=== PATIENT | female | born 1960 ===

== ENCOUNTER 2016-08-18 10:53 | Emergency (ER) | payer OTHER ==
[2016-08-18 10:59] VITALS: BMI 25.4
[2016-08-18 11:00] VITALS: RESP 18; TEMP 97.7; O2SAT 98
--- NOTE | 2016-08-18 11:24 | C.PDOC ---
History Of Present Illness 56 y/o female c/o lumps in both breasts for years that have been getting bigger ; pt reports having a mammogram in Jan 2016, but doesn't know results. pt sts lumps in both breasts started becoming painful 4 days ago. denies fever and chills. pt took ibuprofen this morning with mild decrease in pain. Time Seen by Provider: 08/18/16 11:09 Chief Complaint (Nursing): Breast Problem History Per: Patient History/Exam Limitations: no limitations Onset/Duration Of Symptoms: Days (4) Current Symptoms Are (Timing): Worse Severity: Moderate Past Medical History Reviewed: Historical Data, Nursing Documentation, Vital Signs Vital Signs: Last Vital Signs Temp 97.7 F 08/18/16 10:59 Pulse 84 08/18/16 12:04 Resp 18 08/18/16 12:04 BP 124/73 08/18/16 12:04 Pulse Ox 98 08/18/16 12:10 - Medical History PMH: No Chronic Diseases Surgical History: No Surg Hx Family History: States: Unknown Family Hx - Social History Hx Tobacco Use: No Hx Alcohol Use: No Hx Substance Use: No - Immunization History Hx Tetanus Toxoid Vaccination: No Hx Influenza Vaccination: No Hx Pneumococcal Vaccination: No Review Of Systems Constitutional: Negative for: Fever, Chills Cardiovascular: Negative for: Chest Pain Respiratory: Negative for: Cough Gastrointestinal: Negative for: Nausea, Vomiting, Abdominal Pain Genitourinary: Positive for: Other (bilateral breast pain) Skin: Negative for: Rash Neurological: Negative for: Weakness, Numbness Physical Exam - Physical Exam Appears: Non-toxic, Other (uncomfortable) Skin: Warm, Dry Head: Atraumatic, No Normacephalic Cardiovascular: Rhythm Regular, No Murmur Respiratory: Normal Breath Sounds, No Rales, No Rhonchi, No Wheezing Gastrointestinal/Abdominal: Soft, No Tenderness Pelvic: Other (left breast: no nipple discharge, approx 1 x 2 cm firm area in one o'clock position, no swelling, erythema or warmth; right breast: no nipple discharge, 1 cm firm mobile tender mass in 7 oclock position. ) Extremity: No Pedal Edema, No Swelling ED Course And Treatment O2 Sat by Pulse Oximetry: 98 Medical Decision Making Medical Decision Making: Discussed with Dr Copeland; pt had normal mammogram on Jan 21, [address] Copeland recommends bilateral breast ultrasound; her office will fax over paperwork for patient to schedule outpatient ultrasound. 1201 pm faxed rx for bilateral ultrasound received; attempted to make appt at [facility] outpatient radiology facility but pt did not have mammomgram there in Jan 2016; pt advised to return to radiology center where mammogram was done to have ultrasound, and then make follow up appoimtment with Dr Copeland. pt and family understand. Disposition Counseled Patient/Family Regarding: Diagnosis, Need For Followup, Rx Given - Disposition Referrals: Yudi Copeland [Staff Provider] - Disposition: HOME/ ROUTINE Disposition Time: 12:05 Condition: STABLE Additional Instructions: Garcia troy para la ecografa de mama en el centro de radiologa donde realiz keenan mamografa. Garcia shaylee troy con el Dr. Barrera para hacer un seguimiento de los resultados de ultrasson y para shaylee evaluacin adicional de los senos. Candelero Abajo ibuprofeno (con alimentos) segn lo prescrito para el dolor. Prescriptions: Ibuprofen [Motrin] 600 mg PO TID #30 tab Forms: Gen Discharge Inst Czech, Work Excuse Print Language: HONDURAN - Clinical Impression Clinical Impression: Pain of breast
[2016-08-18 12:04] VITALS: BP 124/73; PULSE 84
== END 2016-08-18 12:16 | disposition home or self-care (01) ==
LOC: C.ER 10:53
DX: N64.4 Mastodynia (principal)
CPT/HCPCS: 96372; 99284; J1885

== ENCOUNTER 2017-02-09 17:41 | Emergency (ER) | payer OTHER ==
[2017-02-09 17:42] VITALS: BMI 29.5
[2017-02-09 17:46] VITALS: BP 152/88; PULSE 105; RESP 20; TEMP 97.9; O2SAT 98
[2017-02-09 18:51] LABS: URINE BACTERIA RARE (<OCC); URINE BILIRUBIN NEGATIVE (NEGATIVE); URINE BLOOD NEGATIVE (NEGATIVE); URINE COLOR Colorless (YELLOW); URINE GLUCOSE (UA) NORMAL (Normal); URINE KETONE NEGATIVE (NEGATIVE); URINE LEUKOCYTE ESTERASE NEG Leu/uL (Negative); URINE PROTEIN NEGATIVE (NEGATIVE); URINE UROBILINOGEN NORMAL mg/dL (0.2-1.0); WBC URINE < 1 /hpf (0-5)
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
--- NOTE | 2017-02-09 19:10 | C.PDOC ---
History Of Present Illness 56 year old female presents to the ED for evaluation, stating she has been feeling "bumps in her vagina" for the past month. Patient also reports vaginal pain and a burning sensation when she urinates. She denies fever, chills. Time Seen by Provider: 02/09/17 17:55 Chief Complaint (Nursing): Female Genitourinary History Per: Patient History/Exam Limitations: no limitations Onset/Duration Of Symptoms: Days Current Symptoms Are (Timing): Still Present Additional History Per: Patient Past Medical History Reviewed: Historical Data, Nursing Documentation, Vital Signs Vital Signs: Last Vital Signs Temp 97.9 F 02/09/17 17:45 Pulse 105 H 02/09/17 17:45 Resp 20 02/09/17 19:35 BP 152/88 H 02/09/17 17:45 Pulse Ox 98 02/09/17 19:33 - Medical History PMH: No Chronic Diseases Surgical History: No Surg Hx Family History: States: Unknown Family Hx - Social History Hx Tobacco Use: No Hx Alcohol Use: No Hx Substance Use: No - Immunization History Hx Tetanus Toxoid Vaccination: No Hx Influenza Vaccination: No Hx Pneumococcal Vaccination: No Review Of Systems Constitutional: Negative for: Fever, Chills Genitourinary: Positive for: Other (bumps inside vagina, burning sensation when urinating ) Physical Exam - Physical Exam Appears: Non-toxic, No Acute Distress Skin: Normal Color, Warm, Dry Pelvic: Vaginal Discharge (small amount, white ), No Cervix Open, Other (no lacerations, no signs of trauma, no herpetic lesions, no evidence of abscess. Sharepoint Administrator, Puja Salamanca RN) Neurological/Psych: Oriented x3, Normal Speech, Normal Cognition ED Course And Treatment O2 Sat by Pulse Oximetry: 98 (on RA) Pulse Ox Interpretation: Normal Medical Decision Making Medical Decision Making: UA ordered and reviewed. Motrin PO administered. Case discussed with Dr. Kiley English (PIPE STRAIGHTENER call center consultant), who evaluated the patient at bedside. Dr. English states the "bumps" that patient is feeling are cystoceles and feels the patient's pain is originating from her bladder. Recommended prescribing Pyridium and possibly Uribel. Pt to follow up w OBGYN. return prev advised Disposition - Disposition Referrals: [facility] [Outside] Disposition: HOME/ ROUTINE Disposition Time: 19:09 Condition: STABLE Additional Instructions: Please follow up with an chargeback specialist in the next week. Return to the ER for any worsening symptoms, fever, abdominal pain, or for any other concerns. Prescriptions: Meth/Meblue/Sod Phos/Psal/Hyos [Uribel] 1 cap PO QID PRN #20 cap PRN Reason: bladder pain Phenazopyridine HCl [Pyridium] 200 mg PO TID PRN #10 tablet PRN Reason: dysuria Instructions: Pelvic Pain in Women (ED) Forms: Gen Discharge Inst Citizen Of [place], [employer] (Citizen Of [place]) Print Language: [place] CITIZEN - Clinical Impression Clinical Impression: Dysuria, Vaginal pain - Scribe Statement The provider has reviewed the documentation as recorded by the Scribe (Laurence English) Provider Attestation: All medical record entries made by the Scribe were at my direction and personally dictated by me. I have reviewed the chart and agree that the record accurately reflects my personal performance of the history, physical exam, medical decision making, and the department course for this patient. I have also personally directed, reviewed, and agree with the discharge instructions and disposition.
== END 2017-02-09 19:35 | disposition home or self-care (01) ==
LOC: C.ER 17:41
DX: R10.2 Pelvic and perineal pain (principal); R30.0 Dysuria

== ENCOUNTER 2017-02-21 19:35 | Emergency (ER) | payer OTHER ==
[2017-02-21 19:36] VITALS: BMI 29.5
--- NOTE | 2017-02-21 21:46 | C.PDOC ---
History Of Present Illness Patient presents to the ER with a complaint of intermittent pelvic pain for the past few weeks. Patient was seen by her BANK COMPLIANCE OFFICER this morning, Dr. Arreaga, who sent her to the ER for evaluation. Denies vaginal bleeding, fever, or chills. Time Seen by Provider: 02/21/17 21:46 Chief Complaint (Nursing): Female Genitourinary History Per: Patient History/Exam Limitations: no limitations Onset/Duration Of Symptoms: Days, Intermittent Episodes Current Symptoms Are (Timing): Still Present Quality Of Discomfort: Unable To Describe Associated Symptoms: denies: Fever, Chills, Other (Vaginal bleeding) Alleviating Factors: None Recent travel outside of the [place]: No Abnormal Vaginal Bleeding: No Past Medical History Reviewed: Historical Data, Nursing Documentation, Vital Signs Family History: States: No Known Family Hx - Social History Hx Tobacco Use: No Hx Alcohol Use: No Hx Substance Use: No - Immunization History Hx Tetanus Toxoid Vaccination: No Hx Influenza Vaccination: No Hx Pneumococcal Vaccination: No Review Of Systems Constitutional: Negative for: Fever, Chills Gastrointestinal: Negative for: Nausea, Vomiting Genitourinary: Positive for: Pelvic Pain. Negative for: Vaginal Bleeding Physical Exam - Physical Exam Appears: Non-toxic Skin: Warm, Dry Head: Normacephalic Oral Mucosa: Moist Chest: Symmetrical, No Tenderness Cardiovascular: Rhythm Regular Respiratory: No Rales, No Rhonchi, No Wheezing Gastrointestinal/Abdominal: Soft, Tenderness (Mild suprapubic), No Guarding, No Rebound Neurological/Psych: Oriented x3 ED Course And Treatment - Laboratory Results Result Diagrams: 02/21/17 22:06 02/21/17 22:06 O2 Sat by Pulse Oximetry: 98 Pulse Ox Interpretation: Normal Progress Note: Blood work, CT abd/pel, and urinalysis ordered. Reevaluation Time: 23:51 Reassessment Condition: Improved Disposition Counseled Patient/Family Regarding: Studies Performed, Diagnosis, Need For Followup - Disposition Referrals: Reed Martell MD [Medical Doctor] - Disposition: HOME/ ROUTINE Disposition Time: 21:46 Condition: FAIR Additional Instructions: Please follow up with your podiatric medicine professor and primary care doctor regarding the cat scan results Instructions: Ovarian Cyst (ED), Pulmonary Nodules (ED) Forms: [employer] (Mauritanian) Print Language: ERITREAN - Clinical Impression Clinical Impression: Vaginal pain, Ovarian cyst, Lung nodule seen on imaging study - Scribe Statement The provider has reviewed the documentation as recorded by the Scribe Adryan Blake All medical record entries made by the Scribe were at my direction and personally dictated by me. I have reviewed the chart and agree that the record accurately reflects my personal performance of the history, physical exam, medical decision making, and the department course for this patient. I have also personally directed, reviewed, and agree with the discharge instructions and disposition.
[2017-02-21 22:09] LABS: BASO # 0.2 K/uL (0.0-0.2); BASO % 1.4 % (0.0-2.0); EOS # 0.3 K/uL (0.0-0.7); EOS % 2.6 % (0.0-4.0); HEMOGLOBIN 14.4 g/dL (11.0-16.0); LYMPH % 43.2 % (20.0-40.0); MEAN CELL VOLUME 85.3 fL (81.0-99.0); MEAN CORPUSCULAR HEMOGLOBIN 28.8 pg (27.0-31.0); MEAN CORPUSCULAR HGB CONC 33.8 g/dL (33.0-37.0); MEAN PLATELET VOLUME 11.5 fL (7.2-11.7); MONO # 0.6 K/uL (0.0-0.8); MONO % 5.5 % (0.0-10.0); NEUT # 5.4 K/uL (1.8-7.0); NEUT % 47.3 % (50.0-75.0); RBC 4.99 Mil/uL (3.80-5.20); RED CELL DISTRIBUTION WIDTH 13.5 % (11.5-14.5); WHITE BLOOD COUNT 11.5 K/uL (4.8-10.8)
[2017-02-21 22:17] LABS: INR 1.1
[2017-02-21 22:20] LABS: HCG,QUALITATIVE URINE NEGATIVE (NEGATIVE)
[2017-02-21 22:25] LABS: SQUAMOUS EPITHIAL 2 /hpf (0-5); URINE BACTERIA RARE (<OCC); URINE BILIRUBIN NEGATIVE (NEGATIVE); URINE CLARITY Clear (Clear); URINE COLOR Yellow (YELLOW); URINE GLUCOSE (UA) NORMAL (Normal); URINE LEUKOCYTE ESTERASE NEG Leu/uL (Negative); URINE NITRATE NEGATIVE (NEGATIVE); URINE PROTEIN NEGATIVE (NEGATIVE); URINE UROBILINOGEN NORMAL mg/dL (0.2-1.0)
[2017-02-21 22:26] LABS: ALBUMIN 4.4 g/dL (3.5-5.0); ALT/SGPT 37 U/L (9-52); AST/SGOT 32 U/L (14-36); BLOOD UREA NITROGEN 10 mg/dL (7-17); GFR AFRICAN-AMERICAN > 60; GFR NON-AFRICAN AMERICAN > 60; URINE BLOOD NEGATIVE (NEGATIVE)
[2017-02-21] MEDS ORDERED: Iohexol 300 100 ML IJ ONE (22:29)
--- NOTE | 2017-02-21 23:33 | CT ---
EXAM: CT Abdomen and Pelvis With Intravenous Contrast CLINICAL HISTORY: 56 years old, female; Pain; Abdominal pain; Additional info: Pelvic pain, ? tumor TECHNIQUE: Axial computed tomography images of the abdomen and pelvis with intravenous contrast. All CT scans at this facility use one or more dose reduction techniques, viz.: automated exposure control; ma/kV adjustment per patient size (including targeted exams where dose is matched to indication; i.e. head); or iterative reconstruction technique. Coronal and sagittal reformatted images were created and reviewed. CONTRAST: 100 mL of [id number] administered intravenously. COMPARISON: None. FINDINGS: Lower thorax: 9 mm left lung nodule. Series 2 image #3. ABDOMEN: Liver: Unremarkable. No mass. Gallbladder and bile ducts: Cholelithiasis. No ductal dilation. Pancreas: Unremarkable. No mass. No ductal dilation. Spleen: Unremarkable. No splenomegaly. Adrenals: Unremarkable. No mass. Kidneys and ureters: Unremarkable. No solid mass. No hydronephrosis. Stomach and bowel: Unremarkable. No obstruction. Appendix: No findings to suggest acute appendicitis. PELVIS: Bladder: Unremarkable. No mass. Reproductive: 3.5 CM hypodense lesion left ovary, most likely a cyst. Recommend further characterization with ultrasound. Degenerating uterine fibroids. ABDOMEN and PELVIS: Intraperitoneal space: Unremarkable. No free air. No significant fluid collection. Bones/joints: See above. Soft tissues: Unremarkable. Vasculature: Atherosclerotic vascular disease. No abdominal aortic aneurysm. Lymph nodes: Unremarkable. No enlarged lymph nodes. IMPRESSION: 1. 3.5 CM hypodense lesion left ovary, most likely a cyst. Recommend further characterization with ultrasound. 2. Degenerating uterine fibroids. 3. 9 mm left lung nodule. For low-risk or high-risk patients consider a follow-up chest CT at 3 months. If unchanged consider an additional follow-up CT at 18-24 months. Alternatively (or additionally) PET/CT or tissue sampling could be performed. 4. Cholelithiasis. 5. Remainder of findings as above.
[2017-02-22 00:04] VITALS: BP 133/86; PULSE 82; RESP 20; O2SAT 96
== END 2017-02-22 00:20 | disposition home or self-care (01) ==
LOC: C.ER 19:35
DX: N83.209 Unspecified ovarian cyst, unspecified side (principal); R10.2 Pelvic and perineal pain; R91.1 Solitary pulmonary nodule
CPT/HCPCS: 74177; 80053; 81001; 82105; 82378; 84443; 84703; 85025; 85610; 85730; 86301; 86304; 86850; 86900; 99284; Q9967

== ENCOUNTER 2017-02-27 07:56 | Day surgery (SDC) | payer OTHER ==
[2017-02-24 13:31] VITALS: BMI 29.2
[2017-02-27] MEDS ORDERED: ceFAZolin IV 1 gm in Dextrose 1 GM/50 ML BAG IVPB ONE ×2 (11:34→12:16)
[2017-02-27] MEDS ORDERED: Midazolam 2 MG/2 ML VIAL ONE (11:46)
[2017-02-27] MEDS ORDERED: Propofol 10 mg/ml Inj (20 ML) ONE (11:46)
[2017-02-27] MEDS ORDERED: Succinylcholine Chloride 20 mg/ml Syr (5 ml) IV ONE (11:48)
[2017-02-27] MEDS ORDERED: Lactated Ringer's 1,000 ML IV ONE ×2 (12:03→13:55)
[2017-02-27] MEDS: Lidocaine 2% w Epi 1:100,000 Inj IJ ONE ×2 (12:47→13:54)
[2017-02-27] MEDS: Bupivacaine HCl 0.25% PF (10 ml) Inj ONE ×2 (12:48→13:54)
[2017-02-27] MEDS ORDERED: Neostigmine Methylsulfate 3mg/3ml Syringe IV ONE (13:23)
--- NOTE | 2017-02-27 14:10 | PCM.SURG1 ---
Surgeon's Initial Post Op Note - Surgeon's Notes Surgeon: Dr. Olmedo Chief Warden: Calista MARINOY1, Amador CESPEDES Type of Anesthesia: General Endo Pre-Operative Diagnosis: Cholelithiasis, Biliary Colic Operative Findings: see operative report Post-Operative Diagnosis: Cholelithiasis, Biliary Colic Operation Performed: Laparoscopic Cholecystectomy Specimen/Specimens Removed: Gallbladder with stone Estimated Blood Loss: EBL {In ML}: 10 Blood Products Given: N/A Drains Used: No Drains Post-Op Condition: Good Date of Surgery/Procedure: 02/27/17 Time of Surgery/Procedure: 12:25
[2017-02-27] MEDS ORDERED: Oxycodone/Acetaminophen 5/325 mg Tab PO PRN (14:11)
[2017-02-27] MEDS: HYDROmorphone 0.5 mg/0.5 ml ISec IVP PRN ×2 (14:52→15:45)
[2017-02-27] MEDS ORDERED: Lactated Ringer's 1,000 ML IV SCH (17:00)
[2017-02-27 17:43] VITALS: RESP 18
[2017-02-27 18:20] VITALS: BP 114/79; PULSE 101; TEMP 98.4; O2SAT 97
--- NOTE | 2017-03-01 00:39 | OP ---
PROCEDURE DATE: 02/27/2017 The patient is a 56-year-old female. PREOPERATIVE DIAGNOSES: Chronic cholecystitis and cholelithiasis. POSTOPERATIVE DIAGNOSES: 1. Chronic cholecystitis and cholelithiasis. 2. Post-infectious extensive adhesions. PROCEDURES DONE: 1. Laparoscopic cholecystectomy. 2. Laparoscopic extensive lysis of adhesion. SURGEON: Chico Olmedo MD. CHAMFERING MACHINE OPERATOR: Beck Grigsby. TYPE OF ANESTHESIA: General endotracheal tube anesthesia. ESTIMATED BLOOD LOSS: Around 10 mL. DRAIN: None. PATHOLOGY: Gallbladder with gallstone was sent to pathology. COMPLICATIONS: None. INTRAOPERATIVE FINDINGS: The patient had extensive post-inflammatory adhesions due to the chronic cholecystitis. The patient had thick walled gallbladder with large stones. DESCRIPTION OF PROCEDURE: On intraoperative steps, this is a 56-year-old female, who was diagnosed with chronic cholecystitis and cholelithiasis and the patient was consented for laparoscopic cholecystectomy, possible open. Brought to the OR, placed supine on the operating table. After induction of the anesthesia, abdomen was prepped and draped in the usual sterile fashion. Supraumbilical transverse incision was made. After incising skin and subcutaneous tissue, the Yasmany port was placed, pneumo was created. Another 12-mm port was placed in the midline below costal margin and two 5-mm ports were placed in the midclavicular and anterior axillary line. After the grasper and dissector were introduced and after patient was placed in right side up head up position, patient found to have extensive omental as well as duodenal and colonic adhesion to the gallbladder and lysis of adhesion was done and gallbladder was retracted cranially. Again, the duodenum was firmly attached to the Calot triangle and after proper enterolysis, the Calot triangle dissection was done. The cystic duct and cystic artery were identified and clipped at 3 places and cut in between 2 clips near the gallbladder and gallbladder dissected free from the gallbladder fossa, taken in EndoCatch bag, taken out through the umbilical port site and sent off the table for pathology. There was a proper hemostasis in each and every part of the procedure and umbilical port site was closed in 2 layers, fascia with 0 Vicryl interrupted sutures, skin with a 4-0 Monocryl, and dry sterile dressing was applied. The patient tolerated the procedure well. Count of the instruments and gauze was correct. There was no apparent complication. The patient was extubated in the OR and sent to the Postanesthesia Care Unit in stable condition. Chico Olmedo MD
== END 2017-02-27 18:20 | disposition home or self-care (01) ==
LOC: C.SDS 07:56
PROVIDERS: ATTEND Surgery Surgical Critical Care
DX: K80.10 Calculus of gallbladder with chronic cholecystitis without obstruction (principal); N73.6 Female pelvic peritoneal adhesions (postinfective)
CPT/HCPCS: 47562; 49329; 88304; J0690; J1170; J2250; J2704; J2710; J3010; J7120

== ENCOUNTER 2017-03-19 13:22 | Emergency (ER) | payer OTHER ==
[2017-03-19 13:44] VITALS: BMI 27.3
[2017-03-19 13:47] VITALS: PULSE 87; RESP 18; O2SAT 100
--- NOTE | 2017-03-19 14:23 | C.PDOC ---
History Of Present Illness 56 year old female presents to the ED for evaluation of diffuse neck pain that gradually developed over the past 4 days. Patient reports she sustained a mechanical fall while she was getting off the bus, patient states she slipped fell backwards and hit her neck against the curb. Otherwise, Patient denies LOC , visual changes, head injury, sever headache, focal deficits, weakness, numbness. Time Seen by Provider: 03/19/17 14:04 Chief Complaint (Nursing): Headache History Per: Patient History/Exam Limitations: no limitations Onset/Duration Of Symptoms: Days Current Symptoms Are (Timing): Still Present Quality: "Pain" Preceeding Symptoms: None Recent travel outside of the [place]: No Additional History Per: Patient Past Medical History Reviewed: Historical Data, Nursing Documentation, Vital Signs Vital Signs: Last Vital Signs Temp 98.3 F 03/19/17 13:44 Pulse 87 03/19/17 13:44 Resp 18 03/19/17 13:44 BP 121/74 03/19/17 13:44 Pulse Ox 100 03/19/17 14:55 - Medical History PMH: Gall Bladder Disease Denies: Chronic Kidney Disease Surgical History: No Surg Hx Family History: States: Unknown Family Hx - Social History Hx Tobacco Use: No Hx Alcohol Use: No Hx Substance Use: No - Immunization History Hx Tetanus Toxoid Vaccination: No Hx Influenza Vaccination: No Hx Pneumococcal Vaccination: No Review Of Systems Constitutional: Negative for: Fever, Chills Eyes: Negative for: Vision Change Cardiovascular: Negative for: Chest Pain, Palpitations Respiratory: Negative for: Cough, Shortness of Breath Gastrointestinal: Negative for: Nausea, Vomiting, Abdominal Pain Musculoskeletal: Positive for: Neck Pain Skin: Negative for: Rash Neurological: Negative for: Weakness, Numbness, Headache, Dizziness Physical Exam - Physical Exam Appears: Non-toxic, No Acute Distress Skin: Normal Color, Warm, Dry, No Ecchymosis Head: Atraumatic, Normacephalic Eye(s): bilateral: PERRL Ear(s): Bilateral: Normal Nose: No Discharge, No Deformity Oral Mucosa: Moist Neck: Normal ROM, Trachea Midline, No Midline Cervical Tenderness, Paracervical Tenderness (diffuse B/L from occipital area down to upper back with mod mscle spasm. NO midline tenderness.), No Step Off Deformity, Supple Chest: Symmetrical, No Deformity, No Tenderness Cardiovascular: Rhythm Regular Respiratory: No Stridor, No Wheezing Back: No CVA Tenderness, No Vertebral Tenderness Extremity: Normal ROM, No Tenderness, No Deformity, No Swelling Neurological/Psych: Oriented x3, Normal Speech, Normal Cognition, Normal Motor, Normal Sensation, Normal Reflexes Gait: Steady ED Course And Treatment O2 Sat by Pulse Oximetry: 100 (On RA) Pulse Ox Interpretation: Normal - CT Scan/US CT C-spine Other Rad Studies (CT/US): Radiology Report Reviewed CT/US Interpretation: History: Injury. Comparison: None available. Technique: Multiple contiguous axial images were performed through the cervical spine without the use of intravenous contrast. This CT exam was performed using one or more of the following dose reduction techniques: Automated exposure control, adjustment of the mA and/or kV according to patient size, and/or use of iterative reconstruction technique. Findings: Small 2 millimeter ossific density seen at the superior right facet of the C5 vertebral body best seen on series 601, image 34 which may represent a small avulsion injury versus small accessory ossicle. Clinical correlation. Reversal of the normal cervical lordosis. Mild loss of height of the inferior endplates of the C3, C4, and C5 vertebral bodies. Multilevel anterior osteophytosis from the C3 through T2 levels. Prominent posterior disc osteophyte complex at the C5-6 level. Narrowing at the atlantodental interval with bony hypertrophy and sclerosis. Punctate radiopaque density seen posterior to the mid dens, possibly productive bone and or osteophyte formation. Clinical correlation. Multilevel uncovertebral joint and facet hypertrophy. Remainder of the visualized osseous structures appear grossly. Impression: 1. Small 2 millimeter ossific density seen at the superior right facet of the C5 vertebral body seen on series 601, image 34 which may represent a small avulsion injury versus small accessory ossicle. Clinical correlation. 2. Mild loss of height of the inferior endplates of the C3, C4, and C5 vertebral bodies. 3. Multilevel anterior osteophytosis from the C3 through T2 levels. 4. Prominent posterior disc osteophyte complex at the C5-6 level. Additional prominent posterior disc osteophyte complex at the T1-2 level. 5. Punctate radiopaque density seen posterior to the mid dens, possibly productive bone and or osteophyte formation. Clinical correlation. If pain persists, consider MRI. Progress Note: Plan: -CT CS spine. -Ultram 50 mg PO. On re-evaluation, pt is afebrile, hemodynamicaly stable. Non-toxic. Ambulatory in ED with stabe gait. head: AT/NC. Neck: Supple, (-) midline tenderness. Lungs: CTA B/L, BS equal B/L. Back: (-) midline tenderness. Neuorlogicaly intact. Imaging results review and discussed with pt, possible avulsion fx C5. Soft C-colar applied. Pt advised OBS for any sign of head injury. ref. to f/u with PMD, Neuorlogy in 2-3 days for re-eavl. return if any new changes. Disposition Counseled Patient/Family Regarding: Studies Performed, Diagnosis, Need For Followup, Rx Given - Disposition Referrals: [facility] [Outside] Lonnie Ramon MD [Staff Provider] - Disposition: HOME/ ROUTINE Disposition Time: 16:09 Condition: STABLE Additional Instructions: CERVICAL COLLAR FOR 1 WEEK TAKE MEDICATION PRESCRIBED FOLLOW UP WITH PMD AND NEUROLOGY IN 2-3 DAYS FOR RE-EVALUATION. RETURN TO ED IF ANY WORSENING OR NEW CHANGES. Prescriptions: Methocarbamol [Robaxin] 500 mg PO TID #14 tab traMADol [Ultram] 50 mg PO TID #7 tab Instructions: Cervical Sprain (ED), Avulsion Fracture (ED), Head Injury (ED) Forms: [employer] (French) Print Language: ALGERIAN - Clinical Impression Clinical Impression: Cervical strain, Head injury, Avulsion fracture - PA / [employer] / Resident Statement MD/DO has reviewed & agrees with the documentation as recorded. - Scribe Statement The provider has reviewed the documentation as recorded by the Scribe Enoch Condon All medical record entries made by the Scribe were at my direction and personally dictated by me. I have reviewed the chart and agree that the record accurately reflects my personal performance of the history, physical exam, medical decision making, and the department course for this patient. I have also personally directed, reviewed, and agree with the discharge instructions and disposition.
--- NOTE | 2017-03-19 16:06 | CT ---
CT cervical spine History: Injury. Comparison: None available. Technique: Multiple contiguous axial images were performed through the cervical spine without the use of intravenous contrast. This CT exam was performed using one or more of the following dose reduction techniques: Automated exposure control, adjustment of the mA and/or kV according to patient size, and/or use of iterative reconstruction technique. Findings: Small 2 millimeter ossific density seen at the superior right facet of the C5 vertebral body best seen on series 601, image 34 which may represent a small avulsion injury versus small accessory ossicle. Clinical correlation. Reversal of the normal cervical lordosis. Mild loss of height of the inferior endplates of the C3, C4, and C5 vertebral bodies. Multilevel anterior osteophytosis from the C3 through T2 levels. Prominent posterior disc osteophyte complex at the C5-6 level. Narrowing at the atlantodental interval with bony hypertrophy and sclerosis. Punctate radiopaque density seen posterior to the mid dens, possibly productive bone and or osteophyte formation. Clinical correlation. Multilevel uncovertebral joint and facet hypertrophy. Remainder of the visualized osseous structures appear grossly. Impression: 1. Small 2 millimeter ossific density seen at the superior right facet of the C5 vertebral body seen on series 601, image 34 which may represent a small avulsion injury versus small accessory ossicle. Clinical correlation. 2. Mild loss of height of the inferior endplates of the C3, C4, and C5 vertebral bodies. 3. Multilevel anterior osteophytosis from the C3 through T2 levels. 4. Prominent posterior disc osteophyte complex at the C5-6 level. Additional prominent posterior disc osteophyte complex at the T1-2 level. 5. Punctate radiopaque density seen posterior to the mid dens, possibly productive bone and or osteophyte formation. Clinical correlation. If pain persists, consider MRI.
[2017-03-19 16:49] VITALS: BP 132/78; TEMP 98.1
== END 2017-03-19 16:30 | disposition home or self-care (01) ==
LOC: C.ER 13:22
DX: S09.90XA Unspecified injury of head, initial encounter (principal); S12.9XXA Fracture of neck, unspecified, initial encounter; S16.1XXA Strain of muscle, fascia and tendon at neck level, initial encounter; W01.0XXA Fall on same level from slipping, tripping and stumbling without subsequent striking against object, initial encounter

== ENCOUNTER 2017-06-20 17:16 | Emergency (ER) | payer SELFPAY ==
[2017-06-20 17:16] VITALS: BMI 28.6
[2017-06-20 17:32] VITALS: BP 138/81; PULSE 95; RESP 17; TEMP 98; O2SAT 98
[2017-06-20] MEDS ORDERED: Amoxicillin-Clav 875-125 mg Tab PO STA (17:49)
--- NOTE | 2017-06-20 17:50 | C.PDOC ---
History Of Present Illness 57 yo female w/PMHx of seasonal allergy come in for evaluation of sore throat, nasal congestion and dry cough gradually developed for past 4 days, (+) subjective fever. Otherwise, pt denies high fever, headache, dizziness, drooling , dysphagia, dyspnea, CP, SOB, wheezing, abd. pain, V/D, back pain, UTI sx. Ambulate to Ed for evaluation, not in any apparent distress. Time Seen by Provider: 06/20/17 17:44 Chief Complaint (Nursing): ENT Problem History Per: Patient Past Medical History Reviewed: Historical Data, Nursing Documentation, Vital Signs Vital Signs: Last Vital Signs Temp 98.0 F 06/20/17 17:27 Pulse 95 H 06/20/17 17:27 Resp 17 06/20/17 17:27 BP 138/81 06/20/17 17:27 Pulse Ox 98 06/20/17 17:50 - Medical History PMH: No Chronic Diseases, Gall Bladder Disease Denies: Chronic Kidney Disease Surgical History: Cholecystectomy Family History: States: Unknown Family Hx - Social History Hx Tobacco Use: No Hx Alcohol Use: No Hx Substance Use: No - Immunization History Hx Tetanus Toxoid Vaccination: No Hx Influenza Vaccination: No Hx Pneumococcal Vaccination: No Review Of Systems Except As Marked, All Systems Reviewed And Found Negative. Constitutional: Positive for: Fever. Negative for: Chills ENT: Positive for: Nose Discharge, Nose Congestion, Throat Pain. Negative for: Ear Discharge Respiratory: Positive for: Cough. Negative for: Shortness of Breath, Wheezing Gastrointestinal: Negative for: Nausea, Vomiting, Abdominal Pain Genitourinary: Negative for: Dysuria Musculoskeletal: Negative for: Neck Pain, Back Pain Skin: Negative for: Rash Neurological: Negative for: Altered Mental Status, Headache, Dizziness Physical Exam - Physical Exam Appears: Well, Non-toxic, No Acute Distress Skin: Normal Color, Warm, Dry, No Rash Head: Normacephalic Eye(s): bilateral: PERRL Ear(s): Bilateral: Normal Nose: No Flaring, Discharge (B/L congestion with scant clear rhinorrhea) Oral Mucosa: Moist, No Drooling Tongue: Normal Appearing Lips: Normal Appearing Throat: Erythema (mod B/L), No Exudate, No Drooling Neck: Trachea Midline, Supple, Other ((-) meningeal sign) Lymphatic: Adenopathy (Right anterior cervical) Cardiovascular: Rhythm Regular Respiratory: No Decreased Breath Sounds, No Accessory Muscle Use, No Stridor, No Wheezing Gastrointestinal/Abdominal: Soft, No Tenderness Extremity: Normal ROM, No Pedal Edema, No Deformity, No Swelling Neurological/Psych: Oriented x3, Normal Speech ED Course And Treatment O2 Sat by Pulse Oximetry: 98 Pulse Ox Interpretation: Normal Progress Note: On re-evaluation, pt is awake, comfortable, not in any apparent distress. AFebrile, hemodynamicaly stable. PulseOx 98% RA. Neck: SUpple, (-) meningeal sign. ENT: exam c/w pharyngitis. Uvula midline, no edema. Lungs: CTA B/L, BS equal B/L. ABd: benign. Neurologicaly intact. Pt advised on course of ds. ref. to f/u with PMD in 2 days for re-eval. return to ED if any worsening or new changes. Disposition Counseled Patient/Family Regarding: Diagnosis, Need For Followup, Rx Given - Disposition Referrals: [facility] [Outside] Disposition: HOME/ ROUTINE Disposition Time: 17:49 Condition: STABLE Additional Instructions: Encourage fluids Take medication as prescribed Follow up with PMD In 2 days for re-evaluation. Return to ED if any worsening or new changes. Prescriptions: Amoxicillin/Clavulanate [Augmentin 875 MG-125 MG] 1 tab PO BID #14 tab Loratadine [Claritin] 10 mg PO DAILY #20 tab Prednisone [Deltasone] 20 mg PO DAILY #3 tablet Instructions: Strep Throat (DC), Seasonal Allergies (DC) Forms: [employer] (Filipino) Print Language: SWEDISH - Clinical Impression Clinical Impression: Pharyngitis, Seasonal allergic rhinitis
[2017-06-20] MEDS ORDERED: Amoxicillin-Clav 875-125 mg Tab PO ONE (17:54)
== END 2017-06-20 18:39 | disposition home or self-care (01) ==
LOC: C.ER 17:16
DX: J02.9 Acute pharyngitis, unspecified (principal); J30.2 Other seasonal allergic rhinitis

== ENCOUNTER 2017-07-15 17:59 | Emergency (ER) | payer SELFPAY ==
[2017-07-15 17:59] VITALS: BMI 28.6
[2017-07-15 18:06] VITALS: BP 142/88; PULSE 100; RESP 18; TEMP 98.5; O2SAT 98
--- NOTE | 2017-07-15 18:13 | C.PDOC ---
History Of Present Illness 57 year old female presents to the ED complaining of cough and sore throat for the past 2 weeks. She states that the cough worsened 4 days ago. Patient reports that she was seen in the ER and was given antibiotics for the sore throat, which she finished already but she was not given anything for the cough which is persistent. Patient denies any shortness of breath, chest pain, fever, chills, nausea or vomiting. Time Seen by Provider: 07/15/17 18:08 Chief Complaint (Nursing): ENT Problem History Per: Patient History/Exam Limitations: no limitations Onset/Duration Of Symptoms: Days Current Symptoms Are (Timing): Still Present Location Of Pain: Throat Associated Symptoms: Sore Throat, Cough. denies: Fever, Chills, Nausea, Vomiting Past Medical History Reviewed: Historical Data, Nursing Documentation, Vital Signs Vital Signs: Last Vital Signs Temp 98.5 F 07/15/17 18:04 Pulse 100 H 07/15/17 18:04 Resp 18 07/15/17 18:04 BP 142/88 07/15/17 18:04 Pulse Ox 98 07/15/17 19:02 - Medical History PMH: Gall Bladder Disease Denies: Chronic Kidney Disease Surgical History: Cholecystectomy Family History: States: No Known Family Hx - Social History Hx Tobacco Use: No Hx Alcohol Use: No Hx Substance Use: No - Immunization History Hx Tetanus Toxoid Vaccination: No Hx Influenza Vaccination: No Hx Pneumococcal Vaccination: No Review Of Systems Except As Marked, All Systems Reviewed And Found Negative. Constitutional: Negative for: Fever, Chills ENT: Positive for: Throat Pain Cardiovascular: Negative for: Chest Pain Respiratory: Positive for: Cough. Negative for: Shortness of Breath Gastrointestinal: Negative for: Nausea, Vomiting Physical Exam - Physical Exam Appears: Non-toxic, Other (Actively coughing) Skin: Normal Color, Warm, Dry Head: Atraumatic, Normacephalic Eye(s): bilateral: Normal Inspection Ear(s): Bilateral: Normal Nose: Normal Oral Mucosa: Moist Throat: No Normal (Irritation), No Exudate Neck: Supple Chest: Symmetrical Cardiovascular: Rhythm Regular Respiratory: Normal Breath Sounds, No Rales, No Rhonchi, No Wheezing Neurological/Psych: Oriented x3, Normal Speech Gait: Steady ED Course And Treatment O2 Sat by Pulse Oximetry: 98 (RA) Pulse Ox Interpretation: Normal Medical Decision Making Medical Decision Making: Impression: Cough Plan: Benzonatate 100mg PO CXR Progress: CXR reviewed. No active disease. Patient stable and ready for discharge. Patient instructed to take the prescribed medications and follow up with PMD in 2-3 days for evaluation. Disposition Counseled Patient/Family Regarding: Diagnosis, Need For Followup, Rx Given - Disposition Referrals: [facility] [Outside] [facility] [facility] [Outside] Disposition: HOME/ ROUTINE Disposition Time: 18:24 Condition: GOOD Additional Instructions: Vaya a keenan mdico o la clnica en 2-5 uribe sin falta, para mas evaluacin. [place] los medicamentos roby indicado. Volver a la amanda de emergencia en cualquier momento si los sntomas persisten o empeoran. Prescriptions: Benzonatate [Tessalon Perles] 100 mg PO TID #30 sgl Prednisone [Deltasone] 20 mg PO DAILY #10 tablet Instructions: Viral Upper Respiratory Infection, Adult (DC) Print Language: MALAYSIAN - POA Present On Arrival: None - Clinical Impression Clinical Impression: Cough, URI (upper respiratory infection) - PA / MOLD UN[employer]ER / Resident Statement MD/DO has reviewed & agrees with the documentation as recorded. - Scribe Statement The provider has reviewed the documentation as recorded by the Scribe (Arlene Singh) All medical record entries made by the Scribe were at my direction and personally dictated by me. I have reviewed the chart and agree that the record accurately reflects my personal performance of the history, physical exam, medical decision making, and the department course for this patient. I have also personally directed, reviewed, and agree with the discharge instructions and disposition.
--- NOTE | 2017-07-16 10:37 | RAD ---
HISTORY: cough COMPARISON: Chest radiographs 01/31/2017 prior TECHNIQUE: Chest PA and lateral FINDINGS: LUNGS: No active pulmonary disease. PLEURA: No significant pleural effusion identified. No pneumothorax apparent. CARDIOVASCULAR: Normal. OSSEOUS STRUCTURES: No significant abnormalities. VISUALIZED UPPER ABDOMEN: Normal. OTHER FINDINGS: None. IMPRESSION: No interval acute cardiopulmonary disease appreciated.
== END 2017-07-15 18:43 | disposition home or self-care (01) ==
LOC: C.ER 17:59
DX: J06.9 Acute upper respiratory infection, unspecified (principal)

== ENCOUNTER 2017-12-06 12:38 | Emergency (ER) | payer OTHER, SELFPAY ==
[2017-12-06 12:38] VITALS: BMI 28.6
[2017-12-06 12:45] VITALS: RESP 18
[2017-12-06] MEDS ORDERED: Sodium Chloride 0.9% 1,000 ML IV ONE (13:19)
[2017-12-06] MEDS ORDERED: Sodium Chloride 0.9% 1,000 ML ONE (13:26)
[2017-12-06 13:29] LABS: HEMOGLOBIN 14.6 g/dL (11.0-16.0); MEAN CELL VOLUME 86.4 fL (81.0-99.0); MEAN CORPUSCULAR HEMOGLOBIN 29.1 pg (27.0-31.0); MEAN CORPUSCULAR HGB CONC 33.7 g/dL (33.0-37.0); MEAN PLATELET VOLUME 11.5 fL (7.2-11.7); PLATELET COUNT 272 K/uL (130-400); RBC 5.03 Mil/uL (3.80-5.20); RED CELL DISTRIBUTION WIDTH 13.3 % (11.5-14.5)
[2017-12-06 13:32] LABS: SQUAMOUS EPITHIAL 1 /hpf (0-5); URINE BILIRUBIN NEGATIVE (NEGATIVE); URINE BLOOD NEGATIVE (NEGATIVE); URINE CLARITY Clear (Clear); URINE COLOR Straw (YELLOW); URINE GLUCOSE (UA) NORMAL (Normal); URINE LEUKOCYTE ESTERASE NEG Leu/uL (Negative); URINE PROTEIN NEGATIVE (NEGATIVE); URINE UROBILINOGEN NORMAL mg/dL (0.2-1.0)
[2017-12-06 13:35] LABS: WHITE BLOOD COUNT 9.8 K/uL (4.8-10.8)
[2017-12-06 13:41] LABS: ALB/GLOB RATIO 1.2 (1.0-2.1); ALBUMIN 4.7 g/dL (3.5-5.0); ALT/SGPT 76 U/L (9-52); AST/SGOT 110 U/L (14-36); BLOOD UREA NITROGEN 15 mg/dL (7-17); CALCIUM 10.2 mg/dl (8.6-10.4); GFR NON-AFRICAN AMERICAN > 60; LIPASE 131 U/L (23-300)
[2017-12-06 14:00] LABS: LYMPHOCYTE 25 % (20-40); MONOCYTE 3 % (0-10); NEUTROPHIL 72 % (50-75); TOTAL CELLS COUNTED 100
[2017-12-06 14:05] LABS: LARGE PLATELETS PRESENT; PLATELET ESTIMATE NORMAL (NORMAL)
[2017-12-06 14:07] LABS: LYMPH % 24.6 % (20.0-40.0); MONO % 5.2 % (0.0-10.0); NEUT % 68.1 % (50.0-75.0)
[2017-12-06 14:08] LABS: BASO % 0.8 % (0.0-2.0); EOS % 1.3 % (0.0-4.0); LYMPH # 2.5 K/uL (1.0-4.3); NEUT # 6.9 K/uL (1.8-7.0)
[2017-12-06 14:09] LABS: BASO # 0.1 K/uL (0.0-0.2); EOS # 0.1 K/uL (0.0-0.7); MONO # 0.5 K/uL (0.0-0.8)
[2017-12-06 14:45] VITALS: TEMP 98
--- NOTE | 2017-12-06 14:58 | C.PDOC ---
History Of Present Illness 57 year old female presents to the ED for evaluation of worsening epigastric abdominal pain for 2 days. Patient reports feeling bloated after eating, worse when drinking when drinking water, pain does not radiate, has not had a bowel movement in 2 days. Notes that her gall bladder was removed Feb 2016. She did have multiple small stones. Also notes having prior similar symptoms. Denies nausea, vomiting, fever, and any other associated symptoms. Time Seen by Provider: 12/06/17 13:14 Chief Complaint (Nursing): Abdominal Pain History Per: Patient History/Exam Limitations: no limitations Onset/Duration Of Symptoms: Days Current Symptoms Are (Timing): Still Present Past Medical History Reviewed: Historical Data, Nursing Documentation, Vital Signs Vital Signs: Last Vital Signs Temp 98 F 12/06/17 14:44 Pulse 69 12/06/17 14:44 Resp 18 12/06/17 14:44 BP 155/82 H 12/06/17 14:44 Pulse Ox 100 12/06/17 14:44 - Medical History PMH: Gall Bladder Disease Denies: Chronic Kidney Disease Surgical History: Cholecystectomy Family History: States: Unknown Family Hx - Social History Hx Tobacco Use: No Hx Alcohol Use: No Hx Substance Use: No - Immunization History Hx Tetanus Toxoid Vaccination: No Hx Influenza Vaccination: No Hx Pneumococcal Vaccination: No Review Of Systems Constitutional: Negative for: Fever Gastrointestinal: Positive for: Abdominal Pain (epigastric.). Negative for: Nausea, Vomiting Physical Exam - Physical Exam Appears: Well, Non-toxic, Other (quiet.) Skin: Normal Color, Warm, Dry Head: Atraumatic, Normacephalic Eye(s): bilateral: Normal Inspection Oral Mucosa: Moist Neck: Normal ROM, Supple Respiratory: Normal Breath Sounds, No Rales, No Rhonchi, No Wheezing Gastrointestinal/Abdominal: Bowel Sounds, Tenderness (to the epigastric area.), No Distention, No Guarding, No Rebound Extremity: Normal ROM (x4) Neurological/Psych: Oriented x3, Normal Speech Gait: Steady ED Course And Treatment - Laboratory Results Result Diagrams: 12/06/17 13:25 12/06/17 13:25 Lab Interpretation: Abnormal (Elevated AST, ALT, Alk Phos) O2 Sat by Pulse Oximetry: 100 (RA) Pulse Ox Interpretation: Normal - CT Scan/US Abdominal Ultrasound Other Rad Studies (CT/US): Read By Radiologist, Radiology Report Reviewed CT/US Interpretation: Accession No. : [id number]. Patient Name / ID : CHRISTIANO JANE / [id number]. Exam Date : 12/06/2017 15:12:15 ( Approved ). Study Comment : Sex / Age : F / 57Y. Creator : Reginaldo Condon MD. Dictator : Reginaldo Condon MD. Rn Endoscopy : Retail Helper : Reginaldo Condon MD. Approver2 : Report Date : 12/06/2017 15:44:00. My Comment : . Date of service: 12/06/2017. HISTORY: epigastric pain. COMPARISON: None. TECHNIQUE: Sonographic evaluation of the abdomen. FINDINGS: LIVER: Measures 13.8 cm. Increased echogenicity of the liver parenchyma. No mass. No intrahepatic bile duct dilatation. GALLBLADDER: Prior cholecystectomy now apparent. COMMON BILE DUCT: Measures 7.3 mm. No stones. Limited dilatation likely a function of post cholecystectomy change. PANCREAS: The head and tail of the pancreas are obscured by overlying stomach or bowel gas with the remainder unremarkable. RIGHT KIDNEY: Measures 10.0cm. Normal echogenicity. No calculus, mass, or hydronephrosis. LEFT KIDNEY: Measures 10.3cm. Normal echogenicity. No calculus, mass, or hydronephrosis. SPLEEN: Normal in size and contour, measuring 8.6 cm. No mass. AORTA: No aneurysmal dilatation. IVC: Unremarkable. OTHER FINDINGS: None. IMPRESSION: Reiteration of hepatic steatosis or other infiltrative process. No cystic or solid parenchymal mass seen in the liver or intrahepatic biliary dilatation. Prior cholecystectomy with mild dilatation of the CBD up to 7.3 mm, likely a function of post cholecystectomy affect. No choledocholithiasis identified. Partial imaging of the pancreas with remainder the examination unremarkable. CT abdomen and pelvis Other Rad Studies (CT/US): Read By Radiologist, Radiology Report Reviewed CT/US Interpretation: Accession No. : [id number]. Patient Name / ID : CHRISTIANO JANE / [id number]. Exam Date : 12/06/2017 17:54:07 ( Approved ). Study Com ment : Sex / Age : F / 57Y. Creator : Ny Cartwright MD. Dictator : Ny Cartwright MD. Rn Endoscopy : Retail Helper : Ny Cartwright MD. Approver2 : Report Date : 12/06/2017 18:14:37. My Comment : . PROCEDURE: CT Abdomen and Pelvis with oral and IV contrast. HISTORY: epigastric pain. COMPARISON: Abdominal ultrasound performed 12/06/17, CT of the abdomen and pelvis performed 02/21/17. TECHNIQUE: Contiguous axial images of the abdomen and pelvis. Oral and IV contrast was administered. Coronal and Sagittal reformats generated and reviewed. Contrast dose: 100 cc Omnipaque 300. Radiation dose: Total exam DLP = 735.56 mGy-cm. This CT exam was performed using one or more of the following dose reduction techniques: Automated exposure control, adjustment of the mA and/or kV according to patient size, and/or use of iterative reconstruction technique. FINDINGS: LOWER THORAX: No visible consolidation, pleural effusion, or pneumothorax. 5 mm left lower lobe pulmonary nodule, stable. Small hiatal hernia/distal esophageal wall thickening. LIVER: Hepatomegaly. Hypoattenuation of the liver compatible with hepatic steatosis. GALLBLADDER AND BILE DUCTS: Dilated common bile duct in the setting of cholecystectomy. PANCREAS: Unremarkable. SPLEEN: Unremarkable. ADRENALS: Unremarkable. KIDNEYS AND URETERS: No hydronephrosis or obstructing renal calculus. Region of diminished enhancement identified involving the right kidney which may reflect pyelonephritis. Differential considerations include sequela of vascular insults/infarct or infiltrating process. Too small to characterize left renal hypodensity, statistically likely cyst. BLADDER: The urinary bladder appears unremarkable. REPRODUCTIVE: Uterus is present. Heterogeneous echotexture with numerous low and high density lesions and calcifications likely related to fibroids. 3.2 cm probable left ovarian cyst. APPENDIX: The appendix appears within normal limits of caliber. No secondary signs of acute appendicitis. BOWEL: The stomach is nondistended. The bowel loops appear within normal limits of caliber without evidence of intestinal obstruction. PERITONEUM: No significant free fluid. No definite free air. LYMPH NODES: No bulky lymphadenopathy identified. VASCULATURE: No aortic aneurysm. BONES: Degenerative changes of the spine. Sclerosis of the iliac wings of bilateral sacroiliac joints. OTHER FINDINGS: None. IMPRESSION: Region of diminished enhancement identified involving the right kidney which may reflect pyelonephritis. Differential considerations include sequela of vascular insults/infarct or infiltrating process. Too small to characterize left renal hypodensity, statistically likely cyst. Re-identified 5 mm left lower lobe pulmonary nodule. Hepatomegaly. Hypoattenuation of the liver compatible with hepatic steatosis. Dilated common bile duct in the setting of cholecystectomy. Progress Note: 3:55 Patient continues to have epigastric discomfort despite IV Morphine. Abdomen is tender without guarding. CT scan ordered. Reevaluation Time: 18:19 Reassessment Condition: Improved Medical Decision Making Medical Decision Making: Plan: --Blood sent. --Urinalysis. --US Abd Complete. --Bentyl. --Morphine. Disposition Counseled Patient/Family Regarding: Studies Performed, Diagnosis, Need For Followup, Rx Given - Disposition Referrals: [facility] [Outside] Disposition: HOME/ ROUTINE Disposition Time: 18:22 Condition: IMPROVED Prescriptions: Pantoprazole Sodium [Protonix] 40 mg PO DAILY #14 ect Instructions: Gastritis Forms: pickrset (Angolan) Print Language: SWAZI - Clinical Impression Clinical Impression: Epigastric abdominal pain - Scribe Statement The provider has reviewed the documentation as recorded by the Scribe (Yohana Conrad) Provider Attestation: All medical record entries made by the Scribe were at my direction and personally dictated by me. I have reviewed the chart and agree that the record accurately reflects my personal performance of the history, physical exam, medical decision making, and the department course for this patient. I have also personally directed, reviewed, and agree with the discharge instructions and disposition.
--- NOTE | 2017-12-06 15:47 | US ---
Date of service: 12/06/2017 HISTORY: epigastric pain COMPARISON: None. TECHNIQUE: Sonographic evaluation of the abdomen. FINDINGS: LIVER: Measures 13.8 cm. Increased echogenicity of the liver parenchyma. No mass. No intrahepatic bile duct dilatation. GALLBLADDER: Prior cholecystectomy now apparent. COMMON BILE DUCT: Measures 7.3 mm. No stones. Limited dilatation likely a function of post cholecystectomy change. PANCREAS: The head and tail of the pancreas are obscured by overlying stomach or bowel gas with the remainder unremarkable. RIGHT KIDNEY: Measures 10.0cm. Normal echogenicity. No calculus, mass, or hydronephrosis. LEFT KIDNEY: Measures 10.3cm. Normal echogenicity. No calculus, mass, or hydronephrosis. SPLEEN: Normal in size and contour, measuring 8.6 cm. No mass. AORTA: No aneurysmal dilatation. IVC: Unremarkable. OTHER FINDINGS: None. IMPRESSION: Reiteration of hepatic steatosis or other infiltrative process. No cystic or solid parenchymal mass seen in the liver or intrahepatic biliary dilatation. Prior cholecystectomy with mild dilatation of the CBD up to 7.3 mm, likely a function of post cholecystectomy affect. No choledocholithiasis identified. Partial imaging of the pancreas with remainder the examination unremarkable.
[2017-12-06] MEDS ORDERED: Iohexol 240 (50 ml) PO ONE (15:53)
[2017-12-06] MEDS ORDERED: Iohexol 240 (50 ml) ONE (16:02)
[2017-12-06] MEDS ORDERED: Iohexol 350mg/ml 100 ML ONE (17:08)
--- NOTE | 2017-12-06 18:18 | CT ---
PROCEDURE: CT Abdomen and Pelvis with oral and IV contrast. HISTORY: epigastric pain COMPARISON: Abdominal ultrasound performed 12/06/17, CT of the abdomen and pelvis performed 02/21/17 TECHNIQUE: Contiguous axial images of the abdomen and pelvis. Oral and IV contrast was administered. Coronal and Sagittal reformats generated and reviewed. Contrast dose: 100 cc Omnipaque 300 Radiation dose: Total exam DLP = 735.56 mGy-cm. This CT exam was performed using one or more of the following dose reduction techniques: Automated exposure control, adjustment of the mA and/or kV according to patient size, and/or use of iterative reconstruction technique. FINDINGS: LOWER THORAX: No visible consolidation, pleural effusion, or pneumothorax. 5 mm left lower lobe pulmonary nodule, stable. Small hiatal hernia/distal esophageal wall thickening. LIVER: Hepatomegaly. Hypoattenuation of the liver compatible with hepatic steatosis. GALLBLADDER AND BILE DUCTS: Dilated common bile duct in the setting of cholecystectomy. PANCREAS: Unremarkable. SPLEEN: Unremarkable. ADRENALS: Unremarkable. KIDNEYS AND URETERS: No hydronephrosis or obstructing renal calculus. Region of diminished enhancement identified involving the right kidney which may reflect pyelonephritis. Differential considerations include sequela of vascular insults/infarct or infiltrating process. Too small to characterize left renal hypodensity, statistically likely cyst. BLADDER: The urinary bladder appears unremarkable. REPRODUCTIVE: Uterus is present. Heterogeneous echotexture with numerous low and high density lesions and calcifications likely related to fibroids. 3.2 cm probable left ovarian cyst. APPENDIX: The appendix appears within normal limits of caliber. No secondary signs of acute appendicitis. BOWEL: The stomach is nondistended. The bowel loops appear within normal limits of caliber without evidence of intestinal obstruction. PERITONEUM: No significant free fluid. No definite free air. LYMPH NODES: No bulky lymphadenopathy identified. VASCULATURE: No aortic aneurysm. BONES: Degenerative changes of the spine. Sclerosis of the iliac wings of bilateral sacroiliac joints. OTHER FINDINGS: None. IMPRESSION: Region of diminished enhancement identified involving the right kidney which may reflect pyelonephritis. Differential considerations include sequela of vascular insults/infarct or infiltrating process. Too small to characterize left renal hypodensity, statistically likely cyst. Re-identified 5 mm left lower lobe pulmonary nodule. Hepatomegaly. Hypoattenuation of the liver compatible with hepatic steatosis. Dilated common bile duct in the setting of cholecystectomy. Fibroid uterus. Additional findings as above.
[2017-12-06 18:37] VITALS: BP 136/79; PULSE 89; O2SAT 98
== END 2017-12-06 18:36 | disposition home or self-care (01) ==
LOC: C.ER 12:38
DX: R10.13 Epigastric pain (principal)
CPT/HCPCS: 74177; 76700; 80053; 81001; 83690; 85025; 96372; 96374; 99284; J0500; J2270; J7030; Q9966; Q9967

== ENCOUNTER 2017-12-08 15:35 | Inpatient (IN) | payer OTHER, SELFPAY ==
[2017-12-08 15:39] VITALS: BMI 24.5
--- NOTE | 2017-12-08 16:10 | C.PDOC ---
History Of Present Illness 57 y/o female with history of Cholecystectomy presents to ED with c/o abdominal pain for 4 days associated with x6 episodes of vomiting today. Patient was seen at ED 2 days ago for same, had Ultrasound, Blood work and CT showing Gastritis. Patient was discharged on protonic and states pain has not improved, denies fever, chills, diarrhea, dysuria, back pain or any other complaints at this time. Time Seen by Provider: 12/08/17 15:50 Chief Complaint (Nursing): Abdominal Pain History Per: Patient History/Exam Limitations: no limitations Onset/Duration Of Symptoms: Days Current Symptoms Are (Timing): Still Present Location Of Pain/Discomfort: Diffuse Past Medical History Reviewed: Historical Data, Nursing Documentation, Vital Signs Vital Signs: Last Vital Signs Temp 98.1 F 12/08/17 15:39 Pulse 108 H 12/08/17 15:39 Resp 18 12/08/17 15:39 BP 167/103 H 12/08/17 15:39 Pulse Ox 100 12/08/17 15:39 - Medical History PMH: Gall Bladder Disease Surgical History: Cholecystectomy Family History: States: No Known Family Hx - Social History Hx Tobacco Use: No Hx Alcohol Use: No Hx Substance Use: No - Immunization History Hx Tetanus Toxoid Vaccination: No Hx Influenza Vaccination: No Hx Pneumococcal Vaccination: No Review Of Systems Constitutional: Negative for: Fever, Chills Gastrointestinal: Positive for: Nausea, Vomiting, Abdominal Pain. Negative for: Diarrhea Genitourinary: Negative for: Dysuria, Vaginal Bleeding Musculoskeletal: Negative for: Back Pain Physical Exam - Physical Exam Additional Physical Exam Comments: Constitutional: No acute distress. Head: Normocephalic. Atraumatic. Eyes: PERRL. ENT: Moist mucous membranes. Neck: Supple. Cardiovascular: Regular rate. Radial pulse 2+ bilaterally. Chest: No tenderness. Respiratory: Clear to auscultation bilaterally. GI: Soft. Diffuse tenderness worse on epigastric Back: No CVA tenderness. Musculoskeletal: No tenderness or swelling of extremities. Skin: No rash. Neurologic: Alert, no focal deficit. ED Course And Treatment - Laboratory Results Result Diagrams: 12/08/17 16:28 12/08/17 16:28 O2 Sat by Pulse Oximetry: 100 (RA) Pulse Ox Interpretation: Normal - CT Scan/US CT abd/pelvis Other Rad Studies (CT/US): Read By Radiologist, Radiology Report Reviewed CT/US Interpretation: Accession No. : [id number]. Patient Name / ID : CHRISTIANO Elizalde / [id number]. Exam Date : 12/08/2017 17:45:36 ( Approved ). Study C omment : Sex / Age : F / 57Y. Creator : Morales Henriquez MD. Dictator : Morales Henriquez MD. Coding And Reimbursement Specialist : Reservations Agent : Morales Henriquez MD. Approver2 : Report Date : 12/08/2017 18:40:53. My Comment : . Date of service: 12/08/2017. PROCEDURE: CT Abdomen and Pelvis with contrast. HISTORY: abd pain, vomiting, transaminitis. COMPARISON: 12/06/2017. TECHNIQUE: Intravenous contrast dose: 100 cc Visipaque 320. Radiation dose: Total exam DLP = 629.29 mGy-cm. This CT exam was performed usi ng one or more of the following dose reduction techniques: Automated exposure control, adjustment of the mA and/or kV according to patient size, and/or use of iterative reconstruction technique. FINDINGS: LOWER THORAX: 5 mm pulmonary nodule right middle lobe. LIVER: Hepatic steatosis. No focal masses. No intrahepatic bile duct dilatation or perihepatic ascites. GALLBLADDER AND BILE DUCTS: Status post cholecystectomy. No abnormality is seen in the gallbladder fossa. PANCREAS: Mildly edematous pancreas in peripancreatic fluid common new findings compared to the prior study. No CT evidence of necrotizing pancreatitis. SPLEEN: Unremarkable. ADRENALS: Unremarkable. No mass. KIDNEY S AND URETERS: Vague abnormal contrast-enhancing characteristics right kidney consistent with focal pyelonephritis. Similar findings identified right kidney. VASCULATURE: Unremarkable. No aortic aneurysm. No atherosclerotic calcification or mural plaque present. BOWEL: Unremarkable. No obstruction. No gross mural thickening. APPENDIX: No abnormalities to suggest acute appendicitis. No right lower quadrant inflammatory processes identified. PERITONEUM: Unremarkable. No free fluid. No free air. LYMPH NODES: Unremarkable. No enlarged lymph nodes. BLADDER: Unremarkable. REPRODUCTIVE: Stable left adnexal cyst. BONES: No acute fracture. OTHER FINDINGS: None. IMPRESSION: New findings in the pancreas suggestive of acute pancreatitis. This includes edematous change within the pancreas and peripancreatic fluid/inflammatory change. No evidence of necrotizing pancreatitis. Otherwise, no interval change. Medical Decision Making Medical Decision Making: Worsening transaminitis with severely elevated lipase. Dr. Zuluaga accepts patie nt to hospitalist service. Disposition - Disposition Disposition: HOSPITALIZED Disposition Time: 18:41 Condition: GUARDED Forms: MOMENTFACE SRO (Yoruba) - Clinical Impression Clinical Impression: Acute pancreatitis - Scribe Statement The provider has reviewed the documentation as recorded by the Cassibhailey Pacheco All medical record entries made by the Cassibhailey were at my direction and personally dictated by me. I have reviewed the chart and agree that the record accurately reflects my personal performance of the history, physical exam, medical decision making, and the department course for this patient. I have also personally directed, reviewed, and agree with the discharge instructions and disposition.
[2017-12-08] MEDS ORDERED: Sodium Chloride 0.9% 1,000 ML IV STA (16:18)
[2017-12-08] MEDS ORDERED: Sodium Chloride 0.9% 1,000 ML ONE (16:29)
[2017-12-08] MEDS ORDERED: Morphine 4 MG/ML VIAL ONE (16:29)
[2017-12-08 16:38] LABS: BASO % 0.2 % (0.0-2.0); HEMOGLOBIN 15.5 g/dL (11.0-16.0); LYMPH # 0.7 K/uL (1.0-4.3); LYMPH % 4.5 % (20.0-40.0); MEAN CELL VOLUME 87.1 fL (81.0-99.0); MEAN CORPUSCULAR HEMOGLOBIN 28.3 pg (27.0-31.0); MEAN CORPUSCULAR HGB CONC 32.4 g/dL (33.0-37.0); MEAN PLATELET VOLUME 12.6 fL (7.2-11.7); MONO # 0.4 K/uL (0.0-0.8); MONO % 2.3 % (0.0-10.0); NEUT # 14.5 K/uL (1.8-7.0); PLATELET COUNT 255 K/uL (130-400); RED CELL DISTRIBUTION WIDTH 13.5 % (11.5-14.5)
[2017-12-08 16:42] LABS: WHITE BLOOD COUNT 15.6 K/uL (4.8-10.8)
[2017-12-08 16:50] LABS: ALB/GLOB RATIO 1.1 (1.0-2.1); ALBUMIN 4.5 g/dL (3.5-5.0); ALT/SGPT 311 U/L (9-52); AST/SGOT 354 U/L (14-36); BLOOD UREA NITROGEN 15 mg/dL (7-17); CALCIUM 10.5 mg/dl (8.6-10.4); GFR NON-AFRICAN AMERICAN > 60
[2017-12-08 17:01] LABS: BANDS 4 % (0-2); LYMPHOCYTE 5 % (20-40); MONOCYTE 2 % (0-10); NEUTROPHIL 89 % (50-75); PLATELET ESTIMATE NORMAL (NORMAL); TOTAL CELLS COUNTED 100
[2017-12-08 17:02] LABS: LARGE PLATELETS PRESENT
[2017-12-08 17:18] LABS: LIPASE 27020 U/L (23-300)
[2017-12-08] MEDS ORDERED: Iodixanol 320 MG/ML 100 ML BOTTLE IV ONE (17:29)
[2017-12-08] MEDS ORDERED: DiphenhydrAMINE 50 mg/ml Inj IVP STA (17:55)
--- NOTE | 2017-12-08 18:08 | PCM.RRT ---
<Ernesto Colin - Last Filed: 12/08/17 18:05> PAINTER DRUM Nurses Assessment - Situation Date: 12/08/17 Time PAINTER DRUM was called: 17:50 PAINTER DRUM Location:: CAT Scan PAINTER DRUM Reason for Call: Looks Sicker PAINTER DRUM Called By: Other Disciplines - IV IV Inserted during PAINTER DRUM?: No - Respiratory PAINTER DRUM Delivery Method: Room Air Received Nebulizer Treatments: No Was the Patient Ventilated with Bag/Mask 100% O2?: No Secretions Suctioned?: No Was the Patient Intubated?: No Was the Patient Placed on a Ventilator?: No - Medication Medications Administered During PAINTER DRUM: IV Solucortef 100 mg IVP x1, IV Benadryl 50 mg IVP x1, IV Pepcid 20 mg IVP x1 - Diagnostic Test Ordered EKG: No Chest X-Ray: No CT Scan: No (Pt just had CAT scan done) CPR started during PAINTER DRUM?: No - Vital Signs Vital Signs: BP 154/70, T 98, P 80, R 18, O2 sat 95% RA - [place] Coma Scale Coma Scale Eye Opening: Spontaneous Coma Scale Motor: Obeys Commands Movement Coma Scale Verbal: Oriented Coma Scale Total: 15 - Time PAINTER DRUM Ended Time PAINTER DRUM Ended: 18:05 - Recommendations 5) PAINTER DRUM Level of Care Recommendations: Pt to be transferred to ED for further work-up Notifications: Attending Physician (ED Attending Physician notified) I.Reason for PAINTER DRUM - A) Acute Change in Patient: (Select all that apply): Staff member or family is worried about patient Subjective: PAINTER DRUM was called at 17:50 to evaluate patient in CAT scan. Per radiochemical technician at bedside pt had episode of welts all over face and felt itchy and warm on her face after finishing CAT scan w/ IV contrast that was ordered for her in the ED. Denied chest pain, shortness of breath, dyspnea, repsiratory distress, abd pain, n/v/d/c, urinary complaints, or other symptoms. Pt denied ever having a shellfish allergy or allergy to iodine in past. - Neurological Status (Select all that apply): Alert, Responsive, Oriented, Verbal, Follows Commands - Respiratory Oxygen Delivery Method: Room Air - Constitutional Appears: Non-toxic, No Acute Distress - Head Head Exam: ATRAUMATIC, NORMOCEPHALIC Additional Comments: Diffuse urticaria noted on face and anterior/posterior neck extending down to upper mid back in thoracic area - Eyes Eye Exam: EOMI, Normal appearance, PERRL - Respiratory Exam Respiratory Exam: Clear to Ausculation Bilateral, NORMAL BREATHING PATTERN. absent: Rales, Rhonchi, Wheezes - Cardiovascular Exam Cardiovascular Exam: REGULAR RHYTHM, +S1, +S2. absent: Gallop, Rubs, Murmur - GI/Abdominal Exam GI & Abdominal Exam: Soft, Normal Bowel Sounds. absent: Distended, Firm, Guarding, Rigid, Tenderness, Organomegaly, Rebound - Neurological Exam Neurological Exam: Alert, Awake, CN II-XII Intact, Oriented x3 - Extremities Exam Extremities Exam: Full ROM, Normal Capillary Refill, Normal Inspection. absent: Calf Tenderness, Pedal Edema Plan - Assessment of Findings&Treatment Plan A: 57F with allergic reaction 2/2 intake of IV contrast for CAT scan. P: STAT Solucortef 100 mg IVP x1, Benadryl 50 mg IVPx1, and Pepcid 20 mg IVPx1 ordered. Pt clinically stable at this time. Airway patient, AAOx3, no acute distress. Pt to be transferred from CAT scan to ED for further work-up. Attending ED physician to be notified. Dr. Issac English at bedside during PAINTER DRUM, agrees with plan. Further management as per ED team. <José Muhammad H - Last Filed: 12/09/17 07:33> Attending/Attestation - Attestation I have personally seen and examined this patient.: Yes I have fully participated in the care of the patient.: Yes I have reviewed all pertinent clinical information, including history, physical exam and plan: Yes Notes (Text): 12/09/17 07:22 Medical Hospitalist: The patient was going to CT scan and PAINTER DRUM was called after the CT scan was completed she was found to have developed hives, rashes all over her face, upper body, and upper chest. The patient was not short of breath, denied breathing difficulty, denied chest pain, denied palpitations. As mentioned above the patient was administed benadryl, and also solucortef. Patient looked well during this time. The patient had BP was stable, and HR was stable. Patient was talking to us and besides the hives on face she appeared to be stable José Muhammad
--- NOTE | 2017-12-08 18:44 | CT ---
Date of service: 12/08/2017 PROCEDURE: CT Abdomen and Pelvis with contrast HISTORY: abd pain, vomiting, transaminitis COMPARISON: 12/06/2017. TECHNIQUE: Intravenous contrast dose: 100 cc Visipaque 320. Radiation dose: Total exam DLP = 629.29 mGy-cm. This CT exam was performed using one or more of the following dose reduction techniques: Automated exposure control, adjustment of the mA and/or kV according to patient size, and/or use of iterative reconstruction technique. FINDINGS: LOWER THORAX: 5 mm pulmonary nodule right middle lobe. LIVER: Hepatic steatosis. No focal masses. No intrahepatic bile duct dilatation or perihepatic ascites. GALLBLADDER AND BILE DUCTS: Status post cholecystectomy. No abnormality is seen in the gallbladder fossa. PANCREAS: Mildly edematous pancreas in peripancreatic fluid common new findings compared to the prior study. No CT evidence of necrotizing pancreatitis. SPLEEN: Unremarkable. ADRENALS: Unremarkable. No mass. KIDNEYS AND URETERS: Vague abnormal contrast-enhancing characteristics right kidney consistent with focal pyelonephritis. Similar findings identified right kidney. VASCULATURE: Unremarkable. No aortic aneurysm. No atherosclerotic calcification or mural plaque present. BOWEL: Unremarkable. No obstruction. No gross mural thickening. APPENDIX: No abnormalities to suggest acute appendicitis. No right lower quadrant inflammatory processes identified. PERITONEUM: Unremarkable. No free fluid. No free air. LYMPH NODES: Unremarkable. No enlarged lymph nodes. BLADDER: Unremarkable. REPRODUCTIVE: Stable left adnexal cyst BONES: No acute fracture. OTHER FINDINGS: None. IMPRESSION: New findings in the pancreas suggestive of acute pancreatitis. This includes edematous change within the pancreas and peripancreatic fluid/inflammatory change. No evidence of necrotizing pancreatitis. Otherwise, no interval change.
[2017-12-08] MEDS ORDERED: Pneumococcal 23-Valent Vaccine IM ONE (22:08)
[2017-12-08] MEDS ORDERED: Influenza Vaccine 60 MCG/0.5 ML SYR (3 yr & up) IM ONE (22:09)
[2017-12-08] MEDS: Sodium Chloride 0.9% 1,000 ML IV SCH (22:22)
--- NOTE | 2017-12-08 22:26 | CP.PCM.HP ---
Addendum entered and electronically signed by Eddi Gan 12/12/17 10:07: Original Note: <Eddi Gan - Last Filed: 12/08/17 22:28> History of Present Illness - History of Present Illness History of Present Illness: PGY-1 H&P note for Dr Neo Zuluaga (hospitalist) cc: abdominal pain HPI: Patient is a 57 year old history with past medical history of cholecystitis, s/p cholecystectomy in 2017 that came to the ER for abdominal pa in. Patient states the pain started about two days ago, and she noticed the pain the worst when eating food. Patient states she has stopped eating food due to fear to get the pain. Patient describes the pain to be located in the upper part of her stomach. Patient denies pain in the back or shoulder area. Patient states she came to the ER 2 days ago for similar complains, getting an ultrasound and CT of abdomen with unremarkable findings in the pancreas. Patient was discharged with protonix 40mg PO daily. Patient had a rapid response earlier today during CT procedure for episodes of welts in her face and itchiness due to possible interaction with IV contrast. Patient denied having any throat closure, tightness or shortness of breath. Patient received benadryl and pepcid back in the ER. Patient states her welts have improved, and denies having any itchiness at this time. Patient denies states feeling nausea, but not vomiting. Patient denies fever, chills, chest pain, shortness of breath, diarrhea or constipation. PMD: Clinic Allergies: Iodine contrast - oral and IV dye Pmhx: cholecystitis Pshx: cholecystectomy Fmhx: Stomach CA (brother, father), Breast CA (sister) Social hx: denies tobacco, alcohol or illicit drug use Meds: Protonix 40 mg PO daily Present on Admission - Present on Admission Any Indicators Present on Admission: No Review of Systems - Review of Systems All systems: reviewed and no additional remarkable complaints except Review of Systems: as stated in HPI Past Patient History - Past Medical History & Family History Past Medical History?: Yes - Past Social History Smoking Status: Never Smoked - CARDIAC Hx Cardiac Disorders: No - PULMONARY Hx Respiratory Disorders: No - NEUROLOGICAL Hx Neurological Disorder: No - HEENT Hx HEENT Problems: No - RENAL Hx Chronic Kidney Disease: No - ENDOCRINE/METABOLIC Hx Endocrine Disorders: No - HEMATOLOGICAL/ONCOLOGICAL Hx Blood Disorders: No - INTEGUMENTARY Hx Dermatological Problems: No - MUSCULOSKELETAL/RHEUMATOLOGICAL Hx Musculoskeletal Disorders: No Hx Falls: No - GASTROINTESTINAL Hx Gall Bladder Disease: Yes - GENITOURINARY/GYNECOLOGICAL Hx Genitourinary Disorders: No - PSYCHIATRIC Hx Substance Use: No - SURGICAL HISTORY Hx Cholecystectomy: Yes - ANESTHESIA Hx Anesthesia: Yes Hx Anesthesia Reactions: No Hx Malignant Hyperthermia: No Meds Allergies/Adverse Reactions: Allergies Allergy/AdvReac Type Severity Reaction Status Date / Time Iodinated Contrast- Oral and Allergy RASH Verified 12/08/17 18:21 IV Dye Physical Exam - Constitutional Appears: Non-toxic, No Acute Distress - Head Exam Head Exam: ATRAUMATIC, NORMAL INSPECTION, NORMOCEPHALIC - Eye Exam Eye Exam: EOMI, Normal appearance - ENT Exam ENT Exam: Mucous Membranes Moist, Normal Exam - Neck Exam Neck exam: Positive for: Full Rom, Normal Inspection - Respiratory Exam Respiratory Exam: Clear to Auscultation Bilateral, NORMAL BREATHING PATTERN. absent: Accessory Muscle Use, Rhonchi, Wheezes, Respiratory Distress - Cardiovascular Exam Cardiovascular Exam: REGULAR RHYTHM, +S1, +S2 - GI/Abdominal Exam GI & Abdominal Exam: Normal Bowel Sounds, Soft, Tenderness. absent: Distended, Rigid Additional comments: Epigastric pain with deep palpation - Extremities Exam Extremities exam: Positive for: full ROM, normal inspection. Negative for: calf tenderness, joint swelling, pedal edema, tenderness - Back Exam Back exam: FULL ROM, NORMAL INSPECTION. absent: paraspinal tenderness, tenderness, vertebral tenderness - Neurological Exam Neurological exam: Alert, Oriented x3 - Psychiatric Exam Psychiatric exam: Normal Affect, Normal Mood - Skin Skin Exam: Dry, Intact, Normal Color, Warm Results - Vital Signs Recent Vital Signs: Last Vital Signs Temp 99.4 F 12/08/17 20:54 Pulse 108 H 12/08/17 20:54 Resp 18 12/08/17 20:54 BP 125/69 12/08/17 20:54 Pulse Ox 97 12/08/17 20:54 - Labs Result Diagrams: 12/08/17 16:28 12/08/17 16:28 Labs: Laboratory Results - last 24 hr 12/08/17 12/08/17 16:28 16:28 WBC 15.6 H D RBC 5.50 H Hgb 15.5 Hct 47.9 H MCV 87.1 MCH 28.3 MCHC 32.4 L RDW 13.5 Plt Count 255 MPV 12.6 H Neut % (Auto) 93.0 H Lymph % (Auto) 4.5 L Wallace % (Auto) 2.3 Eos % (Auto) 0.0 Baso % (Auto) 0.2 Neut # (Auto) 14.5 H Lymph # (Auto) 0.7 L Wallace # (Auto) 0.4 Eos # (Auto) 0.0 Baso # (Auto) 0.0 Neutrophils % (Manual) 89 H Band Neutrophils % 4 H Lymphocytes % (Manual) 5 L Monocytes % (Manual) 2 Platelet Estimate Normal Large Platelets Present RBC Morphology Normal Sodium 143 Potassium 4.0 Chloride 103 Carbon Dioxide 23 Anion Gap 20 BUN 15 Creatinine 0.6 L Est GFR ( Amer) > 60 Est GFR (Non-Af Amer) > 60 Random Glucose 208 H Calcium 10.5 H Total Bilirubin 1.0 AST 354 H D ALT 311 H D Alkaline Phosphatase 317 H D Total Protein 8.8 H Albumin 4.5 Globulin 4.3 H Albumin/Globulin Ratio 1.1 Lipase 88308 H Assessment & Plan - Assessment and Plan (Free Text) Plan: Acute pancreatitis -Lipase: 27, 020 -AST/ALT: 208/311 -Alk Phosp: 317 -WBC: 15.6 from 9.8 last admission -CT abdomen and pelvis: acute pancreatitis and inflammatory changes -GI consult: Dr Dupont - help is appreciated -MRCP w/o contrast - f/u results -NPO - Accuchecks Q6hr - HbA1C - f/u -AM labs, lipase, amylase in the am -NS @125 mls/hr Allergic reaction possible from IV contrast dye reaction -in ED: benadryl 50mg IVP stat, pepcid 20mg IVP stat, solu-cortef 100mg IV stat - patient reports improving symptoms - continue to monitor PPX -protonix 40 mg IVP -Morphine 1mg IVP Q4 PRN -Heparin 5000 SC BID Plan discussed with Dr Zan Gan, PGY-1 - <Neo Zuluaga - Last Filed: 12/09/17 08:12> Results - Vital Signs Recent Vital Signs: Last Vital Signs Temp 98.9 F 12/09/17 07:47 Pulse 96 H 12/09/17 07:47 Resp 20 12/09/17 07:47 BP 133/75 12/09/17 07:47 Pulse Ox 95 12/09/17 07:47 - Labs Result Diagrams: 12/08/17 16:28 12/08/17 16:28 Labs: Laboratory Results - last 24 hr 12/08/17 12/08/17 12/09/17 16:28 16:28 06:33 WBC 15.6 H D RBC 5.50 H Hgb 15.5 Hct 47.9 H MCV 87.1 MCH 28.3 MCHC 32.4 L RDW 13.5 Plt Count 255 MPV 12.6 H Neut % (Auto) 93.0 H Lymph % (Auto) 4.5 L Wallace % (Auto) 2.3 Eos % (Auto) 0.0 Baso % (Auto) 0.2 Neut # (Auto) 14.5 H Lymph # (Auto) 0.7 L Wallace # (Auto) 0.4 Eos # (Auto) 0.0 Baso # (Auto) 0.0 Neutrophils % (Manual) 89 H Band Neutrophils % 4 H Lymphocytes % (Manual) 5 L Monocytes % (Manual) 2 Platelet Estimate Normal Large Platelets Present RBC Morphology Normal Sodium 143 Potassium 4.0 Chloride 103 Carbon Dioxide 23 Anion Gap 20 BUN 15 Creatinine 0.6 L Est GFR ( Amer) > 60 Est GFR (Non-Af Amer) > 60 POC Glucose (mg/dL) 74 Random Glucose 208 H Calcium 10.5 H Total Bilirubin 1.0 AST 354 H D ALT 311 H D Alkaline Phosphatase 317 H D Total Protein 8.8 H Albumin 4.5 Globulin 4.3 H Albumin/Globulin Ratio 1.1 Lipase 97436 H Urine Color Urine Clarity Urine pH Ur Specific [place] Urine Protein Urine Glucose (UA) Urine Ketones Urine Blood Urine Nitrate Urine Bilirubin Urine Urobilinogen Ur Leukocyte Esterase Urine WBC (Auto) Urine RBC (Auto) Ur Squamous Epith Cells 12/09/17 06:59 WBC RBC Hgb Hct MCV MCH MCHC RDW Plt Count MPV Neut % (Auto) Lymph % (Auto) Wallace % (Auto) Eos % (Auto) Baso % (Auto) Neut # (Auto) Lymph # (Auto) Wallace # (Auto) Eos # (Auto) Baso # (Auto) Neutrophils % (Manual) Band Neutrophils % Lymphocytes % (Manual) Monocytes % (Manual) Platelet Estimate Large Platelets RBC Morphology Sodium Potassium Chloride Carbon Dioxide Anion Gap BUN Creatinine Est GFR ( Amer) Est GFR (Non-Af Amer) POC Glucose (mg/dL) Random Glucose Calcium Total Bilirubin AST ALT Alkaline Phosphatase Total Protein Albumin Globulin Albumin/Globulin Ratio Lipase Urine Color Yellow Urine Clarity Clear Urine pH 5.0 Ur Specific [place] 1.020 Urine Protein Negative Urine Glucose (UA) Normal Urine Ketones 1+ H Urine Blood Negative Urine Nitrate Negative Urine Bilirubin Negative Urine Urobilinogen Normal Ur Leukocyte Esterase Neg Urine WBC (Auto) 1 Urine RBC (Auto) < 1 Ur Squamous Epith Cells < 1 Attending/Attestation - Attestation I have personally seen and examined this patient.: Yes I have fully participated in the care of the patient.: Yes I have reviewed all pertinent clinical information: Yes Notes (Text): Assessment Acute pancreatitis suspected biliary tree related etiology as ast/alt/alk elevated, cbd, dilated but unchanged form last CT, s/p cholecystectomy, not jaundiced. H/o GI mailgnancies in the family Itching and wheals while getting CT with iv contrast, no symptoms during ct 3 days back suspect allergy, mast cell activation, clinically not type 1 reaction Plan NPO IVF Monitory labs MRCP GI consult GI/DVT prophylaxis If develops fever will start abx, currently afebrile.
[2017-12-09 02:41] VITALS: RESP 20
[2017-12-09] MEDS: Sodium Chloride 0.9% 1,000 ML IV SCH ×3 (05:37→21:13)
[2017-12-09 07:15] LABS: SQUAMOUS EPITHIAL < 1 /hpf (0-5); URINE BILIRUBIN NEGATIVE (NEGATIVE); URINE BLOOD NEGATIVE (NEGATIVE); URINE CLARITY Clear (Clear); URINE COLOR Yellow (YELLOW); URINE GLUCOSE (UA) NORMAL (Normal); URINE LEUKOCYTE ESTERASE NEG Leu/uL (Negative); URINE PROTEIN NEGATIVE (NEGATIVE); URINE UROBILINOGEN NORMAL mg/dL (0.2-1.0)
[2017-12-09 08:25] LABS: BASO % 0.3 % (0.0-2.0); EOS % 0.2 % (0.0-4.0); HEMOGLOBIN 14.6 g/dL (11.0-16.0); LYMPH # 3.1 K/uL (1.0-4.3); LYMPH % 18.2 % (20.0-40.0); MEAN CELL VOLUME 87.3 fL (81.0-99.0); MEAN CORPUSCULAR HEMOGLOBIN 28.7 pg (27.0-31.0); MEAN CORPUSCULAR HGB CONC 32.9 g/dL (33.0-37.0); MEAN PLATELET VOLUME 12.7 fL (7.2-11.7); MONO % 5.9 % (0.0-10.0); NEUT # 13.1 K/uL (1.8-7.0); NEUT % 75.4 % (50.0-75.0); RBC 5.1 Mil/uL (3.80-5.20); RED CELL DISTRIBUTION WIDTH 13.8 % (11.5-14.5); WHITE BLOOD COUNT 17.3 K/uL (4.8-10.8)
--- NOTE | 2017-12-09 08:39 | CP.PCM.CON ---
History of Present Illness - History of Present Illness History of Present Illness: Asked by hospitalist team for a GI consultation on this patient. 57 year old female with history of cholecystectomy, GERD who presents to hospital with complaint of progressive abdominal pain for the past 3 days. She reports post prandial epigastric pain, 7/10 intensity, associated with bloating and nausea. She denies vomiting, diarrhea, fever/chills, weight loss, rectal bleeding, change in bowel habits, or change in medication, herbal OTC use. Currently she is seen resting in bed comfortably. Her pain has improved slightly compared to initial presentation. Review of vitals from this morning shows tachycardia. Social history: non-smoker, no ETOH use Family history: father (stomach CA), sister (breast CA) Review of Systems - Review of Systems Review of Systems: - All other comprehensive 12 point review of systems performed, negative - Cardiovascular Cardiovascular: absent: Acrocyanosis, Chest Pain, Chest Pain at Rest, Chest Pain with Activity, Claudication, Diaphoresis, Dyspnea, Dyspnea on Exertion, Edema, Irregular Heart Rhythm, Pain Radiating to Arm/Neck/Jaw, Leg Edema, Leg Ulcers, Lightheadedness, Orthopnea, Palpitations, Paroxysmal Nocturnal Dyspnea, Pedal Edema, Radiating Pain, Rapid Heart Rate, Slow Heart Rate, Syncope, Other - Respiratory Respiratory: absent: Cough, Dyspnea, Hemoptysis, Dyspnea on Exertion, Wheezing, Snoring, Stridor, Pain on Inspiration, Chest Congestion, Excessive Mucous Production, Change in Mucous Color, Pain with Coughing, Other - Gastrointestinal Gastrointestinal: Abdominal Pain - Genitourinary Genitourinary: absent: Change in Urinary Stream, Difficulty Urinating, Dysuria, Flank Pain, Hematuria, Pyuria, Nocturia, Urinary Incontinence, Urinary Freq uency, Urinary Hesitance, Urinary Urgency, Voiding Freq/Small Amts, Freq UTI, Hx Renal/Bladder Calculi, Hx /Renal Surgery, Bladder Distension, Other - Musculoskeletal Musculoskeletal: absent: Abnormal Gait, Arthralgias, Atrophy, Back Pain, Deformity, Joint Swelling, Limited Range of Motion, Loss of Height, Muscle Cramps, Muscle Weakness, Myalgias, Neck Pain, Numbness, Radiating Pain into Limb, Stiffness, Tingling, Other - Neurological Neurological: absent: Abnormal Gait, Abnormal Hearing, Abnormal Movements, Abnormal Speech, Behavioral Changes, Burning Sensations, Confusion, Convulsions, Disequilibrium, Dizziness, Numbness, Focal Weakness, Frequent Falls, Headaches, Lack of Coordination, Loss of Vision, Memory Loss, Paresthesias, Radicular Pain, Restless Legs, Sensory Deficit, Syncope, Tingling, Tremor, Vertigo, Weakness, Other Visual Disturbances, Other Past Patient History - Past Medical History & Family History Past Medical History?: Yes - Past Social History Smoking Status: Never Smoked - CARDIAC Hx Cardiac Disorders: No - PULMONARY Hx Respiratory Disorders: No - NEUROLOGICAL Hx Neurological Disorder: No - HEENT Hx HEENT Problems: No - RENAL Hx Chronic Kidney Disease: No - ENDOCRINE/METABOLIC Hx Endocrine Disorders: No - HEMATOLOGICAL/ONCOLOGICAL Hx Blood Disorders: No - INTEGUMENTARY Hx Dermatological Problems: No - MUSCULOSKELETAL/RHEUMATOLOGICAL Hx Musculoskeletal Disorders: No Hx Falls: No - GASTROINTESTINAL Hx Gall Bladder Disease: Yes - GENITOURINARY/GYNECOLOGICAL Hx Genitourinary Disorders: No - PSYCHIATRIC Hx Substance Use: No - SURGICAL HISTORY Hx Cholecystectomy: Yes - ANESTHESIA Hx Anesthesia: Yes Hx Anesthesia Reactions: No Hx Malignant Hyperthermia: No Meds Allergies/Adverse Reactions: Allergies Allergy/AdvReac Type Severity Reaction Status Date / Time Iodinated Contrast- Oral and Allergy RASH Verified 12/08/17 18:21 IV Dye - Medications Medications: Current Medications Heparin Sodium (Porcine) (Heparin) 5,000 units SC Q12H [facility] Last Admin: 12/08/17 22:23 Dose: 5,000 units Sodium Chloride (Sodium Chloride 0.9%) 1,000 mls @ 125 mls/hr IV .Q8H [facility] Last Admin: 12/09/17 05:37 Dose: 125 mls/hr Morphine Sulfate (Morphine) 1 mg IVP Q4 PRN PRN Reason: Pain, moderate (4-7) Ondansetron HCl (Zofran Inj) 4 mg IVP Q6 PRN PRN Reason: Nausea/Vomiting Pantoprazole Sodium (Protonix Inj) 40 mg IVP DAILY [facility] Physical Exam - Constitutional Appears: Non-toxic, No Acute Distress - Head Exam Head Exam: NORMAL INSPECTION - Eye Exam Eye Exam: EOMI, Normal appearance - ENT Exam ENT Exam: Mucous Membranes Moist - Respiratory Exam Respiratory Exam: Clear to Auscultation Bilateral - Cardiovascular Exam Cardiovascular Exam: REGULAR RHYTHM, +S1, +S2 - GI/Abdominal Exam GI & Abdominal Exam: Normal Bowel Sounds, Soft, Tenderness Additional comments: epigastric tenderness to palpation, no rebound/guarding no palpable hepato/splenomegaly - Extremities Exam Extremities exam: Positive for: normal inspection - Neurological Exam Neurological exam: Alert, CN II-XII Intact, Oriented x3, Reflexes Normal - Psychiatric Exam Psychiatric exam: Normal Affect, Normal Mood - Skin Skin Exam: Dry, Intact, Normal Color, Warm Results - Vital Signs Recent Vital Signs: Last Vital Signs Temp 98.9 F 12/09/17 07:47 Pulse 96 H 12/09/17 07:47 Resp 20 12/09/17 07:47 BP 133/75 12/09/17 07:47 Pulse Ox 95 12/09/17 07:47 - Labs Result Diagrams: 12/08/17 16:28 12/08/17 16:28 Labs: Laboratory Results - last 24 hr 12/08/17 12/08/17 12/09/17 16:28 16:28 06:33 WBC 15.6 H D RBC 5.50 H Hgb 15.5 Hct 47.9 H MCV 87.1 MCH 28.3 MCHC 32.4 L RDW 13.5 Plt Count 255 MPV 12.6 H Neut % (Auto) 93.0 H Lymph % (Auto) 4.5 L [place] % (Auto) 2.3 Eos % (Auto) 0.0 Baso % (Auto) 0.2 Neut # (Auto) 14.5 H Lymph # (Auto) 0.7 L [place] # (Auto) 0.4 Eos # (Auto) 0.0 Baso # (Auto) 0.0 Neutrophils % (Manual) 89 H Band Neutrophils % 4 H Lymphocytes % (Manual) 5 L Monocytes % (Manual) 2 Platelet Estimate Normal Large Platelets Present RBC Morphology Normal Sodium 143 Potassium 4.0 Chloride 103 Carbon Dioxide 23 Anion Gap 20 BUN 15 Creatinine 0.6 L Est GFR ( Amer) > 60 Est GFR (Non-Af Amer) > 60 POC Glucose (mg/dL) 74 Random Glucose 208 H Calcium 10.5 H Total Bilirubin 1.0 AST 354 H D ALT 311 H D Alkaline Phosphatase 317 H D Total Protein 8.8 H Albumin 4.5 Globulin 4.3 H Albumin/Globulin Ratio 1.1 Lipase 83047 H Urine Color Urine Clarity Urine pH Ur Specific [place] Urine Protein Urine Glucose (UA) Urine Ketones Urine Blood Urine Nitrate Urine Bilirubin Urine Urobilinogen Ur Leukocyte Esterase Urine WBC (Auto) Urine RBC (Auto) Ur Squamous Epith Cells 12/09/17 06:59 WBC RBC Hgb Hct MCV MCH MCHC RDW Plt Count MPV Neut % (Auto) Lymph % (Auto) [place] % (Auto) Eos % (Auto) Baso % (Auto) Neut # (Auto) Lymph # (Auto) [place] # (Auto) Eos # (Auto) Baso # (Auto) Neutrophils % (Manual) Band Neutrophils % Lymphocytes % (Manual) Monocytes % (Manual) Platelet Estimate Large Platelets RBC Morphology Sodium Potassium Chloride Carbon Dioxide Anion Gap BUN Creatinine Est GFR ( Amer) Est GFR (Non-Af Amer) POC Glucose (mg/dL) Random Glucose Calcium Total Bilirubin AST ALT Alkaline Phosphatase Total Protein Albumin Globulin Albumin/Globulin Ratio Lipase Urine Color Yellow Urine Clarity Clear Urine pH 5.0 Ur Specific [place] 1.020 Urine Protein Negative Urine Glucose (UA) Normal Urine Ketones 1+ H Urine Blood Negative Urine Nitrate Negative Urine Bilirubin Negative Urine Urobilinogen Normal Ur Leukocyte Esterase Neg Urine WBC (Auto) 1 Urine RBC (Auto) < 1 Ur Squamous Epith Cells < 1 Assessment & Plan - Assessment and Plan (Free Text) Assessment: GERD Abdominal pain - acute pancreatitis, unclear etiology Abdominal US reviewed showing 7.3 mm CBD, s/p cholecystectomy CT imaging reviewed showing sivan-pancreatic edema, +R sided pyelonephritis Plan: - NPO - Continue with aggressive IVF hydration therapy, supportive care - Anti-emetic therapy PRN - MRCP ordered by medical team, follow up results though do not suspect biliary obstruction - Continue to monitor LFTs - Obtain lipid profile, IGG4 level - Will discontinue PPI therapy since there is proven association with pancreatitis, this is patient's only home medication - Eventually, patient would benefit from elective outpatient EUS of pancreas for further evaluation. Will continue to monitor patient clinical course.
[2017-12-09 08:50] LABS: ALB/GLOB RATIO 1.1 (1.0-2.1); ALBUMIN 3.8 g/dL (3.5-5.0); ALT/SGPT 201 U/L (9-52); AMYLASE 642 U/L (30-110); AST/SGOT 122 U/L (14-36); BLOOD UREA NITROGEN 10 mg/dL (7-17); CALCIUM 9.7 mg/dl (8.6-10.4); GFR NON-AFRICAN AMERICAN > 60
[2017-12-09 09:00] LABS: LIPASE 4474 U/L (23-300)
--- NOTE | 2017-12-09 09:34 | CP.PCM.PN ---
<Clifton Coyne E - Last Filed: 12/09/17 13:43> Subjective - Date & Time of Evaluation Date of Evaluation: 12/09/17 Time of Evaluation: 09:15 - Subjective Subjective: Progress note ( Dr. Muhammad's service) Patient was seen and examined at bedside. Patient reports that she is with mild improvement of symptoms but still admits to epigastric pain and left lower abdominal pain but denies any symptoms of nausea, vomiting, fever, chills, chest pain, palpitations, diarrhea or constipation/ hematochezia. Objective - Vital Signs/Intake and Output Vital Signs (last 24 hours): Temp Pulse Resp BP Pulse Ox 98.9 F 96 H 20 133/75 95 12/09/17 07:47 12/09/17 07:47 12/09/17 07:47 12/09/17 07:47 12/09/17 07:47 Intake and Output: 12/09/17 12/09/17 06:59 18:59 Intake Total 1000 Balance 1000 - Medications Medications: Current Medications Heparin Sodium (Porcine) (Heparin) 5,000 units SC Q12H [facility] Last Admin: 12/08/17 22:23 Dose: 5,000 units Sodium Chloride (Sodium Chloride 0.9%) 1,000 mls @ 125 mls/hr IV .Q8H [facility] Last Admin: 12/09/17 05:37 Dose: 125 mls/hr Morphine Sulfate (Morphine) 1 mg IVP Q4 PRN PRN Reason: Pain, moderate (4-7) Ondansetron HCl (Zofran Inj) 4 mg IVP Q6 PRN PRN Reason: Nausea/Vomiting - Labs Labs: 12/09/17 08:20 12/09/17 08:20 - Constitutional Appears: Well, No Acute Distress - Head Exam Head Exam: ATRAUMATIC, NORMAL INSPECTION - Eye Exam Eye Exam: EOMI, Normal appearance - ENT Exam ENT Exam: Mucous Membranes Moist - Respiratory Exam Respiratory Exam: Clear to Ausculation Bilateral, NORMAL BREATHING PATTERN. absent: Prolonged Expiratory Phase, Rhonchi, Wheezes, Respiratory Distress - Cardiovascular Exam Cardiovascular Exam: REGULAR RHYTHM, +S1, +S2 - GI/Abdominal Exam GI & Abdominal Exam: Soft, Tenderness, Normal Bowel Sounds Additional comments: Tenderness with palpation of the epigastric region and left lower quadrant No bruising noted on the flank area and epigastric/Umbilical region - Extremities Exam Extremities Exam: Normal Inspection. absent: Calf Tenderness, Pedal Edema, Tenderness - Back Exam Back Exam: NORMAL INSPECTION. absent: CVA tenderness (L), CVA tenderness (R) - Neurological Exam Neurological Exam: Alert, Awake, Oriented x3 - Psychiatric Exam Psychiatric exam: Normal Affect, Normal Mood - Skin Skin Exam: Normal Color Assessment and Plan (1) Acute pancreatitis Assessment & Plan: GI consult, Dr. Dupont * Management as per recommendation * Avoid PPI use as per GI recommendation Lipase downtrendin,0020--->4,474 Lipid Panel: TGL: 74, Chol:143, LDL: 102 and HDL: 30 CT Abdomen/Pelvis: New findings in the pancreas suggestive of acute pancreatitis. This includes edematous change within the pancreas and peripancreatic fluid/inflammatory change. No evidence of necrotizing pancreatitis. Otherwise, no interval change. F/u MRCP report: NPO NS @ 150CC/HR Pain control: Morphine 1mg IV Q4H PRN Status: Acute (2) Elevated liver enzymes Assessment & Plan: Down trending Continue to monitor with labs F/u MRCP Avoid hepatoxic agents Status: Acute (3) Leukocytosis Assessment & Plan: Afebrile 2/2 to acute pancreatitis and Solumedrol 100mg IV given once Continue to monitor with labs. If no improvement, consider other work-up Status: Acute (4) Hypokalemia Assessment & Plan: K+: 3.4 KCL 40meq once Continue to monitor with labs Status: Acute (5) Prophylactic measure Assessment & Plan: DVT: Heparin 5,000 units SC Q12H GI: Not indicated and contraindicated as per GI recommendation All management and plans discussed with Dr. Muhammad Status: Acute <José Muhammad H - Last Filed: 12/09/17 16:04> Objective - Vital Signs/Intake and Output Vital Signs (last 24 hours): Temp Pulse Resp BP Pulse Ox 99.1 F 90 20 155/81 H 95 12/09/17 15:00 12/09/17 15:00 12/09/17 15:00 12/09/17 15:00 12/09/17 15:00 Intake and Output: 12/09/17 12/09/17 06:59 18:59 Intake Total 1000 900 Balance 1000 900 - Medications Medications: Current Medications Heparin Sodium (Porcine) (Heparin) 5,000 units SC Q12H [facility] Last Admin: 12/09/17 10:38 Dose: Not Given Potassium Chloride (Potassium Chloride 20 Meq/100 Ml) 20 meq in 100 mls @ 50 mls/hr IVPB ONCE ONE Stop: 12/09/17 17:40 Sodium Chloride (Sodium Chloride 0.9%) 1,000 mls @ 150 mls/hr IV .Q6H40M [facility] Last Admin: 12/09/17 14:02 Dose: 150 mls/hr Morphine Sulfate (Morphine) 1 mg IVP Q4 PRN PRN Reason: Pain, moderate (4-7) Ondansetron HCl (Zofran Inj) 4 mg IVP Q6 PRN PRN Reason: Nausea/Vomiting - Labs Labs: 12/09/17 08:20 12/09/17 08:20 Attending/Attestation - Attestation I have personally seen and examined this patient.: Yes I have fully participated in the care of the patient.: Yes I have reviewed all pertinent clinical information, including history, physical exam and plan: Yes Notes (Text): Medical attending: Patient was seen and examined by me. Agree with the above note by the medical case manager The patient was not in any acute distress when I came and saw the patient She was having some abdominal tenderness - less so she tells us than when she first came. The Lipase has decreased from 27K to 4K with IVF. Patient went for MRCP, the results of which are pending at the moment. There is a history of cholesectomy in the past. José Muhammad
[2017-12-09 11:29] LABS: HDL CHOLESTEROL 30 mg/dL (30-70)
[2017-12-09 11:40] LABS: LDL CHOLESTEROL 102 mg/dL (0-129)
[2017-12-10] MEDS: Sodium Chloride 0.9% 1,000 ML IV SCH ×4 (04:03→23:42)
--- NOTE | 2017-12-10 07:28 | CP.PCM.PN ---
<Hector Coulter - Last Filed: 12/10/17 08:36> Subjective - Date & Time of Evaluation Date of Evaluation: 12/10/17 Time of Evaluation: 07:25 - Subjective Subjective: Patient is feeling better this AM but still has a small amount of pain in the epigastric area. She is NPO, and is not hungry at this time. She is getting IVF at 150cc/hr and making yellow urine. Objective - Vital Signs/Intake and Output Vital Signs (last 24 hours): Temp Pulse Resp BP Pulse Ox 99.1 F 102 H 20 150/81 97 12/10/17 00:00 12/10/17 00:00 12/10/17 00:00 12/10/17 00:00 12/10/17 00:00 Intake and Output: 12/10/17 12/10/17 06:59 18:59 Intake Total 2600 Output Total 600 Balance 2000 - Medications Medications: Current Medications Heparin Sodium (Porcine) (Heparin) 5,000 units SC Q12H [facility] Last Admin: 12/09/17 21:15 Dose: 5,000 units Sodium Chloride (Sodium Chloride 0.9%) 1,000 mls @ 150 mls/hr IV .Q6H40M [facility] Last Admin: 12/10/17 04:03 Dose: 150 mls/hr Morphine Sulfate (Morphine) 1 mg IVP Q4 PRN PRN Reason: Pain, moderate (4-7) Last Admin: 12/10/17 07:18 Dose: 1 mg Ondansetron HCl (Zofran Inj) 4 mg IVP Q6 PRN PRN Reason: Nausea/Vomiting - Labs Labs: 12/09/17 08:20 12/09/17 08:20 - Constitutional Appears: Non-toxic, No Acute Distress - Head Exam Head Exam: NORMAL INSPECTION - Eye Exam Eye Exam: Normal appearance - ENT Exam ENT Exam: Mucous Membranes Moist - Respiratory Exam Respiratory Exam: Clear to Ausculation Bilateral, NORMAL BREATHING PATTERN. absent: Rales, Rhonchi - Cardiovascular Exam Cardiovascular Exam: REGULAR RHYTHM, +S1, +S2 - GI/Abdominal Exam GI & Abdominal Exam: Soft, Tenderness, Normal Bowel Sounds - Extremities Exam Extremities Exam: Normal Inspection - Neurological Exam Neurological Exam: Alert, Awake, Oriented x3 - Psychiatric Exam Psychiatric exam: Normal Affect, Normal Mood - Skin Skin Exam: Dry, Normal Color Assessment and Plan - Assessment and Plan (Free Text) Assessment: GERD Abdominal pain - acute pancreatitis, unclear etiology Abdominal US reviewed showing 7.3 mm CBD, s/p cholecystectomy CT imaging reviewed showing sivan-pancreatic edema, +R sided pyelonephritis Plan: - Advance diet to full liquid. Can advance to low fat diet tonight if tolerating. - Continue with aggressive IVF hydration therapy, supportive care. Continue to monitor fluid status, and decrease rate or DC if tolerating PO well. Defer to primary team. - Anti-emetic therapy PRN - MRCP ordered by medical team, follow up results though do not suspect biliary obstruction. PENDING final read. - Continue to monitor LFTs - IGG4 level. PENDING. - Lipid panel normal. - discontinue PPI therapy since there is proven association with pancreatitis, this is patient's only home medication - Eventually, patient would benefit from elective outpatient EUS of pancreas for further evaluation. Will continue to monitor patient clinical course. - Would consider abx for possible pyelonephritis, discussed with primary team. <Bhargav Dupont - Last Filed: 12/10/17 08:42> Objective - Vital Signs/Intake and Output Vital Signs (last 24 hours): Temp Pulse Resp BP Pulse Ox 98.7 F 101 H 20 144/78 96 12/10/17 07:46 12/10/17 07:46 12/10/17 07:46 12/10/17 07:46 12/10/17 07:46 Intake and Output: 12/10/17 12/10/17 06:59 18:59 Intake Total 2600 Output Total 600 Balance 2000 - Medications Medications: Current Medications Heparin Sodium (Porcine) (Heparin) 5,000 units SC Q12H [facility] Last Admin: 12/09/17 21:15 Dose: 5,000 units Sodium Chloride (Sodium Chloride 0.9%) 1,000 mls @ 150 mls/hr IV .Q6H40M [facility] Last Admin: 12/10/17 04:03 Dose: 150 mls/hr Morphine Sulfate (Morphine) 1 mg IVP Q4 PRN PRN Reason: Pain, moderate (4-7) Last Admin: 12/10/17 07:18 Dose: 1 mg Ondansetron HCl (Zofran Inj) 4 mg IVP Q6 PRN PRN Reason: Nausea/Vomiting - Labs Labs: 12/10/17 07:20 12/09/17 08:20 Attending/Attestation - Attestation I have personally seen and examined this patient.: Yes I have fully participated in the care of the patient.: Yes I have reviewed all pertinent clinical information, including history, physical exam and plan: Yes Notes (Text): 12/10/17 08:40 I have seen and examined patient with GI fellow. No acute events overnight, she continues to report epigastric discomfort though improved compared to yesterday. Additionally, she also reports lower quadrant/suprapubic pain following urination. She otherwise denies nausea, vomiting, fever/chills. Review of vitals from today shows tachycardia. Abdominal pain - acute pancreatitis of unclear etiology Pyelonephritis - Full liquid diet as tolerated - Continue with IVF hydration, supportive care - Awaiting IGG4 level - Given complaint of abdominal pain following urination along with rising WBC and findings on CT imaging, would suggest beginning antibiotic therapy and obtaining urine culture - LFTs trending down, awaiting results of MRCP - Will monitor patient clinical course
[2017-12-10 07:35] LABS: BASO # 0.2 K/uL (0.0-0.2); EOS # 0.1 K/uL (0.0-0.7); EOS % 0.5 % (0.0-4.0); HEMOGLOBIN 14.4 g/dL (11.0-16.0); LYMPH # 2.8 K/uL (1.0-4.3); MEAN CORPUSCULAR HEMOGLOBIN 29.3 pg (27.0-31.0); MEAN CORPUSCULAR HGB CONC 33.6 g/dL (33.0-37.0); MEAN PLATELET VOLUME 12.1 fL (7.2-11.7); MONO # 1.2 K/uL (0.0-0.8); MONO % 6.2 % (0.0-10.0); NEUT # 15.4 K/uL (1.8-7.0); NEUT % 78.3 % (50.0-75.0); NRBC % 0.1 % (0.0-2.0); RBC 4.92 Mil/uL (3.80-5.20); RED CELL DISTRIBUTION WIDTH 13.3 % (11.5-14.5); WHITE BLOOD COUNT 19.7 K/uL (4.8-10.8)
[2017-12-10 09:19] LABS: BLOOD UREA NITROGEN 7 mg/dL (7-17); GFR NON-AFRICAN AMERICAN > 60
[2017-12-10 09:20] LABS: ALB/GLOB RATIO 1.1 (1.0-2.1); CALCIUM 9.6 mg/dl (8.6-10.4)
[2017-12-10 09:21] LABS: ALT/SGPT 129 U/L (9-52); AST/SGOT 56 U/L (14-36)
[2017-12-10 09:30] LABS: LIPASE 271 U/L (23-300)
[2017-12-10 11:22] LABS: SQUAMOUS EPITHIAL < 1 /hpf (0-5); URINE BILIRUBIN NEGATIVE (NEGATIVE); URINE BLOOD 1+ (NEGATIVE); URINE CLARITY Clear (Clear); URINE COLOR Straw (YELLOW); URINE GLUCOSE (UA) NORMAL (Normal); URINE LEUKOCYTE ESTERASE NEG Leu/uL (Negative); URINE PROTEIN NEGATIVE (NEGATIVE); URINE UROBILINOGEN NORMAL mg/dL (0.2-1.0)
--- NOTE | 2017-12-10 11:49 | CP.PCM.PN ---
<Clifton Coyne - Last Filed: 12/10/17 11:45> Subjective - Date & Time of Evaluation Date of Evaluation: 12/10/17 Time of Evaluation: 08:30 - Subjective Subjective: Progress note ( Dr. Muhammad's service) Patient was seen and examined at bedside. Patient reports that she is with mild improvement of symptoms but still admits to epigastric pain and left lower abdominal pain and pain/lower abdominal pain with urination but denies any symptoms of nausea, vomiting, fever, chills, chest pain, palpitations, diarrhea or constipation/ hematochezia. Objective - Vital Signs/Intake and Output Vital Signs (last 24 hours): Temp Pulse Resp BP Pulse Ox 98.7 F 101 H 20 144/78 96 12/10/17 07:46 12/10/17 07:46 12/10/17 07:46 12/10/17 07:46 12/10/17 07:46 Intake and Output: 12/10/17 12/10/17 06:59 18:59 Intake Total 2600 Output Total 600 Balance 2000 - Medications Medications: Current Medications Heparin Sodium (Porcine) (Heparin) 5,000 units SC Q12H [facility] Last Admin: 12/10/17 10:32 Dose: 5,000 units Sodium Chloride (Sodium Chloride 0.9%) 1,000 mls @ 150 mls/hr IV .Q6H40M [facility] Last Admin: 12/10/17 10:33 Dose: 150 mls/hr Ceftriaxone Sodium 1 gm/ (Sodium Chloride) 100 mls @ 100 mls/hr IVPB Q12H [facility]; Protocol Last Admin: 12/10/17 10:00 Dose: 100 mls/hr Morphine Sulfate (Morphine) 1 mg IVP Q4 PRN PRN Reason: Pain, moderate (4-7) Last Admin: 12/10/17 07:18 Dose: 1 mg Ondansetron HCl (Zofran Inj) 4 mg IVP Q6 PRN PRN Reason: Nausea/Vomiting - Labs Labs: 12/10/17 07:20 12/10/17 07:20 - Head Exam Head Exam: ATRAUMATIC, NORMAL INSPECTION - Eye Exam Eye Exam: EOMI, Normal appearance - ENT Exam ENT Exam: Mucous Membranes Moist - Respiratory Exam Respiratory Exam: Clear to Ausculation Bilateral, NORMAL BREATHING PATTERN. absent: Prolonged Expiratory Phase, Rhonchi, Wheezes, Respiratory Distress - Cardiovascular Exam Cardiovascular Exam: REGULAR RHYTHM, +S1, +S2 - GI/Abdominal Exam GI & Abdominal Exam: Soft, Tenderness, Normal Bowel Sounds Additional comments: Tenderness with palpation of the epigastric region and left lower quadrant No bruising noted on the flank area and epigastric/Umbilical region - Extremities Exam Extremities Exam: Normal Inspection. absent: Calf Tenderness, Full ROM, Pedal Edema - Back Exam Additional comments: Mild tenderness on palpation on R>L flank region - Neurological Exam Neurological Exam: Alert, Awake, Oriented x3 - Psychiatric Exam Psychiatric exam: Normal Affect, Normal Mood - Skin Skin Exam: Normal Color Assessment and Plan (1) Acute pancreatitis Assessment & Plan: GI consult, Dr. Dupont * Management as per recommendation * Avoid PPI use as per GI recommendation due to literature with associate off PPI and pancreatitis * Autoimmune work-up * Patient may benefit from an endoscopy ultrasound outpatient as per conversation during GI round Lipase downtrendin,0020--->4,474---> 271, lipase has normalized Lipid Panel: TGL: 74, Chol:143, LDL: 102 and HDL: 30 CT Abdomen/Pelvis: New findings in the pancreas suggestive of acute pancreatiti s. This includes edematous change within the pancreas and peripancreatic fluid/inflammatory change. No evidence of necrotizing pancreatitis. Otherwise, no interval change. F/u MRCP official report: Advanced to Liquid diet as per GI recommendation. Recommendation to advance to low-fat diet by dinner time or tomorrow morning NS @ 150CC/HR Pain control: Morphine 1mg IV Q4H PRN Status: Acute (2) Elevated liver enzymes Assessment & Plan: Down trending Continue to monitor with labs F/u MRCP Avoid hepatoxic agents Status: Acute (3) Leukocytosis Assessment & Plan: Afebrile 2/2 to acute pancreatitis and Solumedrol 100mg IV given once/ UTI ( Patient with urinary symptoms) Abdomen/Pelvis CT: Vague abnormal contrast-enhancing characteristics right kidney consistent with focal pyelonephritis. Similar findings identified right kidney. Labs: UA: Negative for UTI F/u UC Rocephin 1gm Q12H Florastor 250mg PO BID Status: Acute (4) Hypokalemia Assessment & Plan: K+: 3.4 KCL 40meq once Continue to monitor with labs Status: Acute (5) Prophylactic measure Assessment & Plan: DVT: Heparin 5,000 units SC Q12H GI: Not indicated and contraindicated as per GI recommendation All management and plans discussed with Dr. Muhammad Status: Acute <José Muhammad H - Last Filed: 12/10/17 16:29> Objective - Vital Signs/Intake and Output Vital Signs (last 24 hours): Temp Pulse Resp BP Pulse Ox 99.1 F 99 H 20 155/85 H 96 12/10/17 16:00 12/10/17 16:00 12/10/17 16:00 12/10/17 16:00 12/10/17 16:00 Intake and Output: 12/10/17 12/10/17 06:59 18:59 Intake Total 2600 1550 Output Total 600 Balance 2000 1550 - Medications Medications: Current Medications Heparin Sodium (Porcine) (Heparin) 5,000 units SC Q12H [facility] Last Admin: 12/10/17 10:32 Dose: 5,000 units Sodium Chloride (Sodium Chloride 0.9%) 1,000 mls @ 150 mls/hr IV .Q6H40M [facility] Last Admin: 12/10/17 10:33 Dose: 150 mls/hr Ceftriaxone Sodium 1 gm/ (Sodium Chloride) 100 mls @ 100 mls/hr IVPB Q12H [facility]; Protocol Last Admin: 12/10/17 10:00 Dose: 100 mls/hr Morphine Sulfate (Morphine) 1 mg IVP Q4 PRN PRN Reason: Pain, moderate (4-7) Last Admin: 12/10/17 07:18 Dose: 1 mg Ondansetron HCl (Zofran Inj) 4 mg IVP Q6 PRN PRN Reason: Nausea/Vomiting Saccharomyces Boulardii (Florastor) 250 mg PO BID [facility] - Labs Labs: 12/10/17 07:20 12/10/17 07:20 Attending/Attestation - Attestation I have personally seen and examined this patient.: Yes I have fully participated in the care of the patient.: Yes I have reviewed all pertinent clinical information, including history, physical exam and plan: Yes Notes (Text): 12/10/17 16:21 Medical attending: Patient was seen and examined by me. Reviewed the above note by the resident The patient was NOT in any acute distress Her diet has been advanced by GI. She reported feeling well. There was minimal abdominal tenderness. For the time being will continue with the IVF Also WBC is elevated, the previous CT suggested she may have a pyelonephritis and so we added on Rocephin IV Emperically. That being said I looked over the recent UA and this appeared fine. We will repeat the UA. José Muhammad
[2017-12-10] MEDS: Saccharomyces Boulardi 250 mg Cap PO SCH (17:45)
[2017-12-11] MEDS: Sodium Chloride 0.9% 1,000 ML IV SCH ×2 (05:13→14:52)
[2017-12-11 08:04] LABS: BASO # 0.1 K/uL (0.0-0.2); BASO % 0.8 % (0.0-2.0); EOS # 0.2 K/uL (0.0-0.7); EOS % 1.6 % (0.0-4.0); HEMOGLOBIN 13.5 g/dL (11.0-16.0); LYMPH # 2.8 K/uL (1.0-4.3); LYMPH % 18.8 % (20.0-40.0); MEAN CORPUSCULAR HEMOGLOBIN 29.1 pg (27.0-31.0); MEAN CORPUSCULAR HGB CONC 33.5 g/dL (33.0-37.0); MEAN PLATELET VOLUME 12.6 fL (7.2-11.7); MONO % 6.8 % (0.0-10.0); NEUT # 10.7 K/uL (1.8-7.0); NRBC % 0.1 % (0.0-2.0); RBC 4.63 Mil/uL (3.80-5.20); RED CELL DISTRIBUTION WIDTH 13.1 % (11.5-14.5); WHITE BLOOD COUNT 14.8 K/uL (4.8-10.8)
[2017-12-11 08:20] VITALS: BP 149/79; PULSE 101; TEMP 98.3; O2SAT 97
--- NOTE | 2017-12-11 08:31 | CP.PCM.PN ---
Subjective - Date & Time of Evaluation Date of Evaluation: 12/11/17 Time of Evaluation: 08:31 Objective - Vital Signs/Intake and Output Vital Signs (last 24 hours): Temp Pulse Resp BP Pulse Ox 98.3 F 101 H 20 149/79 97 12/11/17 08:18 12/11/17 08:18 12/11/17 08:18 12/11/17 08:18 12/11/17 08:18 Intake and Output: 12/11/17 12/11/17 06:59 18:59 Intake Total 1500 1200 Output Total 400 Balance 1100 1200 - Medications Medications: Current Medications Heparin Sodium (Porcine) (Heparin) 5,000 units SC Q12H [facility] Last Admin: 12/10/17 21:25 Dose: 5,000 units Sodium Chloride (Sodium Chloride 0.9%) 1,000 mls @ 150 mls/hr IV .Q6H40M [facility] Last Admin: 12/11/17 05:13 Dose: 150 mls/hr Ceftriaxone Sodium 1 gm/ (Sodium Chloride) 100 mls @ 100 mls/hr IVPB Q12H [facility]; Protocol Last Admin: 12/10/17 20:31 Dose: 100 mls/hr Morphine Sulfate (Morphine) 1 mg IVP Q4 PRN PRN Reason: Pain, moderate (4-7) Last Admin: 12/11/17 05:12 Dose: 1 mg Ondansetron HCl (Zofran Inj) 4 mg IVP Q6 PRN PRN Reason: Nausea/Vomiting Saccharomyces Boulardii (Florastor) 250 mg PO BID [facility] Last Admin: 12/10/17 17:45 Dose: 250 mg - Labs Labs: 12/11/17 07:51 12/10/17 07:20
[2017-12-11 08:38] LABS: ALB/GLOB RATIO 1.1 (1.0-2.1); ALBUMIN 3.7 g/dL (3.5-5.0); ALT/SGPT 87 U/L (9-52); AST/SGOT 38 U/L (14-36); BLOOD UREA NITROGEN 5 mg/dL (7-17); GFR NON-AFRICAN AMERICAN > 60
--- NOTE | 2017-12-11 08:55 | CP.PCM.PN ---
<Ronny Chew - Last Filed: 12/11/17 10:12> Subjective - Date & Time of Evaluation Date of Evaluation: 12/11/17 Time of Evaluation: 07:30 - Subjective Subjective: PGY6 GI Fellow Progress Note Patient seen and examined bedside this morning. The patient states that she continues to have epigastric abdominal pain and bloating after minimal oral intake. Pain is severe after eating and thus she has a fear of intake. Not passing bowel movement since last Monday and no flatus since Monday. 12 system ROS performed and negative except where stated Objective - Vital Signs/Intake and Output Vital Signs (last 24 hours): Temp Pulse Resp BP Pulse Ox 98.3 F 101 H 20 149/79 97 12/11/17 08:18 12/11/17 08:18 12/11/17 08:18 12/11/17 08:18 12/11/17 08:18 Intake and Output: 12/11/17 12/11/17 06:59 18:59 Intake Total 1500 1200 Output Total 400 Balance 1100 1200 - Medications Medications: Current Medications Heparin Sodium (Porcine) (Heparin) 5,000 units SC Q12H [facility] Last Admin: 12/10/17 21:25 Dose: 5,000 units Sodium Chloride (Sodium Chloride 0.9%) 1,000 mls @ 150 mls/hr IV .Q6H40M [facility] Last Admin: 12/11/17 05:13 Dose: 150 mls/hr Ceftriaxone Sodium 1 gm/ (Sodium Chloride) 100 mls @ 100 mls/hr IVPB Q12H [facility]; Protocol Last Admin: 12/10/17 20:31 Dose: 100 mls/hr Morphine Sulfate (Morphine) 1 mg IVP Q4 PRN PRN Reason: Pain, moderate (4-7) Last Admin: 12/11/17 05:12 Dose: 1 mg Ondansetron HCl (Zofran Inj) 4 mg IVP Q6 PRN PRN Reason: Nausea/Vomiting Saccharomyces Boulardii (Florastor) 250 mg PO BID [facility] Last Admin: 12/10/17 17:45 Dose: 250 mg - Labs Labs: 12/11/17 07:51 12/11/17 07:51 - Constitutional Appears: Non-toxic, No Acute Distress - Eye Exam Eye Exam: EOMI, PERRL - ENT Exam ENT Exam: Mucous Membranes Moist - Respiratory Exam Respiratory Exam: Clear to Ausculation Bilateral. absent: Rales, Rhonchi, Wheezes - Cardiovascular Exam Cardiovascular Exam: RRR, +S1, +S2 - GI/Abdominal Exam GI & Abdominal Exam: Soft, Tenderness (diffuse, worst in epigastric), Hypoactive Bowel Sounds. absent: Distended, Firm, Guarding, Rigid, Organomegaly - Extremities Exam Extremities Exam: Normal Inspection. absent: Pedal Edema - Neurological Exam Neurological Exam: Alert, Awake, Oriented x3 - Psychiatric Exam Psychiatric exam: Normal Affect, Normal Mood - Skin Skin Exam: Dry, Warm Assessment and Plan - Assessment and Plan (Free Text) Assessment: Patient is a 57yo female with PMHx significant for GERD who presented with abdominal pain -Acute pancreatitis -GERD -Constipation - R/O ileus -Pyelonephritis Plan: -Start bowel regimen -Recommend plain film of abdomen to evaluate bowel pattern - R/O ileus -PPI discontinued, concern for possible drug induced pancreatitis -IgG4 pending -Liquid diet, advance as tolerated -Given unclear etiology of pancreatitis, recommend outpatient evaluation with EUS once symptoms resolve -Ongoing supportive care <Bhargav Dupont - Last Filed: 12/11/17 10:23> Objective - Vital Signs/Intake and Output Vital Signs (last 24 hours): Temp Pulse Resp BP Pulse Ox 98.3 F 101 H 20 149/79 97 12/11/17 08:18 12/11/17 08:18 12/11/17 08:18 12/11/17 08:18 12/11/17 08:18 Intake and Output: 12/11/17 12/11/17 06:59 18:59 Intake Total 1500 1200 Output Total 400 Balance 1100 1200 - Medications Medications: Current Medications Heparin Sodium (Porcine) (Heparin) 5,000 units SC Q12H [facility] Last Admin: 12/11/17 09:53 Dose: 5,000 units Sodium Chloride (Sodium Chloride 0.9%) 1,000 mls @ 150 mls/hr IV .Q6H40M [facility] Last Admin: 12/11/17 05:13 Dose: 150 mls/hr Ceftriaxone Sodium 1 gm/ (Sodium Chloride) 100 mls @ 100 mls/hr IVPB Q12H [facility]; Protocol Last Admin: 12/11/17 09:52 Dose: 100 mls/hr Morphine Sulfate (Morphine) 1 mg IVP Q4 PRN PRN Reason: Pain, moderate (4-7) Last Admin: 12/11/17 05:12 Dose: 1 mg Ondansetron HCl (Zofran Inj) 4 mg IVP Q6 PRN PRN Reason: Nausea/Vomiting Polyethylene Glycol (Miralax) 17 gm PO BID [facility] Stop: 12/15/17 18:01 Saccharomyces Boulardii (Florastor) 250 mg PO BID [facility] Last Admin: 12/11/17 09:54 Dose: 250 mg - Labs Labs: 12/11/17 07:51 12/11/17 07:51 Attending/Attestation - Attestation I have personally seen and examined this patient.: Yes I have fully participated in the care of the patient.: Yes I have reviewed all pertinent clinical information, including history, physical exam and plan: Yes Notes (Text): 12/11/17 10:20 I have seen and examined patient with GI fellow. No acute events overnight, she is seen ambulating in room. She continues to endorse mild epigastric pain, though improved. She was able to tolerate PO liquids and oatmeal without difficulty. No bowel movements over past 48 hours, but she is passing gas. Abdominal pain, acute pancreatitis - resolving GERD Constipation Pyelonephritis - Advance diet to low fat as tolerated - Continue with antibiotic therapy as per medical team - Begin bowel regimen to prevent ongoing constipation - Awaiting results of IGG4 level - Avoid PPI therapy for time being given unexplained pancreatitis. Patient would benefit from outpatient follow up including consideration of EUS for further evaluation. No further planned GI interventions, will sign off case. Please reconsult as necessary, thank you.
[2017-12-11] MEDS: Saccharomyces Boulardi 250 mg Cap PO SCH (09:54)
[2017-12-11] MEDS ORDERED: POLYETHYLENE GLYCOL 3350 17 GM/Dose PACKET PO SCH (10:15)
--- NOTE | 2017-12-11 10:34 | MRI ---
MRCP Indication: Acute appendicitis Technique: Multiplanar, multisequence MR images of the abdomen were obtained, including heavily T2 weighted MRCP images of the biliary system. Rotating maximum intensity projection images of the biliary system were generated. A total of 594 images were submitted for review. Comparison: CT abdomen and pelvis with IV contrast performed 12/09/19 Findings: Fatty infiltration of the liver. The patient is status postcholecystectomy. There is no intrahepatic biliary ductal dilatation. The common bile duct appears dilated measuring approximately 8 mm in diameter. The pancreatic duct does not appear dilated. No filling defects are seen in the common bile duct or pancreatic duct. Subtle edematous appearance of the pancreas with mild peripancreatic edema. The limited visualized noncontrast adrenal glands, kidneys, and spleen appear unremarkable. No bulky abdominal lymphadenopathy is seen. No ascites. Visualized bowel loops appear within normal limits of caliber without evidence of obstruction. Mild jejunal wall thickening may be seen in the setting of enteritis. Correlate clinically. Incidental note is made of 3.7 x 4.1 cm septated large left T2 hyperintense lesion, probable ovarian cyst. Partially imaged presumed appendix appears within normal limits of caliber. Degenerative changes of the spine. Impression: Subtle edematous changes of the pancreas and peripancreatic inflammatory changes may be seen in the setting of acute pancreatitis. Recommend correlation with amylase and lipase. Limited visualization of the presumed proximal appendix appears within normal limits of caliber. Mildly dilated common bile duct in the setting of cholecystectomy. Fatty infiltration of the liver. Mild jejunal wall thickening may be seen in the setting of enteritis. Correlate clinically. Partially imaged probable left ovarian cyst measures approximately 3.7 x 4.1 cm and appears septated. Additional findings as above. Preliminary impression was provided by [employer].
--- NOTE | 2017-12-11 13:48 | RAD ---
Date of service: 12/11/2017 HISTORY: abdominal pain COMPARISON: 12/08/2017. CT abdomen and pelvis. FINDINGS: BOWEL: Normal. No obstruction. No free air. BONES: Normal. OTHER FINDINGS: None. IMPRESSION: No significant or acute findings to account for/ related to the clinical presentation.
--- NOTE | 2017-12-11 16:54 | CP.PCM.DIS ---
Provider - Provider Date of Admission: 12/08/17 20:09 Attending physician: José Muhammad DO Time Spent in preparation of Discharge (in minutes): 45 Diagnosis - Discharge Diagnosis (1) Acute pancreatitis Status: Resolved (2) Elevated liver enzymes Status: Resolved (3) Epigastric abdominal pain Status: Resolved (4) Leukocytosis Status: Resolved (5) Lung nodule < 6cm on CT Status: Chronic Hospital Course - Lab Results Lab Results: Micro Results 12/10/17 11:09 Urine,Clean Catch Urine Culture - Final No Growth (<1,000 CFU/ML) Most Recent Lab Values WBC 14.8 K/uL (4.8-10.8) H 12/11/17 07:51 RBC 4.63 Mil/uL (3.80-5.20) 12/11/17 07:51 Hgb 13.5 g/dL (11.0-16.0) 12/11/17 07:51 Hct 40.3 % (34.0-47.0) 12/11/17 07:51 MCV 87.0 fL (81.0-99.0) 12/11/17 07:51 MCH 29.1 pg (27.0-31.0) 12/11/17 07:51 MCHC 33.5 g/dL (33.0-37.0) 12/11/17 07:51 RDW 13.1 % (11.5-14.5) 12/11/17 07:51 Plt Count 228 K/uL (130-400) 12/11/17 07:51 MPV 12.6 fL (7.2-11.7) H 12/11/17 07:51 Neut % (Auto) 72.0 % (50.0-75.0) 12/11/17 07:51 Lymph % (Auto) 18.8 % (20.0-40.0) L 12/11/17 07:51 Richardson % (Auto) 6.8 % (0.0-10.0) 12/11/17 07:51 Eos % (Auto) 1.6 % (0.0-4.0) 12/11/17 07:51 Baso % (Auto) 0.8 % (0.0-2.0) 12/11/17 07:51 Neut # (Auto) 10.7 K/uL (1.8-7.0) H 12/11/17 07:51 Lymph # (Auto) 2.8 K/uL (1.0-4.3) 12/11/17 07:51 Richardson # (Auto) 1.0 K/uL (0.0-0.8) H 12/11/17 07:51 Eos # (Auto) 0.2 K/uL (0.0-0.7) 12/11/17 07:51 Baso # (Auto) 0.1 K/uL (0.0-0.2) 12/11/17 07:51 Neutrophils % (Manual) 89 % (50-75) H 12/08/17 16:28 Band Neutrophils % 4 % (0-2) H 12/08/17 16:28 Lymphocytes % (Manual) 5 % (20-40) L 12/08/17 16:28 Monocytes % (Manual) 2 % (0-10) 12/08/17 16:28 Platelet Estimate Normal (NORMAL) 12/08/17 16:28 Large Platelets Present 12/08/17 16:28 RBC Morphology Normal 12/08/17 16:28 Sodium 140 mmol/L (132-148) 12/11/17 07:51 Potassium 3.4 mmol/L (3.6-5.2) L 12/11/17 07:51 Chloride 105 mmol/L (98-107) 12/11/17 07:51 Carbon Dioxide 23 mmol/L (22-30) 12/11/17 07:51 Anion Gap 15 (10-20) 12/11/17 07:51 BUN 5 mg/dL (7-17) L 12/11/17 07:51 Creatinine 0.4 mg/dL (0.7-1.2) L 12/11/17 07:51 Est GFR ( Amer) > 60 12/11/17 07:51 Est GFR (Non-Af Amer) > 60 12/11/17 07:51 POC Glucose (mg/dL) 141 mg/dL (65-110) H 12/11/17 11:10 Random Glucose 97 mg/dL (65-105) 12/11/17 07:51 Hemoglobin A1c 6.2 % (4.2-6.5) 12/09/17 08:20 Calcium 9.0 mg/dl (8.6-10.4) 12/11/17 07:51 Phosphorus 2.2 mg/dL (2.5-4.5) L 12/11/17 07:51 Magnesium 1.9 mg/dL (1.6-2.3) 12/11/17 07:51 Total Bilirubin 0.9 mg/dL (0.2-1.3) 12/11/17 07:51 AST 38 U/L (14-36) H D 12/11/17 07:51 ALT 87 U/L (9-52) H D 12/11/17 07:51 Alkaline Phosphatase 172 U/L (38-126) H 12/11/17 07:51 Total Protein 7.3 g/dL (6.3-8.3) 12/11/17 07:51 Albumin 3.7 g/dL (3.5-5.0) 12/11/17 07:51 Globulin 3.5 gm/dL (2.2-3.9) 12/11/17 07:51 Albumin/Globulin Ratio 1.1 (1.0-2.1) 12/11/17 07:51 Triglycerides 74 mg/dL (0-149) D 12/09/17 08:20 Cholesterol 143 mg/dL (0-199) 12/09/17 08:20 LDL Cholesterol Direct 102 mg/dL (0-129) 12/09/17 08:20 HDL Cholesterol 30 mg/dL (30-70) 12/09/17 08:20 Amylase 642 U/L (30-110) H 12/09/17 08:20 Lipase 271 U/L (23-300) 12/10/17 07:20 Urine Color Straw (YELLOW) 12/10/17 11:09 Urine Clarity Clear (Clear) 12/10/17 11:09 Urine pH 6.0 (5.0-8.0) 12/10/17 11:09 Ur Specific [place] 1.008 (1.003-1.030) 12/10/17 11:09 Urine Protein Negative mg/dL (NEGATIVE) 12/10/17 11:09 Urine Glucose (UA) Normal mg/dL (Normal) 12/10/17 11:09 Urine Ketones 2+ mg/dL (NEGATIVE) H 12/10/17 11:09 Urine Blood 1+ (NEGATIVE) H 12/10/17 11:09 Urine Nitrate Negative (NEGATIVE) 12/10/17 11:09 Urine Bilirubin Negative (NEGATIVE) 12/10/17 11:09 Urine Urobilinogen Normal mg/dL (0.2-1.0) 12/10/17 11:09 Ur Leukocyte Esterase Neg Anatoliy/uL (Negative) 12/10/17 11:09 Urine WBC (Auto) < 1 /hpf (0-5) 12/10/17 11:09 Urine RBC (Auto) < 1 /hpf (0-3) 12/10/17 11:09 Ur Squamous Epith Cells < 1 /hpf (0-5) 12/10/17 11:09 - Hospital Course Hospital Course: Patient is a 57 year old female with past medical history of cholecystitis s/p cholecystectomy in 2017 presenting with abdominal pain. CT Abdomen/Pelvis showed new findings in the pancreas suggestive of acute pancreatitis. This includes edematous change within the pancreas and peripancreatic fluid/inflammatory change. No evidence of necrotizing pancreatitis. MRCP showed subtle edematous changes of the pancreas in the setting of acute pancreatitis. Mildly dilated common bile duct in the setting of cholecystectomy. Fatty infiltration of the liver and mild jejunal wall thickening in the setting of enteritis. Probable left ovarian cyst measuring 3.7 x 4.1 cm appears septated. Abdominal xray showed no acute findings. GI (Dr. Dupont) was consulted and recommended patient to be NPO, IVF hydration, antibiotics, IGG4 level, and lipid panel. Upon discharge, patient instructed to follow up with Dr. Dupont in his office for an EUS. She was also instructed to follow up at [facility] for repeat CBC and possible CT scan for her 5mm right pulmonary nodule. According to Fleischner guidelines, pulmonary nodules <6 mm require no follow up in low-risk patient. Patient was instructed to resume diet and activities as tolerated. Patient was also told to return to the emergency room for worsening or newly concerning symptoms. Patient is medically stable for discharge. Discharge Exam - Head Exam Head Exam: ATRAUMATIC, NORMAL INSPECTION - Additional Findings Additional findings: - Constitutional Appears: Non-toxic, No Acute Distress - Eye Exam Eye Exam: EOMI, PERRL - ENT Exam ENT Exam: Mucous Membranes Moist - Respiratory Exam Respiratory Exam: Clear to Ausculation Bilateral. absent: Rales, Rhonchi, Wheezes - Cardiovascular Exam Cardiovascular Exam: RRR, +S1, +S2 - GI/Abdominal Exam GI & Abdominal Exam: Soft, Tenderness (diffuse, worst in epigastric), Hypoactive Bowel Sounds. absent: Distended, Firm, Guarding, Rigid, Organomegaly - Extremities Exam Extremities Exam: Normal Inspection. absent: Pedal Edema - Neurological Exam Neurological Exam: Alert, Awake, Oriented x3 - Psychiatric Exam Psychiatric exam: Normal Affect, Normal Mood - Skin Skin Exam: Dry, Warm Discharge Plan - Follow Up Plan Condition: GUARDED Disposition: HOME/ ROUTINE Instructions: Low Cholesterol, Saturated Fat, and Trans Fat Diet , Hypokalemia (DC), Pancreatitis (DC), Leukocytosis (DC) Additional Instructions: 1. Please follow up with Inspector Subassembly, Dr. Dupont in 1-2 weeks for Endoscopic Ultrasound (UES) in his office. 2. Please follow up with [facility] clinic within 1-2 weeks after discharge, for repeat lab work and possible CT scan for right pulmonary nodule. 3. We will contact you for pending lab results. 4. Resume diet and activities as tolerated. 5. Return to the emergency room for worsening or newly concerning symptoms. 1. Pngase en contacto con el gastroenterlogo, Dr. Dupont, en 1-2 semanas para realizar un ultrasonido endoscpico (UES) en keenan consultorio. 2. Pngase en contacto con la clnica vecina de [facility] dentro de 1 a 2 semanas despus del gertrude hospitalaria, para repetir el trabajo de laboratorio y la posible tomografa computarizada del ndulo pulmonar derecho. 3. Nos pondremos en contacto con usted para los resultados de laboratorio pendientes. 4. Reanudar dieta y actividades segn lo tolerado. 5. Regrese a la amanda de emergencias por empeoramiento o sntomas nuevos. Referrals: Bhargav Dupont MD [Staff Provider] - Alvina Do MD [Staff Provider] -
--- NOTE | 2017-12-11 17:25 | CARD ---
APPROVED REPORT Date of service: 12/08/2017 EKG Measurement Heart [id number] <Conclusion> Normal sinus rhythm Possible Left atrial enlargement Left ventricular hypertrophy Nonspecific ST abnormality Abnormal ECG
== END 2017-12-11 16:31 | disposition home or self-care (01) | DRG 282 ==
LOC: C.ER 15:35 → C.9E 20:09 → C.3T 20:47
PROVIDERS: ADMIT Hospitalist; ATTEND Hospitalist
DX: K85.90 Acute pancreatitis without necrosis or infection, unspecified (principal); N12 Tubulo-interstitial nephritis, not specified as acute or chronic; K76.0 Fatty (change of) liver, not elsewhere classified; E87.6 Hypokalemia; K21.9 Gastro-esophageal reflux disease without esophagitis; K52.9 Noninfective gastroenteritis and colitis, unspecified; K59.00 Constipation, unspecified; K83.8 Other specified diseases of biliary tract; R91.1 Solitary pulmonary nodule

== ENCOUNTER 2018-03-26 18:15 | Emergency (ER) | payer OTHER ==
[2018-03-26 18:15] VITALS: BMI 24.5
[2018-03-26 18:57] VITALS: BP 137/89; PULSE 92; RESP 18; TEMP 97.9; O2SAT 97
[2018-03-26 20:03] LABS: HCG,QUALITATIVE URINE NEGATIVE (NEGATIVE)
[2018-03-26 20:06] LABS: SQUAMOUS EPITHIAL 3 /hpf (0-5); URINE BACTERIA OCC (<OCC); URINE BILIRUBIN NEGATIVE (NEGATIVE); URINE BLOOD 1+ (NEGATIVE); URINE CLARITY Clear (Clear); URINE COLOR Amber (YELLOW); URINE GLUCOSE (UA) NORMAL (Normal); URINE LEUKOCYTE ESTERASE NEG Leu/uL (Negative); URINE PROTEIN NEGATIVE (NEGATIVE)
--- NOTE | 2018-03-26 21:36 | C.PDOC ---
History Of Present Illness 57 year old female presents to the ER with three days of dysuria associated with vaginal discomfort described as a burning sensation. She has been taking azo OTC with no relief and now reports she feels "hot all over". Denies vaginal bleeding, abdominal pain, nausea, vomiting, or diarrhea. Time Seen by Provider: 03/26/18 19:17 Chief Complaint (Nursing): Female Genitourinary History Per: Patient History/Exam Limitations: no limitations Onset/Duration Of Symptoms: Days (3) Current Symptoms Are (Timing): Still Present Quality Of Discomfort: Burning Associated Symptoms: Urinary Symptoms (Dysuria), Other (Vaginal discomfort, "Feels hot all over") Alleviating Factors: None Recent travel outside of the [place]: No Abnormal Vaginal Bleeding: No Past Medical History Reviewed: Historical Data, Nursing Documentation, Vital Signs Vital Signs: Last Vital Signs Temp 97.9 F 03/26/18 18:55 Pulse 92 H 03/26/18 18:55 Resp 18 03/26/18 18:55 BP 137/89 03/26/18 18:55 Pulse Ox 97 03/26/18 18:55 - Medical History PMH: Gall Bladder Disease Denies: Chronic Kidney Disease Surgical History: Cholecystectomy Family History: States: Unknown Family Hx - Social History Hx Tobacco Use: No Hx Alcohol Use: No Hx Substance Use: No - Immunization History Hx Tetanus Toxoid Vaccination: No Hx Influenza Vaccination: No Hx Pneumococcal Vaccination: No Review Of Systems Constitutional: Positive for: Other ("Feels hot all over") Respiratory: Negative for: Cough Gastrointestinal: Negative for: Nausea, Vomiting, Abdominal Pain, Diarrhea Genitourinary: Positive for: Dysuria, Other (Vaginal discomfort). Negative for: Vaginal Bleeding Musculoskeletal: Negative for: Back Pain Skin: Negative for: Rash Physical Exam - Physical Exam Appears: Non-toxic, No Acute Distress Skin: Normal Color, Warm, Dry, No Rash Head: Atraumatic, Normacephalic Eye(s): bilateral: Normal Inspection Oral Mucosa: Moist Throat: No Erythema, No Exudate Neck: Normal, Supple Chest: Symmetrical, No Tenderness Cardiovascular: Rhythm Regular, No Friction Rub, No Murmur Respiratory: Normal Breath Sounds, No Rales, No Rhonchi, No Wheezing Gastrointestinal/Abdominal: Soft, No Tenderness Back: No CVA Tenderness Pelvic: Normal External Exam, No Vaginal Bleeding, No Cervical Motion Tenderness, No Adnexal Tenderness, Other (Scant white/yellow discharge. Tenderness with insertion of speculum. City Planning Engineer CP Yelitza Schaffer) Extremity: Normal ROM, No Tenderness, No Swelling Neurological/Psych: Oriented x3, Normal Speech Gait: Steady ED Course And Treatment - Laboratory Results Lab Results: Urine Color Roslyn (YELLOW) 03/26/18 19:49 Urine Clarity Clear (Clear) 03/26/18 19:49 Urine pH 6.0 (5.0-8.0) 03/26/18 19:49 Ur Specific [place] 1.003 (1.003-1.030) 03/26/18 19:49 Urine Protein Negative mg/dL (NEGATIVE) 03/26/18 19:49 Urine Glucose (UA) Normal mg/dL (Normal) 03/26/18 19:49 Urine Ketones Negative mg/dL (NEGATIVE) 03/26/18 19:49 Urine Blood 1+ (NEGATIVE) H 03/26/18 19:49 Urine Nitrate Negative (NEGATIVE) 03/26/18 19:49 Urine Bilirubin Negative (NEGATIVE) 03/26/18 19:49 Urine Urobilinogen 4.0 mg/dL (0.2-1.0) H 03/26/18 19:49 Ur Leukocyte Esterase Neg Anatoliy/uL (Negative) 03/26/18 19:49 Urine WBC (Auto) 1 /hpf (0-5) 03/26/18 19:49 Urine RBC (Auto) < 1 /hpf (0-3) 03/26/18 19:49 Ur Squamous Epith Cells 3 /hpf (0-5) 03/26/18 19:49 Urine Bacteria Occ (<OCC) H 03/26/18 19:49 Urine HCG, Qual Negative (NEGATIVE) 03/26/18 19:49 Urine HCG, Qual Negative (NEGATIVE) 03/26/18 19:49 O2 Sat by Pulse Oximetry: 97 (Room air) Pulse Ox Interpretation: Normal Medical Decision Making Medical Decision Making: Toradol administered, patient started on antibiotics and discharged home with instructions to follow up with PMD or return if symptoms worsen. Disposition - Disposition Referrals: [facility] [Outside] [facility] [Outside] Disposition: HOME/ ROUTINE Disposition Time: 21:33 Condition: STABLE Additional Instructions: Follow up with the medical doctor within 1-2 days. Return if worsened. Prescriptions: Doxycycline Monohydrate 100 mg PO BID #14 tablet metroNIDAZOLE [Flagyl] 500 mg PO BID #14 tab Naproxen [Naprosyn] 500 mg PO BID #20 tab Instructions: Bacterial Vaginosis (DC) Forms: [employer] (Syriac) Print Language: TURKISH - Clinical Impression Clinical Impression: Bacterial vaginosis - PA / CHEF BROILER OR FRY / Resident Statement MD/DO has reviewed & agrees with the documentation as recorded. - Scribe Statement The provider has reviewed the documentation as recorded by the Scribhailey Blake All medical record entries made by the Germania were at my direction and personally dictated by me. I have reviewed the chart and agree that the record accurately reflects my personal performance of the history, physical exam, medic al decision making, and the department course for this patient. I have also personally directed, reviewed, and agree with the discharge instructions and disposition.
== END 2018-03-26 21:45 | disposition home or self-care (01) ==
LOC: C.ER 18:15
DX: N76.0 Acute vaginitis (principal)
CPT/HCPCS: 81001; 84703; 87086; 96372; 99283; J1885

== ENCOUNTER 2018-03-30 18:04 | Emergency (ER) | payer OTHER ==
[2018-03-30 18:14] VITALS: BMI 22.6
[2018-03-30 18:15] VITALS: RESP 18
--- NOTE | 2018-03-30 18:48 | C.PDOC ---
History Of Present Illness 57 year old female presents to the ED for evaluation of vaginal pain and dysuria which began around one week ago. Patient was evaluated in the ED on 03/26 for similar complaints and was treated with metronedazone. At the time, her urinalysis results were negative for a urinary tract infection and her urine test was also negative. Patient returns to the ED because her symptoms have persisted. She reports internal pain, right below her urethra. She admits to experiencing dysuria occasionally, but states the sensation has never been this severe. She denies fever, chills, cough, runny nose, nausea, vomiting. Time Seen by Provider: 03/30/18 18:18 Chief Complaint (Nursing): Female Genitourinary History Per: Patient History/Exam Limitations: no limitations Onset/Duration Of Symptoms: Days, Persistent Current Symptoms Are (Timing): Still Present Quality Of Discomfort: "Pain" Associated Symptoms: Urinary Symptoms (dysuria ). denies: Fever, Chills, Nausea, Vomiting Additional History Per: Patient Abnormal Vaginal Bleeding: No Past Medical History Reviewed: Historical Data, Nursing Documentation, Vital Signs Vital Signs: Last Vital Signs Temp 98.8 F 03/30/18 18:12 Pulse 99 H 03/30/18 18:12 Resp 18 03/30/18 18:12 BP 137/85 03/30/18 18:12 Pulse Ox 98 03/30/18 18:12 - Medical History PMH: Gall Bladder Disease Denies: Chronic Kidney Disease Surgical History: Cholecystectomy Family History: States: Unknown Family Hx - Social History Hx Tobacco Use: No Hx Alcohol Use: No Hx Substance Use: No - Immunization History Hx Tetanus Toxoid Vaccination: No Hx Influenza Vaccination: No Hx Pneumococcal Vaccination: No Review Of Systems Constitutional: Negative for: Fever, Chills ENT: Negative for: Nose Discharge Respiratory: Negative for: Cough Gastrointestinal: Negative for: Nausea, Vomiting Genitourinary: Positive for: Dysuria, Other (vaginal pain ) Physical Exam - Physical Exam Appears: Non-toxic, No Acute Distress, Other (tearful ) Skin: Normal Color, Warm, Dry Oral Mucosa: Moist Chest: Symmetrical, No Deformity, No Tenderness Cardiovascular: Rhythm Regular, No Murmur Respiratory: Normal Breath Sounds, No Rales, No Rhonchi, No Wheezing Gastrointestinal/Abdominal: Soft, No Tenderness, No Guarding, No Rebound Pelvic: No Normal External Exam (lesions noted to the medial aspects of right an d left sides of labia majora. area is nontender with no discharge or fluctuance ), Other (internal exam: firm, tender protrusion below the urethra, possibly consistent with polyp or prolapse ) Extremity: Normal ROM, Capillary Refill (less than 2 seconds ) Neurological/Psych: Oriented x3, Normal Speech, Normal Cognition ED Course And Treatment O2 Sat by Pulse Oximetry: 98 Medical Decision Making Medical Decision Making: Impression: 57 year old female with vaginal pain and dysuria Plan: * urinalysis * reassess and disposition Progress: Urinalysis ordered and reviewed. Case discussed with Dr. West (BLANK DRILLER bakery demonstrator), who states she will evaluate the patient in the ED. Pending SEWAGE DISPOSAL WORKER evaluation. Disposition Discussed With : Lorene West - Disposition Disposition Time: 19:03 Condition: STABLE Forms: Gen Discharge Inst Citizen Of [place], [facility] (Citizen [place]) - POA Present On Arrival: None - Clinical Impression Clinical Impression: Vaginal pain - Scribe Statement The provider has reviewed the documentation as recorded by the Scribe (Laurence English) Provider Attestation: All medical record entries made by the Scribe were at my direction and personally dictated by me. I have reviewed the chart and agree that the record accurately reflects my personal performance of the history, physical exam, medical decision making, and the department course for this patient. I have also personally directed, reviewed, and agree with the discharge instructions and disposition. Physician Patient Turnover Patient Signed Over To: Reginaldo Huber DO Handoff Comments: pending eval by SEWAGE DISPOSAL WORKER and final dispo.
[2018-03-30 19:08] LABS: SQUAMOUS EPITHIAL 5 /hpf (0-5); URINE BACTERIA RARE (<OCC); URINE BILIRUBIN NEGATIVE (NEGATIVE); URINE BLOOD NEGATIVE (NEGATIVE); URINE CLARITY Clear (Clear); URINE COLOR Straw (YELLOW); URINE GLUCOSE (UA) NORMAL (Normal); URINE LEUKOCYTE ESTERASE NEG Leu/uL (Negative); URINE PROTEIN NEGATIVE (NEGATIVE); URINE UROBILINOGEN NORMAL mg/dL (0.2-1.0)
[2018-03-30] MEDS ORDERED: cefTRIAXone (Rocephin) 250 mg Inj IM STA (19:41)
[2018-03-30] MEDS ORDERED: CEFTRIAXONE IM ONE (19:45)
[2018-03-30] MEDS ORDERED: LIDOCAINE HYDROCHLORIDE 1% IM ONE (19:45)
[2018-03-30 20:28] VITALS: BP 149/84; PULSE 88; TEMP 97.9; O2SAT 97
[2018-03-30] MEDS ORDERED: Miconazole 100 MG Vaginal Supp VG SCH (22:00)
== END 2018-03-30 20:16 | disposition home or self-care (01) ==
LOC: C.ER 18:04
DX: R10.2 Pelvic and perineal pain (principal)
CPT/HCPCS: 81001; 96372; 99284; J0696

== ENCOUNTER 2018-06-10 06:20 | Observation (INO) | payer OTHER ==
[2018-06-10 06:21] VITALS: BMI 24.5
[2018-06-10] MEDS ORDERED: Sodium Chloride 0.9% 1,000 ML IV ONE ×2 (07:05→09:06)
[2018-06-10] MEDS ORDERED: Sodium Chloride 0.9% 1,000 ML ONE ×2 (07:13→09:10)
[2018-06-10 07:24] LABS: BASO % 0.2 % (0.0-2.0); HEMOGLOBIN 14.8 g/dL (11.0-16.0); LYMPH % 5.5 % (20.0-40.0); MEAN CELL VOLUME 87.1 fL (81.0-99.0); MEAN CORPUSCULAR HEMOGLOBIN 29.3 pg (27.0-31.0); MEAN CORPUSCULAR HGB CONC 33.6 g/dL (33.0-37.0); MEAN PLATELET VOLUME 10.9 fL (7.2-11.7); MONO # 0.8 K/uL (0.0-0.8); MONO % 4.8 % (0.0-10.0); NEUT # 15.6 K/uL (1.8-7.0); NEUT % 89.5 % (50.0-75.0); PLATELET COUNT 250 K/uL (130-400); RBC 5.07 Mil/uL (3.80-5.20); RED CELL DISTRIBUTION WIDTH 13.8 % (11.5-14.5)
[2018-06-10 07:25] LABS: SQUAMOUS EPITHIAL 39 /hpf (0-5); URINE BACTERIA RARE (<OCC); URINE BILIRUBIN NEGATIVE (NEGATIVE); URINE BLOOD 2+ (NEGATIVE); URINE CLARITY Hazy (Clear); URINE COLOR Amber (YELLOW); URINE GLUCOSE (UA) NORMAL (Normal); URINE LEUKOCYTE ESTERASE NEG Leu/uL (Negative); URINE PROTEIN NEGATIVE (NEGATIVE); URINE UROBILINOGEN NORMAL mg/dL (0.2-1.0)
[2018-06-10 07:26] LABS: WHITE BLOOD COUNT 17.5 K/uL (4.8-10.8)
[2018-06-10 07:29] LABS: ALB/GLOB RATIO 1.1 (1.0-2.1); ALBUMIN 4.4 g/dL (3.5-5.0); ALT/SGPT 18 U/L (9-52); AST/SGOT 38 U/L (14-36); BLOOD UREA NITROGEN 9 mg/dL (7-17); CALCIUM 9.9 mg/dl (8.6-10.4); GFR NON-AFRICAN AMERICAN > 60; LIPASE 61 U/L (23-300)
--- NOTE | 2018-06-10 07:40 | C.PDOC ---
History Of Present Illness 58 y/o female c/o multiple episodes of watery brownish black stool every 15 min x last 2 days with fever and nausea and mild lower abdominal pain. no urinary symptoms., . Time Seen by Provider: 06/10/18 07:04 Chief Complaint (Nursing): Abdominal Pain History Per: Patient History/Exam Limitations: no limitations Onset/Duration Of Symptoms: Days (2) Current Symptoms Are (Timing): Still Present Location Of Pain/Discomfort: RLQ, LLQ, Suprapubic Quality Of Discomfort: "Pain" Associated Symptoms: Nausea, Diarrhea, Loss Of Appetite Last Bowel Movement: Today Past Medical History Reviewed: Historical Data, Nursing Documentation, Vital Signs Vital Signs: Last Vital Signs Temp 100.2 F H 06/10/18 06:37 Pulse 123 H 06/10/18 06:37 Resp 18 06/10/18 06:37 BP 131/82 06/10/18 06:37 Pulse Ox 97 06/10/18 06:37 - Medical History PMH: Gall Bladder Disease Denies: Chronic Kidney Disease Other PMH: pancreatitis Surgical History: Cholecystectomy Family History: States: Unknown Family Hx - Social History Hx Tobacco Use: No Hx Alcohol Use: No Hx Substance Use: No - Immunization History Hx Tetanus Toxoid Vaccination: No Hx Influenza Vaccination: No Hx Pneumococcal Vaccination: No Review Of Systems Constitutional: Positive for: Fever, Chills, Malaise Respiratory: Negative for: Cough Gastrointestinal: Positive for: Nausea, Abdominal Pain, Diarrhea. Negative for: Vomiting Genitourinary: Negative for: Dysuria Skin: Negative for: Rash Neurological: Negative for: Weakness, Numbness Physical Exam - Physical Exam Appears: Non-toxic, No Acute Distress Skin: Warm, Dry Head: Atraumatic, Normacephalic Oral Mucosa: Dry Neck: Supple Cardiovascular: No Murmur, Other (tachycardic) Respiratory: No Decreased Breath Sounds, No Wheezing Gastrointestinal/Abdominal: Bowel Sounds, Soft, Tenderness (mild in left and right lower quadrants and suprapubic area. ) Neurological/Psych: Oriented x3, Normal Speech, Normal Cognition ED Course And Treatment - Laboratory Results Result Diagrams: 06/10/18 07:12 06/10/18 07:12 Lab Results: Total Bilirubin 1.0 mg/dL (0.2-1.3) 06/10/18 07:12 AST 38 U/L (14-36) H 06/10/18 07:12 ALT 18 U/L (9-52) 06/10/18 07:12 Alkaline Phosphatase 166 U/L (38-126) H 06/10/18 07:12 Total Protein 8.4 g/dL (6.3-8.3) H 06/10/18 07:12 Albumin 4.4 g/dL (3.5-5.0) 06/10/18 07:12 Globulin 4.0 gm/dL (2.2-3.9) H 06/10/18 07:12 Albumin/Globulin Ratio 1.1 (1.0-2.1) 06/10/18 07:12 Lipase 61 U/L (23-300) 06/10/18 07:12 Urine Color Roslyn (YELLOW) 06/10/18 07:12 Urine Clarity Hazy (Clear) 06/10/18 07:12 Urine pH 5.0 (5.0-8.0) 06/10/18 07:12 Ur Specific [place] 1.018 (1.003-1.030) 06/10/18 07:12 Urine Protein Negative mg/dL (NEGATIVE) 06/10/18 07:12 Urine Glucose (UA) Normal mg/dL (Normal) 06/10/18 07:12 Urine Ketones Trace mg/dL (NEGATIVE) 06/10/18 07:12 Urine Blood 2+ (NEGATIVE) H 06/10/18 07:12 Urine Nitrate Negative (NEGATIVE) 06/10/18 07:12 Urine Bilirubin Negative (NEGATIVE) 06/10/18 07:12 Urine Urobilinogen Normal mg/dL (0.2-1.0) 06/10/18 07:12 Ur Leukocyte Esterase Neg Anatoliy/uL (Negative) 06/10/18 07:12 Urine WBC (Auto) 3 /hpf (0-5) 06/10/18 07:12 Urine RBC (Auto) 4 /hpf (0-3) H 06/10/18 07:12 Ur Squamous Epith Cells 39 /hpf (0-5) H 06/10/18 07:12 Urine Bacteria Rare (<OCC) 06/10/18 07:12 ECG Rhythm: Sinus Tachycardia Interpretation Of ECG: sinus tachycardia, no st-t changes O2 Sat by Pulse Oximetry: 97 Medical Decision Making Medical Decision Making: fever and diarrhea with lower ab pain- labs, iv fluids, ct scan, zofra. Disposition Discussed With Dr.: Issac English Doctor Will See Patient In The: Hospital - Disposition Disposition: HOSPITALIZED Disposition Time: 09:43 Forms: [employer] (Z[place]ian) - Clinical Impression Clinical Impression: Colitis, Bandemia
--- NOTE | 2018-06-10 08:45 | CT ---
Date of service: 06/10/2018 PROCEDURE: CT Abdomen and Pelvis without intravenous contrast HISTORY: Diarrhea and bloating COMPARISON: 12/08/2017. TECHNIQUE: CT scan of the abdomen and pelvis was performed without administration of intravenous contrast. Oral contrast was not administered. Coronal and sagittal reformatted images were obtained. Radiation dose: Total exam DLP = 355.54 mGy-cm. This CT exam was performed using one or more of the following dose reduction techniques: Automated exposure control, adjustment of the mA and/or kV according to patient size, and/or use of iterative reconstruction technique. FINDINGS: LOWER THORAX: Stable 3 mm nodule in the right middle lobe. The visualized lungs are clear. LIVER: Fatty liver. No gross lesion or ductal dilatation. GALLBLADDER AND BILE DUCTS: Surgically absent. PANCREAS: Normal in size. No gross lesion or ductal dilatation. SPLEEN: Normal in size. ADRENALS: Normal in size. No discrete nodule. KIDNEYS AND URETERS: Both kidneys are normal in size. No hydronephrosis or nephrolithiasis. VASCULATURE: Normal in caliber. No aortic aneurysm. There are early aortic atherosclerotic calcifications present. BOWEL: Evaluation of the bowel is limited in the absence of oral contrast. There are fluid-filled mildly dilated small bowel loops with mild mural thickening. There is moderate amount of stool in the ascending colon. There is fluid in the transverse and left hemicolon with mild mural thickening. APPENDIX: Normal appendix. PERITONEUM: No free fluid. No free air. LYMPH NODES: No enlarged lymph nodes. BLADDER: Well distended and normal in appearance. REPRODUCTIVE: The uterus is normal in size. Small myometrial calcifications most compatible with small calcified fibroids. There is a stable 4.3 x 3.1 cm left adnexal presumable ovarian simple cyst. BONES: No acute fracture. Within normal limits for the patient's age. OTHER FINDINGS: None. IMPRESSION: 1. Fluid in the small bowels and left hemicolon with mild mural thickening likely represents acute nonspecific infectious/inflammatory enterocolitis in this clinical setting. No evidence for bowel obstruction. 2. Fatty liver. 3. Fibroid uterus. 4. Stable 4.3 x 3.1 cm left adnexal cyst.
[2018-06-10 08:46] LABS: BANDS 12 % (0-2); LYMPHOCYTE 6 % (20-40); MONOCYTE 7 % (0-10); NEUTROPHIL 75 % (50-75); PLATELET ESTIMATE NORMAL (NORMAL); TOTAL CELLS COUNTED 100
[2018-06-10 08:48] LABS: ANISOCYTOSIS SLIGHT
[2018-06-10 08:49] LABS: LARGE PLATELETS PRESENT
[2018-06-10 08:50] LABS: GIANT PLATELETS PRESENT
[2018-06-10] MEDS ORDERED: Piperacillin/Tazobact 3.375 gm 100 ML IVPB ONE (09:10)
[2018-06-10] MEDS: Piperacillin/Tazobact 3.375 GM in Sodium Chloride 100 ML IVPB SCH ×2 (09:11→16:16)
[2018-06-10 09:31] LABS: VENOUS BLOOD GAS BASE EXCESS -2.8 mmol/L (0.0-2.0); VENOUS BLOOD GAS PCO2 37 mmHg (40-60); VENOUS BLOOD GAS PO2 62 mm/Hg (30-55); VENOUS BLOOD PH 7.38 (7.32-7.43)
[2018-06-10] MEDS: Sodium Chloride 0.9% 1,000 ML IV SCH ×3 (10:29→21:35)
[2018-06-10] MEDS ORDERED: metroNIDAZOLE IV 500 mg/100 ml 500 MG/100 ML BAG ONE (10:35)
--- NOTE | 2018-06-10 10:35 | CP.PCM.HP ---
History of Present Illness - History of Present Illness History of Present Illness: CC: Abdominal pain and diarrhea ED language translating system not found during the encounter. ED staff, Ramesh Kayleen was able to provide assistance with translation from south su[place]ese HPI: Patient is a 58 year old female with past medical history cholecystitis, pancreatitis, lung nodule (<6cm), who presents to the ED with complaints of epigastric/cramping diffuse abdominal discomfort that started monday night that intensified by Monday morning. Patient admits to associated symptoms of water diarrhea [id number] since yesterday morning. Patient states that she took OTC Motrin 2 tablets yesterday for abdominal pain and subjective fever as well as chamomile honey tea, which did not provide significant relief for her abdominal pain. Patient admits to associated symptoms of muscle aches, subjective fever, decrease PO intake and melena. Patient denies any symptoms of chills, nausea, vomiting, hematochezia, hematuria, urinary symptoms. 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 Works with [employer]. Denies current or former use tobacco, ETOH and illicit drugs Present on Admission - Present on Admission Any Indicators Present on Admission: No Review of Systems - Constitutional Constitutional: Fever. absent: Chills, Headache, Increased Appetite - Cardiovascular Cardiovascular: absent: Chest Pain, Dyspnea, Dyspnea on Exertion, Edema, Orthopnea, Palpitations - Respiratory Respiratory: absent: Cough, Dyspnea, Dyspnea on Exertion - Gastrointestinal Gastrointestinal: Abdominal Pain, Diarrhea, Loose Stools. absent: Belching, Bloating, Excessive Flatus, Hematemesis, Hematochezia, Nausea, Vomiting Additional comments: Epigastric/Diffuse abdominal pain - Genitourinary Genitourinary: absent: Dysuria, Flank Pain, Hematuria, Urinary Frequency - Integumentary Integumentary: absent: Dry Skin, Jaundice - Neurological Neurological: absent: Dizziness, Weakness - Endocrine Endocrine: absent: Fatigue, Palpitations Past Patient History - Infectious Disease Hx of Infectious Diseases: None - Past Medical History & Family History Past Medical History?: Yes - Past Social History Smoking Status: Never Smoked - CARDIAC Hx Cardiac Disorders: No - PULMONARY Hx Respiratory Disorders: No - NEUROLOGICAL Hx Neurological Disorder: No - HEENT Hx HEENT Problems: No - RENAL Hx Chronic Kidney Disease: No - ENDOCRINE/METABOLIC Hx Endocrine Disorders: No - HEMATOLOGICAL/ONCOLOGICAL Hx Blood Disorders: No - INTEGUMENTARY Hx Dermatological Problems: No - MUSCULOSKELETAL/RHEUMATOLOGICAL Hx Musculoskeletal Disorders: No Hx Falls: No - GASTROINTESTINAL Hx Gall Bladder Disease: Yes - GENITOURINARY/GYNECOLOGICAL Hx Genitourinary Disorders: No - PSYCHIATRIC Hx Substance Use: No - SURGICAL HISTORY Hx Cholecystectomy: Yes - ANESTHESIA Hx Anesthesia: Yes Hx Anesthesia Reactions: No Hx Malignant Hyperthermia: No Meds Allergies/Adverse Reactions: Allergies Allergy/AdvReac Type Severity Reaction Status Date / Time Iodinated Contrast- Oral and Allergy RASH Verified 06/10/18 06:36 IV Dye Physical Exam - Constitutional Appears: No Acute Distress - Head Exam Head Exam: ATRAUMATIC, NORMAL INSPECTION - Eye Exam Eye Exam: EOMI, Normal appearance, PERRL Pupil Exam: PERRL - ENT Exam ENT Exam: Mucous Membranes Moist - Respiratory Exam Respiratory Exam: Clear to Auscultation Bilateral, NORMAL BREATHING PATTERN. absent: Prolonged Expiratory Phase, Rales, Rhonchi, Wheezes, Respiratory Distress - Cardiovascular Exam Cardiovascular Exam: REGULAR RHYTHM, +S1, +S2 - GI/Abdominal Exam GI & Abdominal Exam: Normal Bowel Sounds, Soft. absent: Distended, Firm, Guarding, Tenderness - Extremities Exam Extremities exam: Positive for: normal inspection. Negative for: calf tenderness, pedal edema - Back Exam Back exam: NORMAL INSPECTION. absent: CVA tenderness (L), CVA tenderness (R) - Neurological Exam Neurological exam: Alert, Oriented x3 - Psychiatric Exam Psychiatric exam: Normal Affect - Skin Skin Exam: Normal Color Results - Vital Signs Recent Vital Signs: Last Vital Signs Temp 99.8 F H 06/10/18 09:14 Pulse 113 H 06/10/18 09:14 Resp 20 06/10/18 09:14 BP 100/57 L 06/10/18 09:14 Pulse Ox 97 06/10/18 09:43 - Labs Result Diagrams: 06/10/18 07:12 06/10/18 07:12 Labs: Laboratory Results - last 24 hr 06/10/18 06/10/18 06/10/18 07:12 07:12 07:12 WBC 17.5 H RBC 5.07 Hgb 14.8 Hct 44.1 MCV 87.1 MCH 29.3 MCHC 33.6 RDW 13.8 Plt Count 250 MPV 10.9 Neut % (Auto) 89.5 H Lymph % (Auto) 5.5 L [place] % (Auto) 4.8 Eos % (Auto) 0.0 Baso % (Auto) 0.2 Neut # (Auto) 15.6 H Lymph # (Auto) 1.0 [place] # (Auto) 0.8 Eos # (Auto) 0.0 Baso # (Auto) 0.0 Neutrophils % (Manual) 75 Band Neutrophils % 12 H* Lymphocytes % (Manual) 6 L Monocytes % (Manual) 7 Platelet Estimate Normal Large Platelets Present Giant Platelets Present Anisocytosis (manual) Slight pO2 VBG pH VBG pCO2 VBG HCO3 VBG Total CO2 VBG O2 Sat (Calc) VBG Base Excess VBG Potassium Glucose Lactate Sodium 136 Potassium 3.9 Chloride 105 Carbon Dioxide 22 Anion Gap 13 BUN 9 Creatinine 0.6 L Est GFR ( Amer) > 60 Est GFR (Non-Af Amer) > 60 Random Glucose 140 H D Calcium 9.9 Total Bilirubin 1.0 AST 38 H ALT 18 Alkaline Phosphatase 166 H Total Protein 8.4 H Albumin 4.4 Globulin 4.0 H Albumin/Globulin Ratio 1.1 Lipase 61 Venous Blood Potassium Urine Color [place] Urine Clarity Hazy Urine pH 5.0 Ur Specific [place] 1.018 Urine Protein Negative Urine Glucose (UA) Normal Urine Ketones Trace Urine Blood 2+ H Urine Nitrate Negative Urine Bilirubin Negative Urine Urobilinogen Normal Ur Leukocyte Esterase Neg Urine WBC (Auto) 3 Urine RBC (Auto) 4 H Ur Squamous Epith Cells 39 H Urine Bacteria Rare Stool Occult Blood 06/10/18 06/10/18 07:44 09:26 WBC RBC Hgb Hct MCV MCH MCHC RDW Plt Count MPV Neut % (Auto) Lymph % (Auto) [place] % (Auto) Eos % (Auto) Baso % (Auto) Neut # (Auto) Lymph # (Auto) [place] # (Auto) Eos # (Auto) Baso # (Auto) Neutrophils % (Manual) Band Neutrophils % Lymphocytes % (Manual) Monocytes % (Manual) Platelet Estimate Large Platelets Giant Platelets Anisocytosis (manual) pO2 62 H VBG pH 7.38 VBG pCO2 37 L VBG HCO3 22.6 VBG Total CO2 23.0 VBG O2 Sat (Calc) 95.1 H VBG Base Excess -2.8 L VBG Potassium 3.3 L Glucose 112 H Lactate 0.8 Sodium 137.0 Potassium Chloride 107.0 Carbon Dioxide Anion Gap BUN Creatinine Est GFR ( Amer) Est GFR (Non-Af Amer) Random Glucose Calcium Total Bilirubin AST ALT Alkaline Phosphatase Total Protein Albumin Globulin Albumin/Globulin Ratio Lipase Venous Blood Potassium 3.3 L Urine Color Urine Clarity Urine pH Ur Specific [place] Urine Protein Urine Glucose (UA) Urine Ketones Urine Blood Urine Nitrate Urine Bilirubin Urine Urobilinogen Ur Leukocyte Esterase Urine WBC (Auto) Urine RBC (Auto) Ur Squamous Epith Cells Urine Bacteria Stool Occult Blood Negative Assessment & Plan (1) Sepsis Assessment and Plan: On admission * HR: 123 * Temp: 100.2. Tmax: 102.8 * Source of infection: Colitis * Lactate: 0.8 * Bandemia: 12 * Procalcitonin: 0.25 Labs/Imaging: (06/10/18)Abdomen/Pelvis CT without contrast (due to allergy): Fluid in the small bowels and left hemicolon with mild mural thickening likely represents acute nonspecific infectious/inflammatory enterocolitis in this clinical setting. No evidence for bowel obstruction Chest X-ray (06/10/2018): No active pulmonary disease. UA: Negative but not a clean catch F/u BC, UC and Influenza Management: * 2L of bolus and Zosyn 3.375IV once given in the ED * Maintenance fluid NS @125cc/hr * Cipro 400mg IV Q12H * Flagyl 500mg IV Q8H * Florastor 250mg PO BID * Tylenol 650mg PO Q6H PRN of fever Status: Acute (2) Colitis Assessment and Plan: Labs/Imaging: (06/10/18)Abdomen/Pelvis CT without contrast (due to allergy): Fluid in the small bowels and left hemicolon with mild mural thickening likely represents acute nonspecific infectious/inflammatory enterocolitis in this clinical setting. No evidence for bowel obstruction Lipase: 61 (due to epigastric complaint) F/u stool culture, Ova & parasite X3, C-diff and stool leukocyte Management: - Currently NPO, will reassess PO intake at 5pm and decide to start liquid diet - Maintenance fluid NS @125cc/hr - Cipro 400mg IV Q12H - Flagyl 500mg IV Q8H - Zofran 4mg IV Q6H prn for nausea - Florastor 250mg PO BID Status: Acute (3) Melena Assessment and Plan: H/H: 14.8/44.1 Stool Occult: Negative Status: Acute (4) Prophylactic measure Assessment and Plan: GI: Not indicated DVT: score of 2, SCDs and lovenox 40mg SC daily All plans and management discussed with Dr. Issac English Status: Acute
[2018-06-10] MEDS: metroNIDAZOLE IV 500 mg/100 ml 500 MG/100 ML BAG IVPB SCH ×2 (10:37→18:20)
--- NOTE | 2018-06-10 10:40 | RAD ---
Date of service: 06/10/2018 HISTORY: Pulmonary venous congestion COMPARISON: No prior. TECHNIQUE: Chest PA and lateral FINDINGS: LINES AND TUBES: None. LUNG AND PLEURA: The lungs are well inflated and clear. No pleural effusion or pneumothorax. HEART AND MEDIASTINUM: The heart is not enlarged. There are early aortic atherosclerotic calcifications present. The hilar and mediastinal contours are within normal limits. SKELETAL STRUCTURES: The bony structures are within normal limits for the patient's age. VISUALIZED UPPER ABDOMEN: Normal. OTHER FINDINGS: None. IMPRESSION: No active pulmonary disease.
[2018-06-10 11:17] VITALS: RESP 20
[2018-06-10] MEDS: Ciprofloxacin 200mg/100ml D5W 100 ML IVPB SCH ×2 (12:00→23:57)
[2018-06-10] MEDS: Saccharomyces Boulardi 250 mg Cap PO SCH (17:03)
[2018-06-11] MEDS: metroNIDAZOLE IV 500 mg/100 ml 500 MG/100 ML BAG IVPB SCH ×3 (02:19→17:32)
[2018-06-11] MEDS: Sodium Chloride 0.9% 1,000 ML IV SCH ×3 (04:37→13:30)
--- NOTE | 2018-06-11 08:01 | CP.PCM.PN ---
<José Kilgore - Last Filed: 06/11/18 15:39> Subjective - Date & Time of Evaluation Date of Evaluation: 06/11/18 Time of Evaluation: 08:01 - Subjective Subjective: PGY-1 Medicine Progress Note for Dr. Dean Patient seen and examined at bedside this AM, resting comfortably and in no acute distress. No overnight events reported. Patient denies abdominal pain or nausea/vomiting but does endorse some watery diarrhea this AM. No other acute somatic complaints. No fevers/chills, headaches, dizziness, chest pain, palpitations, sob, cough. 12 pt ROS reviewed and otherwise negative. Objective - Vital Signs/Intake and Output Vital Signs (last 24 hours): Temp Pulse Resp BP Pulse Ox 98.5 F 97 H 20 97/58 L 96 06/11/18 05:36 06/11/18 00:00 06/10/18 23:00 06/10/18 23:00 06/10/18 23:00 Intake and Output: 06/11/18 06/11/18 06:59 18:59 Intake Total 2019 Balance 2020 - Medications Medications: Current Medications Acetaminophen (Tylenol 325mg Tab) 650 mg PO Q6 [facility] Stop: 06/11/18 18:00 Last Admin: 06/11/18 05:36 Dose: Not Given Enoxaparin Sodium (Lovenox) 40 mg SC DAILY [facility] Sodium Chloride (Sodium Chloride 0.9%) 1,000 mls @ 110 mls/hr IV .Q9H6M [facility] Last Admin: 06/11/18 04:37 Dose: Not Given Ciprofloxacin (Cipro 200mg/100ml D5w) 100 mls @ 67 mls/hr IVPB Q12H [facility]; Protocol Last Admin: 06/10/18 23:57 Dose: 67 mls/hr Metronidazole (Flagyl) 500 mg in 100 mls @ 100 mls/hr IVPB Q8H [facility]; Protocol Last Admin: 06/11/18 02:19 Dose: 100 mls/hr Ondansetron HCl (Zofran Inj) 4 mg IVP Q6H PRN PRN Reason: Nausea/Vomiting Pneumococcal Polyvalent Vaccine (Pneumovax 23 Vaccine) 0.5 ml IM .ONCE ONE Stop: 06/12/18 10:01 Saccharomyces Boulardii (Florastor) 250 mg PO BID [facility] Last Admin: 06/10/18 17:03 Dose: 250 mg - Labs Labs: 06/10/18 07:12 06/10/18 07:12 - Constitutional Appears: Non-toxic, No Acute Distress - Head Exam Head Exam: ATRAUMATIC, NORMAL INSPECTION, NORMOCEPHALIC - Eye Exam Eye Exam: EOMI, Normal appearance, PERRL Pupil Exam: NORMAL ACCOMODATION - ENT Exam ENT Exam: Mucous Membranes Moist, Normal Exam - Neck Exam Neck Exam: Full ROM, Normal Inspection - Respiratory Exam Respiratory Exam: Clear to Ausculation Bilateral, NORMAL BREATHING PATTERN. ab sent: Accessory Muscle Use, Rales, Rhonchi, Wheezes, Respiratory Distress, Stridor - Cardiovascular Exam Cardiovascular Exam: REGULAR RHYTHM, +S1, +S2 - GI/Abdominal Exam GI & Abdominal Exam: Soft, Normal Bowel Sounds. absent: Distended, Firm, Guarding, Rigid, Tenderness, Rebound - Extremities Exam Extremities Exam: Full ROM, Normal Capillary Refill, Normal Inspection. absent: Calf Tenderness, Pedal Edema - Back Exam Back Exam: NORMAL INSPECTION - Neurological Exam Neurological Exam: Alert, Awake, Normal Gait, Oriented x3 - Skin Skin Exam: Dry, Intact, Normal Color, Warm Assessment and Plan - Assessment and Plan (Free Text) Assessment: 58 year old female with pmhx of cholecystitis, pancreatitis, lung nodule (<6cm), who presents to the ED with complaints of epigastric/cramping d iffuse abdominal discomfort. Plan: Colitis -Lipase 61 on admission -stool leukocytes positive -c diff negative, ova and parasite x 2 negative -blood culture negative x 2 after 24 hrs -Abdomen/Pelvis CT without contrast (06/10): Fluid in the small bowels and left hemicolon with mild mural thickening likely represents acute nonspecific infectious/inflammatory enterocolitis in this clinical setting. No evidence for bowel obstruction. -Cipro 400mg IV Q12H -Flagyl 500mg IV Q8H -Zofran 4mg IV Q6H prn for nausea -Florastor 250mg PO BID Melena, resolved -no further melena reported -Hb/Hct wnl -stool occult Negative PPx, Diet, Disposition -DVT ppx: scds, lovenox 40 mg SC daily -Diet: advance to full liquid, continue to advance as tolerated Case discussed with Dr. Jermaine Kilgore , PGY-1 <[email or web address] - Last Filed: 06/11/18 15:52> Objective - Vital Signs/Intake and Output Vital Signs (last 24 hours): Temp Pulse Resp BP Pulse Ox 98.4 F 93 H 20 120/76 97 06/11/18 15:00 06/11/18 15:00 06/11/18 15:00 06/11/18 15:00 06/11/18 15:00 Intake and Output: 06/11/18 06/11/18 06:59 18:59 Intake Total 2019 1305 Balance 2019 1305 - Medications Medications: Current Medications Acetaminophen (Tylenol 325mg Tab) 650 mg PO Q6 [facility] Stop: 06/11/18 18:00 Last Admin: 06/11/18 12:15 Dose: Not Given Enoxaparin Sodium (Lovenox) 40 mg SC DAILY [facility] Last Admin: 06/11/18 10:35 Dose: 40 mg Ciprofloxacin (Cipro 200mg/100ml D5w) 100 mls @ 67 mls/hr IVPB Q12H [facility]; Protocol Last Admin: 06/11/18 11:40 Dose: 67 mls/hr Metronidazole (Flagyl) 500 mg in 100 mls @ 100 mls/hr IVPB Q8H [facility]; Protocol Last Admin: 06/11/18 10:35 Dose: 100 mls/hr Ondansetron HCl (Zofran Inj) 4 mg IVP Q6H PRN PRN Reason: Nausea/Vomiting Pneumococcal Polyvalent Vaccine (Pneumovax 23 Vaccine) 0.5 ml IM .ONCE ONE Stop: 06/12/18 10:01 Saccharomyces Boulardii (Florastor) 250 mg PO BID [facility] Last Admin: 06/11/18 10:35 Dose: 250 mg - Labs Labs: 06/11/18 07:44 06/11/18 07:44 Attending/Attestation - Attestation I have personally seen and examined this patient.: Yes I have fully participated in the care of the patient.: Yes I have reviewed all pertinent clinical information, including history, physical exam and plan: Yes Notes (Text): seen and examined. her abdominal pain is better,loos e stool,no fawn,no fever on examination abdomen is soft and nontender continue antibiotics,Advance to full liquids
[2018-06-11 08:05] LABS: BASO % 0.3 % (0.0-2.0); EOS % 0.2 % (0.0-4.0); HEMOGLOBIN 13.5 g/dL (11.0-16.0); LYMPH # 1.8 K/uL (1.0-4.3); LYMPH % 13.1 % (20.0-40.0); MEAN CELL VOLUME 87.9 fL (81.0-99.0); MEAN CORPUSCULAR HEMOGLOBIN 29.5 pg (27.0-31.0); MEAN CORPUSCULAR HGB CONC 33.6 g/dL (33.0-37.0); MEAN PLATELET VOLUME 11.1 fL (7.2-11.7); MONO # 0.6 K/uL (0.0-0.8); MONO % 4.5 % (0.0-10.0); NEUT % 81.9 % (50.0-75.0); NRBC % 0.1 % (0.0-2.0); RBC 4.58 Mil/uL (3.80-5.20); RED CELL DISTRIBUTION WIDTH 13.5 % (11.5-14.5); WHITE BLOOD COUNT 13.4 K/uL (4.8-10.8)
[2018-06-11 08:27] LABS: BLOOD UREA NITROGEN 7 mg/dL (7-17)
[2018-06-11 08:28] LABS: ALB/GLOB RATIO 1.1 (1.0-2.1); ALBUMIN 3.8 g/dL (3.5-5.0); ALT/SGPT 26 U/L (9-52); AST/SGOT 34 U/L (14-36); CALCIUM 9.2 mg/dl (8.6-10.4); GFR NON-AFRICAN AMERICAN > 60
[2018-06-11] MEDS: Saccharomyces Boulardi 250 mg Cap PO SCH ×2 (10:35→17:32)
[2018-06-11] MEDS: Enoxaparin 40 mg Syringe SC SCH (10:35)
--- NOTE | 2018-06-11 10:57 | CARD ---
APPROVED REPORT Date of service: 06/10/2018 EKG Measurement Heart [id number] <Conclusion> Sinus tachycardia Otherwise normal ECG
[2018-06-11] MEDS: Ciprofloxacin 200mg/100ml D5W 100 ML IVPB SCH (11:40)
[2018-06-11] MEDS ORDERED: Sodium Chloride 0.9% 1,000 ML IV SCH (15:35)
[2018-06-12] MEDS: Ciprofloxacin 200mg/100ml D5W 100 ML IVPB SCH ×2 (00:24→13:20)
[2018-06-12] MEDS: metroNIDAZOLE IV 500 mg/100 ml 500 MG/100 ML BAG IVPB SCH ×2 (02:03→10:47)
--- NOTE | 2018-06-12 07:40 | CP.PCM.PN ---
Subjective - Date & Time of Evaluation Date of Evaluation: 06/12/18 Time of Evaluation: 07:40 - Subjective Subjective: PGY-1 Medicine Progress Note for Dr. Dean Objective - Vital Signs/Intake and Output Vital Signs (last 24 hours): Temp Pulse Resp BP Pulse Ox 98 F 75 20 126/78 96 06/11/18 23:36 06/12/18 04:00 06/11/18 23:36 06/11/18 23:36 06/11/18 23:36 Intake and Output: 06/12/18 06/12/18 06:59 18:59 Intake Total 600 Balance 600 - Medications Medications: Current Medications Enoxaparin Sodium (Lovenox) 40 mg SC DAILY [facility] Last Admin: 06/11/18 10:35 Dose: 40 mg Ciprofloxacin (Cipro 200mg/100ml D5w) 100 mls @ 67 mls/hr IVPB Q12H [facility]; Protocol Last Admin: 06/12/18 00:24 Dose: 67 mls/hr Metronidazole (Flagyl) 500 mg in 100 mls @ 100 mls/hr IVPB Q8H [facility]; Protocol Last Admin: 06/12/18 02:03 Dose: 100 mls/hr Ondansetron HCl (Zofran Inj) 4 mg IVP Q6H PRN PRN Reason: Nausea/Vomiting Pneumococcal Polyvalent Vaccine (Pneumovax 23 Vaccine) 0.5 ml IM .ONCE ONE Stop: 06/12/18 10:01 Saccharomyces Boulardii (Florastor) 250 mg PO BID [facility] Last Admin: 06/11/18 17:32 Dose: 250 mg - Labs Labs: 06/11/18 07:44 06/11/18 07:44
[2018-06-12 08:03] VITALS: BP 120/76; PULSE 72; TEMP 97.3; O2SAT 97
[2018-06-12 08:27] LABS: BASO % 0.6 % (0.0-2.0); EOS # 0.1 K/uL (0.0-0.7); EOS % 1.9 % (0.0-4.0); HEMOGLOBIN 13.1 g/dL (11.0-16.0); LYMPH # 1.8 K/uL (1.0-4.3); LYMPH % 25.4 % (20.0-40.0); MEAN CELL VOLUME 86.8 fL (81.0-99.0); MEAN CORPUSCULAR HEMOGLOBIN 29.7 pg (27.0-31.0); MEAN CORPUSCULAR HGB CONC 34.2 g/dL (33.0-37.0); MEAN PLATELET VOLUME 11.1 fL (7.2-11.7); MONO # 0.6 K/uL (0.0-0.8); MONO % 8.8 % (0.0-10.0); NEUT # 4.4 K/uL (1.8-7.0); NEUT % 63.3 % (50.0-75.0); NRBC % 0.1 % (0.0-2.0); RBC 4.41 Mil/uL (3.80-5.20); RED CELL DISTRIBUTION WIDTH 13.7 % (11.5-14.5)
[2018-06-12 09:08] LABS: ALB/GLOB RATIO 1.1 (1.0-2.1); ALBUMIN 3.7 g/dL (3.5-5.0); ALT/SGPT 20 U/L (9-52); AST/SGOT 30 U/L (14-36); BLOOD UREA NITROGEN 6 mg/dL (7-17); CALCIUM 9.1 mg/dl (8.6-10.4); GFR NON-AFRICAN AMERICAN > 60
[2018-06-12] MEDS ORDERED: Potassium Chloride 20 mEq ER Tab PO ONE ×2 (09:50→11:00)
--- NOTE | 2018-06-12 09:51 | CP.PCM.DIS ---
<José Kilgore - Last Filed: 06/12/18 18:12> Provider - Provider Date of Admission: 06/10/18 09:43 Attending physician: Christiano Dean MD Primary care physician: Non [facility] Provider Time Spent in preparation of Discharge (in minutes): 40 Diagnosis - Discharge Diagnosis (1) Colitis Status: Acute Hospital Course - Lab Results Lab Results: Micro Results 06/11/18 08:22 Stool Ova and Parasite Concentrate Exam - Final 06/10/18 17:52 Stool Ova and Parasite Concentrate Exam - Final 06/10/18 09:00 Blood-Venous Blood Culture - Preliminary NO GROWTH AFTER 24 HOURS 06/10/18 09:15 Blood-Venous Blood Culture - Preliminary NO GROWTH AFTER 24 HOURS 06/10/18 07:12 Urine Random Urine Culture - Final <10,000 CFU/ML. MULTIPLE SPECIES. PROBABLE CONTAMINATION. Most Recent Lab Values WBC 7.0 K/uL (4.8-10.8) 06/12/18 08:14 RBC 4.41 Mil/uL (3.80-5.20) 06/12/18 08:14 Hgb 13.1 g/dL (11.0-16.0) 06/12/18 08:14 Hct 38.3 % (34.0-47.0) 06/12/18 08:14 MCV 86.8 fL (81.0-99.0) 06/12/18 08:14 MCH 29.7 pg (27.0-31.0) 06/12/18 08:14 MCHC 34.2 g/dL (33.0-37.0) 06/12/18 08:14 RDW 13.7 % (11.5-14.5) 06/12/18 08:14 Plt Count 250 K/uL (130-400) 06/12/18 08:14 MPV 11.1 fL (7.2-11.7) 06/12/18 08:14 Neut % (Auto) 63.3 % (50.0-75.0) 06/12/18 08:14 Lymph % (Auto) 25.4 % (20.0-40.0) 06/12/18 08:14 Dukes % (Auto) 8.8 % (0.0-10.0) 06/12/18 08:14 Eos % (Auto) 1.9 % (0.0-4.0) 06/12/18 08:14 Baso % (Auto) 0.6 % (0.0-2.0) 06/12/18 08:14 Neut # (Auto) 4.4 K/uL (1.8-7.0) 06/12/18 08:14 Lymph # (Auto) 1.8 K/uL (1.0-4.3) 06/12/18 08:14 Dukes # (Auto) 0.6 K/uL (0.0-0.8) 06/12/18 08:14 Eos # (Auto) 0.1 K/uL (0.0-0.7) 06/12/18 08:14 Baso # (Auto) 0.0 K/uL (0.0-0.2) 06/12/18 08:14 Neutrophils % (Manual) 75 % (50-75) 06/10/18 07:12 Band Neutrophils % 12 % (0-2) H* 06/10/18 07:12 Lymphocytes % (Manual) 6 % (20-40) L 06/10/18 07:12 Monocytes % (Manual) 7 % (0-10) 06/10/18 07:12 Platelet Estimate Normal (NORMAL) 06/10/18 07:12 Large Platelets Present 06/10/18 07:12 Giant Platelets Present 06/10/18 07:12 Anisocytosis (manual) Slight 06/10/18 07:12 pO2 62 mm/Hg (30-55) H 06/10/18 09:26 VBG pH 7.38 (7.32-7.43) 06/10/18 09:26 VBG pCO2 37 mmHg (40-60) L 06/10/18 09:26 VBG HCO3 22.6 mmol/L 06/10/18 09:26 VBG Total CO2 23.0 mmol/L (22-28) 06/10/18 09:26 VBG O2 Sat (Calc) 95.1 % (40-65) H 06/10/18 09:26 VBG Base Excess -2.8 mmol/L (0.0-2.0) L 06/10/18 09:26 VBG Potassium 3.3 mmol/L (3.6-5.2) L 06/10/18 09:26 Sodium 137.0 mmol/l (132-148) 06/10/18 09:26 Chloride 107.0 mmol/L (98-107) 06/10/18 09:26 Glucose 112 mg/dl (65-105) H 06/10/18 09:26 Lactate 0.8 mmol/L (0.7-2.1) 06/10/18 09:26 Sodium 141 mmol/L (132-148) 06/12/18 08:14 Potassium 3.5 mmol/L (3.6-5.2) L 06/12/18 08:14 Chloride 107 mmol/L (98-107) 06/12/18 08:14 Carbon Dioxide 25 mmol/L (22-30) 06/12/18 08:14 Anion Gap 12 (10-20) 06/12/18 08:14 BUN 6 mg/dL (7-17) L 06/12/18 08:14 Creatinine 0.5 mg/dL (0.7-1.2) L 06/12/18 08:14 Est GFR ( Amer) > 60 06/12/18 08:14 Est GFR (Non-Af Amer) > 60 06/12/18 08:14 Random Glucose 97 mg/dL (65-105) D 06/12/18 08:14 Calcium 9.1 mg/dl (8.6-10.4) 06/12/18 08:14 Total Bilirubin 0.2 mg/dL (0.2-1.3) 06/12/18 08:14 AST 30 U/L (14-36) 06/12/18 08:14 ALT 20 U/L (9-52) 06/12/18 08:14 Alkaline Phosphatase 107 U/L (38-126) 06/12/18 08:14 Total Protein 7.1 g/dL (6.3-8.3) 06/12/18 08:14 Albumin 3.7 g/dL (3.5-5.0) 06/12/18 08:14 Globulin 3.4 gm/dL (2.2-3.9) 06/12/18 08:14 Albumin/Globulin Ratio 1.1 (1.0-2.1) 06/12/18 08:14 Lipase 61 U/L (23-300) 06/10/18 07:12 Procalcitonin 0.25 NG/ML (0.19-0.49) 06/10/18 09:30 Venous Blood Potassium 3.3 mmol/L (3.6-5.2) L 06/10/18 09:26 Urine Color Roslyn (YELLOW) 06/10/18 07:12 Urine Clarity Hazy (Clear) 06/10/18 07:12 Urine pH 5.0 (5.0-8.0) 06/10/18 07:12 Ur Specific Jackson 1.018 (1.003-1.030) 06/10/18 07:12 Urine Protein Negative mg/dL (NEGATIVE) 06/10/18 07:12 Urine Glucose (UA) Normal mg/dL (Normal) 06/10/18 07:12 Urine Ketones Trace mg/dL (NEGATIVE) 06/10/18 07:12 Urine Blood 2+ (NEGATIVE) H 06/10/18 07:12 Urine Nitrate Negative (NEGATIVE) 06/10/18 07:12 Urine Bilirubin Negative (NEGATIVE) 06/10/18 07:12 Urine Urobilinogen Normal mg/dL (0.2-1.0) 06/10/18 07:12 Ur Leukocyte Esterase Neg Anatoliy/uL (Negative) 06/10/18 07:12 Urine WBC (Auto) 3 /hpf (0-5) 06/10/18 07:12 Urine RBC (Auto) 4 /hpf (0-3) H 06/10/18 07:12 Ur Squamous Epith Cells 39 /hpf (0-5) H 06/10/18 07:12 Urine Bacteria Rare (<OCC) 06/10/18 07:12 Stool Occult Blood Negative (NEGATIVE) 06/10/18 07:44 Stool Leukocytes, Qual Positive (NEGATIVE) H 06/10/18 17:52 C. difficile Ag & Toxin Negative (NEGATIVE) 06/10/18 17:52 Influenza Typ A,B (EIA) Negative for flu a/b (NEGATIVE) 06/10/18 17:11 - Hospital Course Hospital Course: HPI: Patient is a 58 year old female with past medical history cholecystitis, pancreatitis, lung nodule (<6cm), who presents to the ED with complaints of epigastric/cramping diffuse abdominal discomfort that started monday night that intensified by Monday morning. Patient admits to associated symptoms of water diarrhea [id number] since yesterday morning. Patient states that she took OTC Motrin 2 tablets yesterday for abdominal pain and subjective fever as well as chamomile honey tea, which did not provide significant relief for her abdominal pain. Patient admits to associated symptoms of muscle aches, subjective fever, decrease PO intake and melena. Patient denies any symptoms of chills, nausea, vomiting, hematochezia, hematuria, urinary symptoms. The following is a summary of hospital course. For full detail, please refer to EMR: Colitis -Lipase 61 on admission -stool leukocytes positive -c diff negative, ova and parasite x 2 negative -blood culture negative x 2 after 24 hrs -Abdomen/Pelvis CT without contrast (06/10): Fluid in the small bowels and left hemicolon with mild mural thickening likely represents acute nonspecific infectious/inflammatory enterocolitis in this clinical setting. No evidence for bowel obstruction. -Cipro 400mg IV Q12H -Flagyl 500mg IV Q8H -Zofran 4mg IV Q6H prn for nausea -Florastor 250mg PO BID Melena, resolved -no further melena reported -Hb/Hct wnl -stool occult Negative PPx, Diet, Disposition -DVT ppx: scds, lovenox 40 mg SC daily -Diet: advance to full liquid, continue to advance as tolerated On discharge: Patient is medically stable for discharge to home, as per Dr. Dean. Please take medications as prescribed: Ciprofloxacin 500 mg PO tablet, 1 tablet daily for 10 days Flagyl 500 mg PO tablet, 1 tablet daily for 10 days Patient is instructed to follow up at [facility] within 3-5 days of discharge for further monitoring and care. Contact information has been provided below. Please call to schedule an appointment [place] [address] If symptoms worsen or persist, please return to the ED immediately. - Date & Time of H&P Date of H&P: 06/12/18 Time of H&P: 18:13 Discharge Exam - Head Exam Head Exam: ATRAUMATIC, NORMAL INSPECTION, NORMOCEPHALIC - Eye Exam Eye Exam: EOMI, Normal appearance, PERRL Pupil Exam: NORMAL ACCOMODATION - ENT Exam ENT Exam: Mucous Membranes Moist, Normal Exam - Neck Exam Neck exam: Full Rom, Normal Inspection - Respiratory Exam Respiratory Exam: Clear to PA & Lateral, NORMAL BREATHING PATTERN, UNREMARKABLE. absent: Accessory Muscle Use, Respiratory Distress - Cardiovascular Exam Cardiovascular Exam: REGULAR RHYTHM, +S1, +S2 - GI/Abdominal Exam GI & Abdominal Exam: Normal Bowel Sounds, Soft, Unremarkable - Extremities Exam Extremities exam: full ROM, normal capillary refill, normal inspection, pedal pulses present - Back Exam Back exam: NORMAL INSPECTION - Neurological Exam Neurological exam: Alert, CN II-XII Intact, Normal Gait, Oriented x3 - Skin Skin Exam: Dry, Intact, Normal Color, Warm Discharge Plan - Discharge Medications Prescriptions: Ciprofloxacin [Cipro] 500 mg PO DAILY #10 tab Metronidazole [Flagyl] 500 mg PO DAILY #10 tablet - Follow Up Plan Condition: GOOD Disposition: HOME/ ROUTINE Instructions: Ciprofloxacin (Systemic), Metronidazole (Systemic), Colitis (DC) Additional Instructions: Patient is medically stable for discharge to home, as per Dr. Dean. Please take medications as prescribed: Ciprofloxacin 500 mg PO tablet, 1 tablet daily for 10 days Flagyl 500 mg PO tablet, 1 tablet daily for 10 days Patient is instructed to follow up at [facility] within 3-5 days of discharge for further monitoring and care. Contact information has been provided below. Please call to schedule an appointment [place] [address] If symptoms worsen or persist, please return to the ED immediately. El paciente se encuentra mdicamente estable para el gertrude hospitalaria, segn el Dr. Dean. Por favor, tome los medicamentos segn lo prescrito: Comprimido de ciprofloxacina 500 mg PO, 1 comprimido al da yariel 10 uribe Tableta Flagyl 500 mg PO, 1 tableta diaria yariel 10 uribe Se instruye al paciente para que realice un seguimiento en [facility] dentro de los 3-5 uribe posteriores al gertrude hospitalaria para un seguimiento y atencin adicionales. La informacin de contacto se wyatt proporcionado a continuacin. Por favor llame para programar shaylee troy y establecer el cuidado. [facility] [address] [place] [address] Telfono: [phone] Si los sntomas empeoran o persisten, regrese inmediatamente al servicio de urgencias. Referrals: [facility] [Outside] Non [facility] Provider, [Primary Care Provider] - 06/18/18 9:00 am <Christiano Dean - Last Filed: 06/12/18 18:30> Provider - Provider Date of Admission: 06/10/18 09:43 Attending physician: Christiano Dean MD Primary care physician: Non [facility] Provider Hospital Course - Lab Results Lab Results: Micro Results 06/10/18 09:00 Blood-Venous Blood Culture - Preliminary NO GROWTH AFTER 48 HOURS 06/10/18 09:15 Blood-Venous Blood Culture - Preliminary NO GROWTH AFTER 48 HOURS 06/11/18 08:22 Stool Ova and Parasite Concentrate Exam - Final 06/10/18 17:52 Stool Ova and Parasite Concentrate Exam - Final 06/10/18 07:12 Urine Random Urine Culture - Final <10,000 CFU/ML. MULTIPLE SPECIES. PROBABLE CONTAMINATION. Most Recent Lab Values WBC 7.0 K/uL (4.8-10.8) 06/12/18 08:14 RBC 4.41 Mil/uL (3.80-5.20) 06/12/18 08:14 Hgb 13.1 g/dL (11.0-16.0) 06/12/18 08:14 Hct 38.3 % (34.0-47.0) 06/12/18 08:14 MCV 86.8 fL (81.0-99.0) 06/12/18 08:14 MCH 29.7 pg (27.0-31.0) 06/12/18 08:14 MCHC 34.2 g/dL (33.0-37.0) 06/12/18 08:14 RDW 13.7 % (11.5-14.5) 06/12/18 08:14 Plt Count 250 K/uL (130-400) 06/12/18 08:14 MPV 11.1 fL (7.2-11.7) 06/12/18 08:14 Neut % (Auto) 63.3 % (50.0-75.0) 06/12/18 08:14 Lymph % (Auto) 25.4 % (20.0-40.0) 06/12/18 08:14 Dukes % (Auto) 8.8 % (0.0-10.0) 06/12/18 08:14 Eos % (Auto) 1.9 % (0.0-4.0) 06/12/18 08:14 Baso % (Auto) 0.6 % (0.0-2.0) 06/12/18 08:14 Neut # (Auto) 4.4 K/uL (1.8-7.0) 06/12/18 08:14 Lymph # (Auto) 1.8 K/uL (1.0-4.3) 06/12/18 08:14 Dukes # (Auto) 0.6 K/uL (0.0-0.8) 06/12/18 08:14 Eos # (Auto) 0.1 K/uL (0.0-0.7) 06/12/18 08:14 Baso # (Auto) 0.0 K/uL (0.0-0.2) 06/12/18 08:14 Neutrophils % (Manual) 75 % (50-75) 06/10/18 07:12 Band Neutrophils % 12 % (0-2) H* 06/10/18 07:12 Lymphocytes % (Manual) 6 % (20-40) L 06/10/18 07:12 Monocytes % (Manual) 7 % (0-10) 06/10/18 07:12 Platelet Estimate Normal (NORMAL) 06/10/18 07:12 Large Platelets Present 06/10/18 07:12 Giant Platelets Present 06/10/18 07:12 Anisocytosis (manual) Slight 06/10/18 07:12 pO2 62 mm/Hg (30-55) H 06/10/18 09:26 VBG pH 7.38 (7.32-7.43) 06/10/18 09:26 VBG pCO2 37 mmHg (40-60) L 06/10/18 09:26 VBG HCO3 22.6 mmol/L 06/10/18 09:26 VBG Total CO2 23.0 mmol/L (22-28) 06/10/18 09:26 VBG O2 Sat (Calc) 95.1 % (40-65) H 06/10/18 09:26 VBG Base Excess -2.8 mmol/L (0.0-2.0) L 06/10/18 09:26 VBG Potassium 3.3 mmol/L (3.6-5.2) L 06/10/18 09:26 Sodium 137.0 mmol/l (132-148) 06/10/18 09:26 Chloride 107.0 mmol/L (98-107) 06/10/18 09:26 Glucose 112 mg/dl (65-105) H 06/10/18 09:26 Lactate 0.8 mmol/L (0.7-2.1) 06/10/18 09:26 Sodium 141 mmol/L (132-148) 06/12/18 08:14 Potassium 3.5 mmol/L (3.6-5.2) L 06/12/18 08:14 Chloride 107 mmol/L (98-107) 06/12/18 08:14 Carbon Dioxide 25 mmol/L (22-30) 06/12/18 08:14 Anion Gap 12 (10-20) 06/12/18 08:14 BUN 6 mg/dL (7-17) L 06/12/18 08:14 Creatinine 0.5 mg/dL (0.7-1.2) L 06/12/18 08:14 Est GFR ( Amer) > 60 06/12/18 08:14 Est GFR (Non-Af Amer) > 60 06/12/18 08:14 Random Glucose 97 mg/dL (65-105) D 06/12/18 08:14 Calcium 9.1 mg/dl (8.6-10.4) 06/12/18 08:14 Total Bilirubin 0.2 mg/dL (0.2-1.3) 06/12/18 08:14 AST 30 U/L (14-36) 06/12/18 08:14 ALT 20 U/L (9-52) 06/12/18 08:14 Alkaline Phosphatase 107 U/L (38-126) 06/12/18 08:14 Total Protein 7.1 g/dL (6.3-8.3) 06/12/18 08:14 Albumin 3.7 g/dL (3.5-5.0) 06/12/18 08:14 Globulin 3.4 gm/dL (2.2-3.9) 06/12/18 08:14 Albumin/Globulin Ratio 1.1 (1.0-2.1) 06/12/18 08:14 Lipase 61 U/L (23-300) 06/10/18 07:12 Procalcitonin 0.25 NG/ML (0.19-0.49) 06/10/18 09:30 Venous Blood Potassium 3.3 mmol/L (3.6-5.2) L 06/10/18 09:26 Urine Color Roslyn (YELLOW) 06/10/18 07:12 Urine Clarity Hazy (Clear) 06/10/18 07:12 Urine pH 5.0 (5.0-8.0) 06/10/18 07:12 Ur Specific Jackson 1.018 (1.003-1.030) 06/10/18 07:12 Urine Protein Negative mg/dL (NEGATIVE) 06/10/18 07:12 Urine Glucose (UA) Normal mg/dL (Normal) 06/10/18 07:12 Urine Ketones Trace mg/dL (NEGATIVE) 06/10/18 07:12 Urine Blood 2+ (NEGATIVE) H 06/10/18 07:12 Urine Nitrate Negative (NEGATIVE) 06/10/18 07:12 Urine Bilirubin Negative (NEGATIVE) 06/10/18 07:12 Urine Urobilinogen Normal mg/dL (0.2-1.0) 06/10/18 07:12 Ur Leukocyte Esterase Neg Anatoliy/uL (Negative) 06/10/18 07:12 Urine WBC (Auto) 3 /hpf (0-5) 06/10/18 07:12 Urine RBC (Auto) 4 /hpf (0-3) H 06/10/18 07:12 Ur Squamous Epith Cells 39 /hpf (0-5) H 06/10/18 07:12 Urine Bacteria Rare (<OCC) 06/10/18 07:12 Stool Occult Blood Negative (NEGATIVE) 06/10/18 07:44 Stool Leukocytes, Qual Positive (NEGATIVE) H 06/10/18 17:52 C. difficile Ag & Toxin Negative (NEGATIVE) 06/10/18 17:52 Influenza Typ A,B (EIA) Negative for flu a/b (NEGATIVE) 06/10/18 17:11 Attending/Attestation - Attestation I have personally seen and examined this patient.: Yes I have fully participated in the care of the patient.: Yes I have reviewed all pertinent clinical information, including history, physical exam and plan: Yes Notes (Text): Patient has no abdominal pain,tolerating diet we will discharge home on cipro and flagyl. follow our clinic,out patient colonoscopy/GI evaluation
[2018-06-12] MEDS ORDERED: Pneumococcal 23-Valent Vaccine IM ONE (10:00)
[2018-06-12] MEDS: Saccharomyces Boulardi 250 mg Cap PO SCH (10:47)
[2018-06-12] MEDS: Enoxaparin 40 mg Syringe SC SCH (10:48)
== END 2018-06-12 16:13 | disposition home or self-care (01) ==
LOC: SUPCPDRO 06:20 → C.ER 06:20 → C.9E 09:43 → C.5S 10:41
PROVIDERS: ADMIT Internal Medicine; ATTEND Internal Medicine
DX: A09 Infectious gastroenteritis and colitis, unspecified (principal); D72.825 Bandemia; Z90.49 Acquired absence of other specified parts of digestive tract; Z80.3 Family history of malignant neoplasm of breast; Z23 Encounter for immunization
CPT/HCPCS: 36415; 71046; 74176; 80053; 81001; 82803; 83690; 84145; 85025; 87040; 87045; 87086; 87177; 87209; 87230; 87804; 89055; 90471; 90732; 93005; 96360; 96365; 96374; 99285; G0328; G0378; J0744; J1650; J2405; J2543; J7030

== ENCOUNTER 2018-07-12 17:25 | Emergency (ER) | payer OTHER ==
[2018-07-12 17:33] VITALS: BMI 25.6
[2018-07-12 17:35] VITALS: BP 143/83; PULSE 88; TEMP 99.1; O2SAT 99
--- NOTE | 2018-07-12 19:38 | C.PDOC ---
Time Seen by Provider: 07/12/18 18:27 Chief Complaint (Nursing): ENT Problem Past Medical History Vital Signs: Last Vital Signs Temp 99.1 F 07/12/18 17:33 Pulse 88 07/12/18 17:33 Resp 18 07/12/18 17:33 BP 143/83 07/12/18 17:33 Pulse Ox 99 07/12/18 17:33 Primary Care Provider: FAMILY PROVIDER,NO - Medical History PMH: Gall Bladder Disease Denies: Chronic Kidney Disease Surgical History: Cholecystectomy Family History: States: Unknown Family Hx - Social History Hx Tobacco Use: No Hx Alcohol Use: No Hx Substance Use: No - Immunization History Hx Tetanus Toxoid Vaccination: No Hx Influenza Vaccination: No Hx Pneumococcal Vaccination: No ED Course And Treatment O2 Sat by Pulse Oximetry: 99 Disposition Counseled Patient/Family Regarding: Studies Performed, Diagnosis, Rx Given - Disposition Disposition: HOME/ ROUTINE Disposition Time: 19:33 Condition: GOOD Prescriptions: Benzonatate [Tessalon Perles] 100 mg PO TID #15 sgl Ibuprofen [Motrin Tab] 600 mg PO Q8 #30 tab Prednisone [Deltasone] 2 tab PO DAILY #6 tablet Instructions: Viral Pharyngitis (DC) - Clinical Impression Clinical Impression: Pharyngitis
--- NOTE | 2018-07-12 19:39 | C.PDOC ---
History Of Present Illness 58 y/o female presents to ED with complaints of sore throat and dry cough x1 day. Patient reports subjective fevers. Otherwise denies ear pain, nausea, vomiting, dizziness, weakness, chest pain, SOB, or abdominal pain. States she has not taken anything prior to arrival and has no sick contacts. Time Seen by Provider: 07/12/18 18:27 Chief Complaint (Nursing): ENT Problem History Per: Patient History/Exam Limitations: None Onset/Duration Of Symptoms: Days (1) Current Symptoms Are (Timing): Still Present Past Medical History Reviewed: Historical Data, Nursing Documentation, Vital Signs Vital Signs: Last Vital Signs Temp 99.1 F 07/12/18 17:33 Pulse 88 07/12/18 17:33 Resp 18 07/12/18 17:33 BP 143/83 07/12/18 17:33 Pulse Ox 99 07/12/18 17:33 Primary Care Provider: FAMILY PROVIDER,NO - Medical History PMH: Gall Bladder Disease Denies: Chronic Kidney Disease Surgical History: Cholecystectomy Family History: States: No Known Family Hx - Social History Hx Tobacco Use: No Hx Alcohol Use: No Hx Substance Use: No - Immunization History Hx Tetanus Toxoid Vaccination: No Hx Influenza Vaccination: No Hx Pneumococcal Vaccination: No Review Of Systems Except As Marked, All Systems Reviewed And Found Negative. Constitutional: Positive for: Fever (subjective). Negative for: Chills, Weakness Eyes: Negative for: Pain ENT: Positive for: Throat Pain (sore throat) Cardiovascular: Negative for: Chest Pain Respiratory: Positive for: Cough. Negative for: Shortness of Breath Gastrointestinal: Negative for: Nausea, Vomiting, Abdominal Pain Neurological: Negative for: Weakness, Numbness, Dizziness Physical Exam - Physical Exam Appears: Non-toxic, No Acute Distress, Other (Sitting comfortably) Skin: Warm, Dry Head: Normacephalic Eye(s): bilateral: Normal Inspection, PERRL, EOMI Ear(s): Bilateral: Normal Oral Mucosa: Moist Throat: Erythema, Exudate Neck: Normal ROM, Supple Lymphatic: No Adenopathy Cardiovascular: Rhythm Regular, No Murmur Respiratory: Normal Breath Sounds, No Rales, No Rhonchi, No Wheezing Gastrointestinal/Abdominal: Soft, No Tenderness Neurological/Psych: Oriented x3, Normal Speech ED Course And Treatment O2 Sat by Pulse Oximetry: 99 (RA) Pulse Ox Interpretation: Normal - Radiology CXR: Viewed By Me CXR Interpretation: Yes: No Acute Disease. No: Infiltrates Progress Note: Rapid strep. Per chart review, history of ?pulmonary nodule, will obtain CXR given cough. // CXR without infiltrates or consolidation, strep test negative, symptomatic treatment Disposition - Disposition Disposition: HOME/ ROUTINE Disposition Time: 17:35 Condition: GOOD Prescriptions: Benzonatate [Tessalon Perles] 100 mg PO TID #15 sgl Ibuprofen [Motrin Tab] 600 mg PO Q8 #30 tab Prednisone [Deltasone] 2 tab PO DAILY #6 tablet Instructions: Viral Pharyngitis (DC) Forms: Pocketbook (Latvian) - Clinical Impression Clinical Impression: Pharyngitis - PA / DATA PROCESSING CONSULTANT / Resident Statement MD/DO has reviewed & agrees with the documentation as recorded. - Scribe Statement The provider has reviewed the documentation as recorded by the Scribe Linda Uriostegui All medical record entries made by the Scribe were at my direction and personally dictated by me. I have reviewed the chart and agree that the record accurately reflects my personal performance of the history, physical exam, medical decision making, and the department course for this patient. I have also personally directed, reviewed, and agree with the discharge instructions and disposition.
[2018-07-12 19:48] VITALS: RESP 20
--- NOTE | 2018-07-13 06:41 | RAD ---
Date of service: 07/12/2018 HISTORY: cough, history of lung nodule COMPARISON: Chest x-ray 06/10/2018 TECHNIQUE: Chest PA and lateral FINDINGS: LUNGS: No focal consolidation is seen. PLEURA: No pleural effusion is identified. CARDIOVASCULAR: Heart size is within normal limits. Atherosclerotic calcifications noted of the aorta. OSSEOUS STRUCTURES: Degenerative changes noted of the spine. VISUALIZED UPPER ABDOMEN: Surgical clips noted right upper quadrant, likely from prior cholecystectomy. OTHER FINDINGS: None. IMPRESSION: No acute cardiopulmonary process seen. Please note chest x-ray has limited sensitivity for detection of lung nodules. If there is clinical concern for lung nodule, consider CT chest for further evaluation.
== END 2018-07-12 19:47 | disposition home or self-care (01) ==
LOC: C.ER 17:25
DX: J02.9 Acute pharyngitis, unspecified (principal)